=== PATIENT | male | born 1935 | race Caucasian/White ===

== ENCOUNTER 2019-09-13 13:16 | Outpatient (CLI) | payer MEDICARE, SELFPAY ==
--- NOTE | ~2019-09-13 | MR_ITS ---
EXAMINATION: MR hip RT wo con DATE: 09/13/2019 16:02 INDICATION: Right lower limb pain. TECHNIQUE: Magnetic resonance imaging (MRI) of the right hip was performed without intravenous contra st. Sequences included axial and coronal PD-weighted FS FSE and axial T1-weighted FSE of the pelvis. Sequences of the hip included 2D FIESTA, T1-weighted fast GRE, and axial, coronal, and sagittal PD-we ighted FS FSE. COMPARISON: Pelvis and right hip radiographs 08/20/2019, 04/13/11 FINDINGS: Bones/cartilage: There is lumbar dextrocurvature and severe spondylosis. No fracture. There is a chronic 11 mm nonaggr essive lytic lesion with sclerotic margin in the intertrochanteric region of proximal right femur, li rachel a benign lesion such as fibrous dysplasia, intraosseous lipoma, or liposclerosing myxofibrous tu mor. There is a total left hip arthroplasty with associated artifact. There is mild right hip osteoar thritis. Labrum: There is a tear of the right acetabular labrum. Fluid: There is no right hip joint effusion. There is mild right-sided trochanteric bursitis. Soft tissues: There is moderate tendinopathy of the right hamstring origin. The right iliopsoas tendon is normal. T he right gluteus minimus and gluteus medius tendons are normal. IMPRESSION: 1. Mild right hip osteoarthritis. Reviewed, dictated and finalized at location A. SYSTEMS DEVELOPER
== END 2019-09-13 13:17 | disposition home or self-care (01) ==
PROVIDERS: PCP Family Medicine; Visit Provider Family Medicine
DX: M79.669 Pain in unspecified lower leg (principal); M16.11 Unilateral primary osteoarthritis, right hip
CPT/HCPCS: 73721

== ENCOUNTER 2019-10-11 13:09 | Emergency (ER) | payer MEDICARE, SELFPAY ==
--- NOTE | ~2019-10-11 | XR_ITS ---
EXAMINATION: XR chest 1V portable EXAM DATE: 10/11/2019 14:48 INDICATION: Shortness of breath. TECHNIQUE: Portable AP frontal chest x-ray was obtained. Comparison is made to prior examination from 05/30/2019. FINDINGS: Again there is elevated right hemidiaphragm. The cardiomediastinal silhouette is prominent but magnified on this AP technique. Sternotomy wires are present without findings to suggest sternal dehiscence. Probably right basilar atelectasis. The lungs are otherwise clear. There are no pleural effusions. The cardiomediastinal silhouette is within normal limits. There is no pneumothorax suspe cted. The bones and soft tissues are unremarkable. There is aortic arterial sclerosis. IMPRESSION: Right basilar atelectasis with elevated right hemidiaphragm, present in May but new s makayla January. Reviewed, dictated and finalized at location B. ER SECURITY ADMINISTRATOR IMPRESSION: Right basilar atelectasis with elevated right hemidiaphragm, presen t in May but new since January.
[2019-10-11 13:11] VITALS: BP 122/68; PULSE 90; RESP 18; TEMP 36.6; O2SAT 93
--- NOTE | 2019-10-11 13:55 | ED.SOB ---
HPI - SOB/Dyspnea General Chief Complaint: Shortness of Breath/Dyspnea Stated Complaint: SOB Time Seen by Provider: 10/11/19 13:34 Source: patient Mode of arrival: ambulatory Limitations: no limitations History of Present Illness HPI Narrative: Pt is an 84 y/o male who presents to the ED with c/o SOB with exertion. Per family, pt was taken off insulin a while ago for his diabetes and recently his BS has been in the 200's. His PCP told him that if it stayed in the 200's they would put him back on insulin but they could not get a hold of his PCP. His PCP is Dr. Guido and his mix maker is Dr. Cheung. He denies a cough or difficulty urinating and states that he is on a 20mg water pill. 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 MD elicited complaint: shortness of breath Timing: constant Exacerbating factors: exertion Relieving factors: rest Associated symptoms: denies other symptoms Related Data Home Medications Medication Instructions Recorded Confirmed atorvastatin 40 mg tablet 40 mg PO DAILY 07/02/19 ezetimibe 10 mg tablet 10 mg PO DAILY 07/02/19 folic acid 800 mcg tablet 0.8 mg PO DAILY 07/02/19 nebivolol 10 mg tablet 10 mg PO DAILY 07/02/19 sitagliptin 100 mg tablet 100 mg PO DAILY 07/02/19 acetaminophen 500 mg PO Q6H PRN 10/11/19 aspirin [Aspir-81] 10/11/19 budesonide-formoterol [Symbicort] INHALATION 10/11/19 nifedipine PO 10/11/19 Allergies Allergy/AdvReac Type Severity Reaction Status Date / Time Penicillins Allergy Severe Anaphylaxis Verified 10/11/19 14:54 Review of Systems Review of Systems: All systems reviewed & are unremarkable except as noted in HPI and below Respiratory: Respiratory: Denies cough and Reports dyspnea Genitourinary: Genitourinary: Denies other (difficulty urinating) [facility] Past Medical History Medical History Allergic rhinitis Atherosclerotic heart disease of [place] coronary artery with unspecified angina pectoris Cervical radiculopathy due to degenerative joint disease of spine Chronic right SI joint pain History of stent insertion of renal artery Kidney stones Mixed conductive and sensorineural hearing loss, bilateral Mixed hyperlipidemia Occlusion and stenosis of bilateral carotid arteries Other specific joint derangements of right hip, not elsewhere classified Peripheral arterial disease 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 HEAD: Normocephalic, atraumatic. EYES: PERRLA and EOMI. ENT: Nares clear,. Mucous membranes moist. NECK: Supple. CHEST: Clear to auscultation. No respiratory distress. HEART: Regular rate and rhythm. No murmur heard. Normal peripheral pulses. ABDOMEN: Soft, non tender, non distended, normal active bowel sounds. EXTREMITIES: Normal range of motion. No edema. SKIN: Warm, dry, no rash. NEURO: No focal deficits. Alert and oriented x3. PSYCH: Normal mood and affect. Course Course Emergency Course: I had a long discussion about his lab work with the family. Family is concerned about his elevated blood sugars. This time he has been taking Januvia however he was on prednisone which could be attributing to elevated blood sugar however he has stopped the medication for a few days. I discussed this case with Dr. Huy Guido. Rec
[2019-10-11 14:31] VITALS: BP 143/89; PULSE 75; RESP 20; TEMP 36.2; O2SAT 94
[2019-10-11 14:39] LABS: Basophils Absolute Auto 0.1 K/mm3 (0.0-0.1); Basophils Percent Auto 0.9 % (0.2-1.2); Eosinophils Absolute Auto 0.2 K/mm3 (0-0.3); Eosinophils Percent Auto 2.3 % (0-4.4); Hematocrit 43.4 % (42.0-52.0); Hemoglobin 14.8 g/dL (14.0-18.0); Immature Granulocyte Absolute 0.04 K/mm3 (0.00-0.031); Immature Granulocyte Percent A 0.5 % (0-0.5); Lymphocytes Percent Auto 23.3 % (18.3-44.2); Mean Corpuscular HGB Conc 34.1 g/dl (32-36); Mean Corpuscular Hemoglobin 31.8 pg (26-34); Mean Corpuscular Volume 93.1 fl (80-100); Mean Platelet Volume 10.1 fl (7.4-10.4); Monocytes Absolute Auto 0.8 K/mm3 (0.1-0.6); Neutrophils Absolute Auto 5.2 K/mm3 (1.3-6.7); Platelet Count Result 151 k/mm3 (150-375); Red Blood Count 4.66 M/mm3 (4.6-6.20); Red Cell Distribution Width 12.2 % (11.5-14.5); White Blood Count 8.2 K/mm3 (4.5-10.0)
[2019-10-11 14:42] VITALS: PULSE 76; O2SAT 94
--- NOTE | 2019-10-11 14:47 | ECG_ITS ---
Measurements Intervals [place] Rate: 85 P: 81 FL: 281 QRS: -54 QRSD: 81 T: 38 QT: 366 QTc: 437 Interpretive Statements SINUS RHYTHM WITH FIRST DEGREE AV BLOCK ANTEROSEPTAL INFARCT, AGE INDETERMINATE INFERIOR INFARCT, AGE INDETERMINATE BASELINE ARTIFACT- I, II, III, AVR, AVL ABNORMAL ECG Electronically Signed On 10-11-2019 15:07:29 CRIMINAL RECORDS TECHNICIAN by Gilberto Head D.O.
[2019-10-11 14:52] LABS: Alanine Aminotransferase 28 U/L (4-50); Albumin Level 3.9 g/dL (3.5-5.1); Alkaline Phosphatase 88 U/L (38-126); Aspartate Amino Transferase 26 U/L (17-59); Bilirubin,Total 0.4 mg/dL (0.2-1.3); Blood Urea Nitrogen 19 mg/dL (9-20); Calcium 9.3 mg/dL (8.4-10.2); Carbon Dioxide 28 mmol/L (22-30); Chloride 100 mmol/L (98-107); Estimated CRCL calculation 55 ml/min; Estimated Glomerular Filt Rate > 60; Glucose 274 mg/dL (75-110); Potassium 3.9 mmol/L (3.4-5.0); Sodium 138 mmol/L (137-145)
[2019-10-11 15:04] LABS: NT Pro B Type Natriuretic Pept 607 PG/ML (5-100); Troponin I 0.014 ng/mL (0.000-0.034)
[2019-10-11 16:20] VITALS: BP 141/76; PULSE 71; RESP 18; O2SAT 94
== END 2019-10-11 16:22 | disposition home or self-care (01) ==
LOC: ANHED 13:46
PROVIDERS: Emergency Provider Family Medicine; PCP Family Medicine
DX: R06.02 Shortness of breath (principal); E11.51 Type 2 diabetes mellitus with diabetic peripheral angiopathy without gangrene; Z95.1 Presence of aortocoronary bypass graft; I25.10 Atherosclerotic heart disease of native coronary artery without angina pectoris; Z87.442 Personal history of urinary calculi; E78.2 Mixed hyperlipidemia; G58.8 Other specified mononeuropathies; M19.042 Primary osteoarthritis, left hand; M19.041 Primary osteoarthritis, right hand; Z96.642 Presence of left artificial hip joint; Z95.3 Presence of xenogenic heart valve; I44.0 Atrioventricular block, first degree; R94.31 Abnormal electrocardiogram [ECG] [EKG]; M47.12 Other spondylosis with myelopathy, cervical region; H90.6 Mixed conductive and sensorineural hearing loss, bilateral; M48.061 Spinal stenosis, lumbar region without neurogenic claudication
CPT/HCPCS: 36415; 71045; 80053; 83880; 84484; 85025; 93005; 99284

== ENCOUNTER 2020-02-29 09:36 | Inpatient (IN) | payer MEDICARE, SELFPAY ==
[2020-02-29] VITALS (12 sets, daily range): BP systolic 120–141; BP diastolic 52–82; PULSE 75–95; RESP 15–23; TEMP 36.5–37.6; O2SAT 93–98; BMI 21.8
--- NOTE | ~2020-02-29 | CT_ITS ---
EXAMINATION: CTA brain carotid DATE: 03/02/2020 11:59 INDICATION: Cerebrovascular accident. TECHNIQUE: Computed tomographic angiography (CTA) of the head was performed without and with 100 mL O mnipaque-350 intravenous contrast. CTA of the neck was performed with intravenous contrast. Automated exposure control and iterative reconstruction technique were employed. The dose-length product was 1 650.82 mGy-cm. Maximum intensity projection and volume rendered 3D-reconstructions were created by mariah siu technologist on a separate workstation. COMPARISON: Head CT 02/29/2020, brain MRI 09/04/2014, ultrasound 02/29/2020 FINDINGS: HEAD CTA: Motion artifact is noted. There is an infarct involving the left basal ganglia and left int ernal capsule. There are scattered areas of low attenuation in the cerebral white matter. There is no intracranial hemorrhage, acute infarction, or abnormal intracranial mass lesion. The ventricles are normal in size. The vertebral arteries are codominant. There is no significant stenosis of basilar ar [place] or the posterior cerebral arteries. The posterior communicating arteries are normal. There is mi ld of the intracranial internal carotid arteries. There is no significant stenosis of the anterior or middle cerebral arteries. Anterior communicating artery is normal. There is no aneurysm. NECK CTA: There is no significant stenosis of the vertebral arteries. There is plaque in the proximal internal carotid arteries. There is 18% stenosis of the proximal right internal carotid artery relat danny to normal distal artery lumen diameter (NASCET criteria). There is 70% stenosis of the proximal l eft internal carotid artery relative to normal distal artery lumen diameter. There are no pathologica lly enlarged lymph nodes. There is severe cervical spondylosis. IMPRESSION: 1. 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 2. No aneurysm or significant intracranial arterial stenosis. 3. 18% stenosis of the proximal right internal carotid artery relative to normal distal artery lumen diameter (NASCET criteria). 4. 70% stenosis of the proximal left internal carotid artery relative to normal distal artery lumen d iameter. Reviewed, dictated and finalized at location A. IMPRESSION: 1. 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 2. No aneurysm or significant intracranial arterial stenosis. 3. 18% stenosis of the proximal right internal carotid artery relative to obey l distal artery lumen diameter (NASCET criteria). 4. 70% stenosis of the proximal left internal carotid artery relative to normal distal artery lumen diameter.
--- NOTE | ~2020-02-29 | XR_ITS ---
XR abdomen/kub 1V DATE: 03/03/2020 12:23 INDICATION: Abdominal pain TECHNIQUE: Portable supine AP view on 03/03/2020 at 1217 hours COMPARISON: None FINDINGS: There is severe degenerative change of the lower thoracic and lumbar spine including severe degenerative disease throughout the lumbar and lumbosacral area. Assessment left total hip arthroplasty. Proxy 7 cm wide stool ball is noted at the rectum. There is a prominent amount of fecal material in t he transverse and right colon. No bowel obstruction is evident. There is calcification and tortuosity of the abdominal aorta. Iliac and femoral artery calcifications are noted. Surgical clips overlie the right upper quadrant, likely due to cholecystectomy. Status post sternotomy. IMPRESSION: 7 cm stool ball in the rectum and prominent of fecal material in the transverse and right colon; no bowel obstruction is evident Severe degenerative changes of the thoracic and lumbar spine Status post left hip arthroplasty Status post sternotomy Status post cholecystectomy Reviewed, dictated and finalized at Location A. Reviewed, dictated and finalized at location B. IMPRESSION: 7 cm stool ball in the rectum and prominent of fecal material in th e transverse and right colon; no bowel obstruction is evident Severe degenerative changes of the thoracic and lumbar spine Status post left hip arthroplasty Status post sternotomy Status post cholecystectomy
--- NOTE | ~2020-02-29 | XR_ITS ---
EXAMINATION: XR hand RT 2V DATE: 03/03/2020 13:10 INDICATION: Right hand pain and swelling. TECHNIQUE: 2 views of right hand were obtained. COMPARISON: Right hand radiographs 02/22/2017 FINDINGS: There is dorsal tilt of scaphoid, consistent with dorsal intercalated segmental instability . There is an old healed fracture of distal radius with 4 degrees palmar tilt of the distal articular surface. There is severe osteoarthritis of lunate-capitate and scaphoid-capitate joints. There is se zaina osteoarthritis of triscaphe joint and mild osteoarthritis of first carpometacarpal joint. There is moderate osteoarthritis of second and third metacarpophalangeal joints. There is mild osteoarthrit is of most of the interphalangeal joints. There is an ossicle distal to ulnar styloid. There is chond rocalcinosis of triangular fibrocartilage. IMPRESSION: 1. Dorsal intercalated segmental instability (DISI). 2. Polyarticular osteoarthritis. Reviewed, dictated and finalized at location A.
--- NOTE | ~2020-02-29 | XR_ITS ---
EXAMINATION: XR chest 1V portable INDICATION: Confusion and weakness TECHNIQUE: Portable AP chest at 1011 hours COMPARISON: 10/11/2019 FINDINGS: The lungs are free of acute opacities. There is elevation of the right hemidiaphragm. No pl eural effusion or pneumothorax is identified. The cardiomediastinal silhouette is stable. Median ster notomy wires and mediastinal surgical clips are seen, likely from prior coronary artery bypass grafti ng. IMPRESSION: 1. No acute cardiopulmonary abnormality. Reviewed, dictated and finalized at location A.
--- NOTE | ~2020-02-29 | US_ITS ---
EXAMINATION: US carotid duplex BI DATE: 03/01/2020 13:54 INDICATION: Left basal ganglia infarct. TECHNIQUE: Grayscale, color Doppler, and pulsed Doppler images of the cervical carotid arteries were obtained. The degree of vessel stenosis is placed in one of the following categories: normal, <50%, 5 0-69%, >=70% but less than near-occlusion, near-occlusion, or total occlusion. Note that percent sten osis relative to normal distal artery lumen diameter is indirectly measured from velocity measurement s as described by Esau, et al. Radiology 2003; 229:340-346. COMPARISON: None. FINDINGS: RIGHT: The right common carotid artery (CCA) peak systolic velocity (PSV) is 40 cm/s. The right internal car otid artery (ICA) PSV is 91 cm/s. The right ICA end-diastolic velocity (EDV) is 25 cm/s. The right IC A/CCA PSV ratio is 2.3. Grayscale and color Doppler images yield an estimate of <50% diameter reducti on from plaque in the ICA. There is antegrade flow in the right vertebral artery. LEFT: The left CCA PSV is 52 cm/s. The left ICA PSV is 280 cm/s. The left ICA EDV is 41 cm/s. The left ICA/ CCA PSV ratio is 5.4. Grayscale and color Doppler images yield an estimate of >=50% diameter reductio n from plaque in the ICA. There is antegrade flow in the left vertebral artery. IMPRESSION: 1. <50% stenosis in the right internal carotid artery. 2. >=70% stenosis in the left internal carotid artery, but less than near occlusion. Reviewed, dictated and finalized at location A. IMPRESSION: 1. <50% stenosis in the right internal carotid artery. 2. >=70% stenosis in the left internal carotid artery, but less than near occlu nakul.
--- NOTE | ~2020-02-29 | XR_ITS ---
EXAMINATION: XR abdomen/kub 1V EXAM DATE: 03/04/2020 15:22 INDICATION: Follow-up stool ball. TECHNIQUE: Frontal projection(s) of the abdomen for interpretation. Comparison is made to prior exami nation from 03/03/2020. FINDINGS: Interval decrease in moderate amount of rectosigmoid stool and gas. Advanced thoracolumbar spondylosis. Left hip replacement. No small bowel obstruction. There are cholecystectomy clips. IMPRESSION: 1. Decrease in quantity of rectosigmoid stool and gas. Reviewed, dictated and finalized at location A.
--- NOTE | ~2020-02-29 | CT_ITS ---
EXAMINATION: CT brain wo con INDICATION: Confusion COMPARISON: 09/04/2014, 07/24/2008 TECHNIQUE: Standard unenhanced head CT. The dose-length product (DLP) was 605.33 mGy-cm. The mA was a djusted according to patient size. Iterative reconstruction technique was employed. FINDINGS: There is no acute intraparenchymal hemorrhage. No evidence of mass lesion. There is low att enuation in the left basal ganglia which is new since the comparison examinations. There is mild jacy ventricular and subcortical hypodensity probably related to small vessel ischemic disease. There is m ild prominence of the sulci and ventricles related to cerebral atrophy. Intracranial calcified cerebr al atherosclerosis is noted. There are no extra-axial collections. There is no mass effect or midline shift. Changes in the globes are likely from ocular lens surgery. The visualized sinuses and mastoid air cells are well aerated. IMPRESSION: 1. New area of low attenuation in the left basal ganglia, consistent with subacute versus chronic inf arct. 2. Age related findings. Reviewed, dictated and finalized at location A. IMPRESSION: 1. New area of low attenuation in the left basal ganglia, consistent with subac ayden versus chronic infarct. 2. Age related findings.
--- NOTE | ~2020-02-29 | US_ITS ---
EXAMINATION: US renal BI EXAM DATE: 03/02/2020 12:12 INDICATION: Left flank pain. TECHNIQUE: Multiple grayscale and Doppler images of the kidneys were obtained (by a technologist who performed the scan) and subsequently reviewed. There is no prior study for comparison. FINDINGS: Right kidney: There is normal contour and echogenicity. It measures 9.9 x 5.6 x 7.0 centimeters. Th ere are no focal renal lesions identified. There is no hydronephrosis. Left kidney: There is normal contour and echogenicity. It measures 9.6 x 5.3 x 5.4 centimeters. The re are no focal renal lesions identified. There is no hydronephrosis. Bladder unremarkable. IMPRESSION: 1. Sonographically unremarkable kidneys. Reviewed, dictated and finalized at location A.
--- NOTE | 2020-02-29 09:49 | ECG_ITS ---
Measurements Intervals [place] Rate: 85 P: 49 CO: 279 QRS: -58 QRSD: 81 T: 13 QT: 356 QTc: 425 Interpretive Statements SINUS RHYTHM WITH FIRST DEGREE AV BLOCK ATRIAL PREMATURE COMPLEXES INFERIOR INFARCT, AGE INDETERMINATE ANTEROSEPTAL INFARCT, AGE INDETERMINATE BASELINE ARTIFACT- I, II, III, AVR, AVL, AVF ABNORMAL ECG Electronically Signed On 02-29-2020 14:06:26 CDT by Gilberto Head D.O.
[2020-02-29 09:52] LABS: Glucose Point of Care 260 (65-105)
[2020-02-29 10:02] LABS: Basophils Absolute Auto 0.1 K/mm3 (0.0-0.1); Basophils Percent Auto 0.4 % (0.2-1.2); Eosinophils Absolute Auto 0.1 K/mm3 (0-0.3); Eosinophils Percent Auto 0.7 % (0-4.4); Hematocrit 52.3 % (42.0-52.0); Hemoglobin 17.7 g/dL (14.0-18.0); Immature Granulocyte Absolute 0.05 K/mm3 (0.00-0.031); Immature Granulocyte Percent A 0.4 % (0-0.5); Lymphocytes Absolute Auto 2.02 K/mm3 (0.9-3.2); Lymphocytes Percent Auto 17.3 % (18.3-44.2); Mean Corpuscular HGB Conc 33.8 g/dl (32-36); Mean Corpuscular Hemoglobin 31.8 pg (26-34); Mean Corpuscular Volume 94.1 fl (80-100); Mean Platelet Volume 10.5 fl (7.4-10.4); Monocytes Absolute Auto 1.1 K/mm3 (0.1-0.6); Monocytes Percent Auto 9.6 % (2.6-8.5); Neutrophils Absolute Auto 8.4 K/mm3 (1.3-6.7); Neutrophils Percent Auto 71.6 % (45.5-73.1); Platelet Count Result 169 k/mm3 (150-375); Red Blood Count 5.56 M/mm3 (4.6-6.20); Red Cell Distribution Width 13.2 % (11.5-14.5); White Blood Count 11.7 K/mm3 (4.5-10.0)
[2020-02-29 10:12] LABS: Prothrombin Time 12.5 Seconds (11.1-14.7)
[2020-02-29 10:13] LABS: Partial Thromboplastin Time 22.5 SECONDS (22.3-36.8)
[2020-02-29 10:23] LABS: Blood Urea Nitrogen 18 mg/dL (9-20); Calcium 9.5 mg/dL (8.4-10.2); Carbon Dioxide 28 mmol/L (22-30); Chloride 102 mmol/L (98-107); Estimated CRCL calculation 59 ml/min; Estimated Glomerular Filt Rate > 60; Glucose 244 mg/dL (75-110); Potassium 4.3 mmol/L (3.4-5.0); Sodium 141 mmol/L (137-145)
[2020-02-29 10:34] LABS: Troponin I 0.021 ng/mL (0.000-0.034)
--- NOTE | 2020-02-29 10:40 | ED.NEUROSD ---
HPI - Neuro Symptoms/Deficit General Chief Complaint: Suspected CVA <FLORENTINO Duong Last Filed: 02/29/20 13:53> Stated Complaint: cva? s/s start x1 week ago <FLORENTINO Duong Last Filed: 02/29/20 13:53> Time Seen by Provider: 02/29/20 10:12 <FLORENTINO Duong Last Filed: 02/29/20 13:53> Source: patient and family <FLORENTINO Duong Last Filed: 02/29/20 13:53> Mode of arrival: wheelchair <FLORENTINO Duong Last Filed: 02/29/20 13:53> Limitations: altered mental status <FLORENTINO Duong Last Filed: 02/29/20 13:53> History of Present Illness HPI Narrative: This is a 84 year old male that presents to the ER for weakness x 1 week. History given by . Reports he has not wanted to get out of bed at all this week. Reports he has been confused as well. Reports this morning he could not remember how to check his blood sugar which he does himself daily which concerned her and prompted for her to bring him in for evaluation. Reports she thought he may be dehydrated so stopped giving him his lasix this week. Patient denies fever, chest pain, shortness of breath, abdominal pain, vomiting or dysuria. <FLORENTINO Duong Last Filed: 02/29/20 13:53> Related Data Home Medications: Home Medications Medication Instructions Recorded Confirmed folic acid 800 mcg tablet 0.8 mg PO DAILY 07/02/19 11/05/19 sitagliptin 100 mg tablet 100 mg PO DAILY 07/02/19 11/05/19 aspirin [Aspir-81] 10/11/19 11/05/19 <FLORENTINO Duong Last Filed: 02/29/20 13:53> Allergies/Adverse Reactions: Allergies Allergy/AdvReac Type Severity Reaction Status Date / Time Penicillins Allergy Severe Anaphylaxis Verified 02/29/20 10:00 <FLORENTINO Duong Last Filed: 02/29/20 13:53> Review of Systems Review of Systems: Narrative: CONSTITUTIONAL: Denies fever EYES: Denies visual changes CARDIOVASCULAR: Denies chest pain RESPIRATORY: Denies cough or dyspnea. GASTROINTESTINAL: Denies abdominal pain, nausea, vomiting GENITOURINARY: Denies dysuria NEUROLOGIC: Denies headache, numbness <Rosario Sandoval PA-C - Last Filed: 02/29/20 13:53> All systems reviewed & are unremarkable except as noted in HPI and below <Rosario Sandoval PA-C - Last Filed: 02/29/20 13:53> [facility] Social History Social History: Social History Smoking status: Never smoker Alcohol intake: current Gender identity (if verbalized by the patient): Male <Rosario Sandoval PA-C - Last Filed: 02/29/20 13:53> Exam Narrative: Exam Narrative: GENERAL: Elderly, well-nourished, and in no acute distress. HEAD: Normocephalic, atraumatic. EYES: PERRLA and EOMI. ENT: Nares clear, no rhinorrhea or epistaxis. Mucous membranes moist. Oropharynx without tonsillar hypertrophy exudate or other lesions. Bilateral TMs pearly srivastava non-bulging NECK: Supple. No adenopathy or masses. CHEST: Clear to auscultation. No respiratory distress. No wheezes rales or rhonchi HEART: Regular rate and rhythm. No murmur heard. Normal peripheral pulses. ABDOMEN: Soft, nontender, nondistended, normal active bowel sounds. EXTREMITIES: Normal range of motion. No edema. Strength equal in bilateral upper and lower extremities (5/5) SKIN: Warm, dry, no rash. NEURO: No focal deficits. Alert and oriented x2. PSYCH: Normal mood and affect <Rosario Sandoval PA-C - Last Filed: 02/29/20 13:53> Course RINK RAT/PA Physician Supervision Patient presented for evaluation of altered mental status, intermittent difficulty with speech and forgetfulness per . At the time of initial assessment, ABCs are intact, vital signs are stable. No focal neurologic deficits on exam. NIH SS of 1. Patient is outside any sort of TPA window given obscure timeline of symptoms. IV access obtained and labs are drawn. EKG without acute ischemic changes. CT scan with subacute infarct present neuro
[2020-02-29 11:58] LABS: NT Pro B Type Natriuretic Pept 813 PG/ML (5-100)
--- NOTE | 2020-02-29 16:16 | ADMGEN ---
This patient, Marco A Metcalf, was admitted to Medical Room 258-. Patient/family oriented to hospital policies and general routines including ID bracelet, bed and alarms, visiting hours, pain management, procedures, bathroom and other care routines, personal items, smoking policy, room service/diet, and visiting hours. Valuables list has been completed. Information on how to activate the Rapid Response Team has been discussed. Patient/Family are encouraged to report perceived risks to care and to ask questions if they do not understand what they are told or what they should do.
--- NOTE | 2020-02-29 20:33 | PM.IMHP ---
H&P: HPI History of Present Illness Chief complaint: cv Narrative: Marco A Metcalf is a 84 year old male who has a history of aortic valve replacement and CABG. To the emergency room with complaining of some weakness for at least 1 week. His was giving the history in the emergency room. The patient is able to answer some questions but is still having some expressive aphasia. The patient has not been able to get out of bed this week. He tells me that occasionally uses a walker. But he was too weak to get out of bed today. He typically checks his blood sugars by himself on a daily basis and on he was not checking them himself. The patient felt that he was dehydrated and and he stopped taking his Lasix. He is also diabetic and says that his blood sugars are typically in the 100s. He has not had any fever chills. No cough. Head CT was read as new area of low attenuation in the left basal ganglia, consistent with subacute versus chronic infarct. Age-related findings. Chest x-ray no acute cardiopulmonary abnormalities. Neurology has been consulted. MRI has been ordered for tomorrow. Patient appears to weaker on his right side and possible right facial droop and some mild expressive aphasia. Blood sugar 244. Date of service 02/29/2020 Review of Systems Review of Systems: All systems reviewed & are unremarkable except as noted in HPI and below Constitutional: Constitutional: Reports as per HPI and Reports no additional constitutional complaints Eyes: Eyes: Reports as per HPI and Reports no additional eye complaints ENT: Reports system reviewed and no additional complaints, except as documented and Reports Normal hearing present Cardiovascular: Cardiovascular: Reports no additional cardiovascular complaints Respiratory: Respiratory: Reports no additional respiratory complaints and Reports no additional respiratory complaints Gastrointestinal: Gastrointestinal: Reports as per HPI and Reports no additional gastrointestinal complaints Musculoskeletal: Musculoskeletal: Reports no additional musculoskeletal complaints Integumentary/Breasts: Skin/Breast: Reports system reviewed and no additional complaints, except as docu and Reports as per HPI Neurologic: Reports system reviewed and no additional complaints, except as documented, Reports as per HPI and Reports Normal hearing present Psychiatric: Psychiatric: Reports no additional psychiatric complaints and Reports as per HPI Endocrine: Endocrine: Reports no additional endocrine complaints Hematologic/Lymphatic: Hematologic/Lymphatic: Reports no additional hematologic/lymphatic complaints Allergic/Immunologic: Allergic/Immunologic: Reports no additional allergic/immunologic complaints [facility] Past Medical History Medical History (Updated 02/29/20 @ 13:50 by Rosario Sandoval PA-C) Allergic rhinitis Atherosclerotic heart disease of [place] coronary artery with unspecified angina pectoris Cervical radiculopathy due to degenerative joint disease of spine Chronic right SI joint pain Cough History of stent insertion of renal artery Kidney stones Mixed conductive and sensorineural hearing loss, bilateral Mixed hyperlipidemia Occlusion and stenosis of bilateral carotid arteries Other specific joint derangements of right hip, not elsewhere classified Peripheral arterial disease 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
[2020-02-29 20:48] LABS: Glucose Point of Care 191 (65-105)
[2020-03-01] VITALS (10 sets, daily range): BP systolic 115–134; BP diastolic 57–69; PULSE 86–96; RESP 16–22; TEMP 36.6–37.3; O2SAT 91–93
[2020-03-01 05:18] LABS: Basophils Absolute Auto 0.1 K/mm3 (0.0-0.1); Basophils Percent Auto 0.6 % (0.2-1.2); Eosinophils Absolute Auto 0.1 K/mm3 (0-0.3); Hematocrit 46.7 % (42.0-52.0); Hemoglobin 15.7 g/dL (14.0-18.0); Immature Granulocyte Absolute 0.04 K/mm3 (0.00-0.031); Immature Granulocyte Percent A 0.4 % (0-0.5); Lymphocytes Absolute Auto 1.98 K/mm3 (0.9-3.2); Lymphocytes Percent Auto 18.7 % (18.3-44.2); Mean Corpuscular HGB Conc 33.6 g/dl (32-36); Mean Corpuscular Hemoglobin 31.5 pg (26-34); Mean Corpuscular Volume 93.6 fl (80-100); Mean Platelet Volume 10.1 fl (7.4-10.4); Monocytes Absolute Auto 1.4 K/mm3 (0.1-0.6); Monocytes Percent Auto 13.1 % (2.6-8.5); Neutrophils Percent Auto 66.2 % (45.5-73.1); Platelet Count Result 158 k/mm3 (150-375); Red Blood Count 4.99 M/mm3 (4.6-6.20); Red Cell Distribution Width 13.2 % (11.5-14.5); White Blood Count 10.6 K/mm3 (4.5-10.0)
[2020-03-01 05:37] LABS: Alanine Aminotransferase 24 U/L (4-50); Albumin Level 3.7 g/dL (3.5-5.1); Alkaline Phosphatase 83 U/L (38-126); Aspartate Amino Transferase 28 U/L (17-59); Bilirubin,Total 0.8 mg/dL (0.2-1.3); Blood Urea Nitrogen 17 mg/dL (9-20); CRP 6.6 mg/dL (<1.0); Calcium 8.8 mg/dL (8.4-10.2); Carbon Dioxide 27 mmol/L (22-30); Chloride 107 mmol/L (98-107); Cholesterol 145 mg/dL (0-200); Estimated CRCL calculation 49 ml/min; Estimated Glomerular Filt Rate > 60; Glucose 149 mg/dL (75-110); HDL Direct 39 mg/dL; Magnesium 2.3 mg/dL (1.6-2.3); Potassium 4.1 mmol/L (3.4-5.0); Sodium 140 mmol/L (137-145); Triglycerides 142 mg/dL (<150)
[2020-03-01 05:46] LABS: LDL Cholesterol Direct 70 mg/dL
[2020-03-01 06:41] LABS: Hemoglobin A1C 7.9 % (<5.7)
--- NOTE | 2020-03-01 08:06 | PC.NURSE ---
Spoke to patients , Jennifer Colon, in regards to patient's heart valve and kidney stent for MRI today. According to MRI, we need more information regarding these procedures in order to have MRI done. Jennifer Colon stated the artificial heart valve was placed 2018 and the card she has reads the device # as [id number], [employer]. The kidney stent on the left was placed in 1999 at [facility] but she does not have any further information on this. She consented to us faxing to obtain more information from [facility] if we need to. Relayed information to MRI who stated that we will need to fax off for more information on kidney stent.
[2020-03-01] MEDS: ASPIRIN 81 MG ENTERIC TABLET PO (08:12)
[2020-03-01] MEDS: NEBIVOLOL HCL 5 MG TABLET 10 MG PO (08:12)
[2020-03-01] MEDS: ATORVASTATIN 40 MG TABLET PO (08:13)
[2020-03-01] MEDS: ERGOCALCIFEROL 50,000 UNIT CAPSULE 50000 UNITS PO (08:13)
[2020-03-01] MEDS: FOLIC ACID 0.4 MG TABLET 0.8 MG PO (08:13)
[2020-03-01] MEDS: NIFEdipine 30 MG TAB.ER.24 90 MG PO (08:13)
[2020-03-01] MEDS: EZETIMIBE 10 MG TABLET PO (08:15)
[2020-03-01] MEDS: INSULIN ASPART (*BKC) 100 UNITS/ML SUB-Q (08:29)
[2020-03-01 08:47] LABS: Glucose Point of Care 255 (65-105)
--- NOTE | 2020-03-01 09:46 | PM.IMPN ---
Progress Note: A&P Assessment and Plan (1) Acute CVA (cerebrovascular accident): Code(s): I63.9 - Cerebral infarction, unspecified Status: Acute Assessment and Plan: Pt has symptoms of stroke, head CT the patient had a new area of low attenuation left basal ganglial, consistent with subacute versus chronic infarction. Age related findings.awaiting MRI , echo and Us carotids PT/ OT/ speech theraphy. started on baby ASA (2) Type 2 diabetes mellitus without complications: Qualifiers: Diabetes mellitus prison insulin use: unspecified prison insulin use status Qualified Code(s): E11.9 - Type 2 diabetes mellitus without complications Code(s): E11.9 - Type 2 diabetes mellitus without complications Status: Acute Assessment and Plan: Were going to check A1c and do sliding scale insulin. Continue with Januvia. (3) Mixed hyperlipidemia: Code(s): E78.2 - Mixed hyperlipidemia Status: Acute Assessment and Plan: Continue with Zetia and Lipitor (4) Renovascular hypertension: Code(s): I15.0 - Renovascular hypertension Status: Acute Assessment and Plan: Continue with nifedipine, Bystolic, and Procardia Subjective Date/time seen: 03/01/20 09:46 Interval history: Dixon is a 84 year old male who has a history of aortic valve replacement and CABG. To the emergency room with complaining of some weakness for at least [address] shows low attenuation in the left basal ganglia, consistent with subacute versus chronic infarct. Age-related findings. Pt is presently having left lower leg weakness and is having expressive dysphasia, pt is having speech theraphy at the bedside. Review of Systems Review of Systems: All systems reviewed & are unremarkable except as noted in HPI and below Exam Const: General: cooperative, healthy appearing, comfortable, no acute distress, well developed, alert, awake and Physically active Nutritional Appearance: average body habitus, well nourished and overweight Orientation/consciousness: oriented to person and oriented to place Other: Expressive aphasia Chest: Chest palpation & inspection: normal inspection of the chest Resp: Effort & Inspection: normal respiratory effort Auscultation: clear to auscultation bilaterally Percussion: percussion normal Cardio: Palpation: normal PMI Rate: regular rate Rhythm: regular rhythm Heart sounds: S1 normal heart sound present and S2 normal heart sound present Peripheral pulses: Peripheral pulses 2+ throughout GI: Inspection: normal to inspection Auscultation: normal bowel sounds Rectal Exam: deferred : General: Yes no CVA tenderness Neuro: General: oriented to person, oriented to place and Unable to assess gait Cranial nerves: Yes Equal, round and reactive pupils present and Yes Normal hearing present Speech: Abnormal speech present and Expressive aphasia present Gait exam (Neuro): Unable to assess gait Motor exam (neuro): Pronator motor function not present (Patient stated that he had difficulty raising his arms bilaterally), Abnormal motor strength present, Abnormal muscle tone present (Right upper extremity seems slightly weaker than the left) and Other motor observations present (When sitting up the patient drips to the right side) Sensory Exam: normal sensation Other: expressive dysphasia Psych: Mental Status: mental status grossly normal Objective Data Vital Signs Vital Signs: Vital Signs - 24 hr 02/29/20 09:50 02/29/20 09:58 02/29/20 11:26 Temperature Pulse Rate 85 75 Respiratory Rate 22 H 20 Blood Pressure 122/52 L 130/67 Pulse Oximetry 94 98 95 02/29/20 13:02 02/29/20 14:00 02/29/20 15:33 Temperature 36.6 C Pulse Rate 75 89 94 Respiratory Rate 18 23 H 15 Blood Pressure 126/65 140/64 141/82 H Pulse Oximetry 98 95 02/29/20 15:39 02/29/20 16:00 02/29/20 16:39 Temperature 36.6 C 36.5 C Pulse Rate 95 87 86 Respiratory Rate 16 18
[2020-03-01 11:26] LABS: Glucose Point of Care 189 (65-105)
--- NOTE | 2020-03-01 12:38 | PC.NURSE ---
Addendum entered by Kasia Arroyo RN 03/01/20 12:49: Notified Dr. Mcmullen also. He stated that if we are unable to get enough information to do MRI, we can repeat the CT scan of brain in 3 days. Original Note: Information received from [facility] regarding patients left kidney stent placement. Faxed down to MRI. Spoke to agricultural technical officer who stated the information we received from [facility] was not the appropriate information that we need in order to verify stent is compatible with MRI. Looked at patients old records and he just had an MRI here 08/2019. Notified agricultural technical officer of this and she stated that due to liability issues, we still are not able to do the MRI without having the exact stent information today. at the bedside and notified of all of this information. She looked through her paperwork and has no further information regarding the stent. She is going to head home and see if she can look through her old papers and find more information. Botany Technician, Lluvia, called back over to [facility]' vat house laborer to obtain more information. However, she stated that all the information she had was sent to us and that we would need to call back tomorrow (Monday) to speak with medical records department (who is currently closed). Notified Dr. Buckley.
--- NOTE | 2020-03-01 15:06 | PCPTNOTE ---
PT/OT orders received on this patient...attempted to see patient this afternoon, but he was at a procedure...will see tomorrow as appropriate
[2020-03-01 16:42] LABS: Glucose Point of Care 126 (65-105)
--- NOTE | 2020-03-01 18:26 | CONS_ITS ---
DATE OF CONSULTATION: Patient of Dr. Guido and Dr. Latanya Buckley. An 84-year-old has been admitted to [facility] through the emergency room for the complaint of weakness of 1 wake duration with speech difficulties. As per the information available, he uses a walker at home, but was too weak to get out of the bed on the day of visit to the ER. He has been checking the blood sugar by himself on a daily basis. Recently, he was not checking. He was dehydrated and he stopped taking his Lasix also. His blood sugar generally runs in 100s. He has no associated generalized symptomatology as cough, chills, fever. Initial CT scan in the emergency room revealed low attenuation to left basal ganglia, raising the possibility of subacute versus chronic infarct. Chest x-ray was negative. MRI was ordered. The initial blood sugar was 244. 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 He has undergone back surgery, left hip replacement, appendectomy, CABG, cholecystectomy, and xenogenic heart valve present. SOCIAL HISTORY: He is a never smoker, never drinker. MEDICATIONS: Has been taking sitagliptin 100 mg daily, ezetimibe 10 mg daily, atorvastatin 40 mg daily, nebivolol 10 mg daily, aspirin 81 mg daily, cholecalciferol 1250 daily, empagliflozin 10 mg daily, folic acid 0.8 mg daily, nifedipine 90 mg daily. ALLERGIES: HE IS ALLERGIC TO PENICILLIN. PHYSICAL EXAMINATION: VITAL SIGNS: Evaluation up until now documented him to be afebrile with pulse of 87, respirations 18, blood pressure 122/52, pulse ox 98%. HEENT: Head normocephalic with no cranial bruit, in no obvious acute distress, overweight, opened two eyes regard to the physician. Head normocephalic. NECK: Supple with bruit. HEART: Regular. LUNGS: Clear with no rhonchi and crepitation. ABDOMEN: Soft. Normal bowel sounds. NEUROLOGICAL: He is awake, alert regard to the physician, regard the instruction, but having difficulties in expressing. Pupils round, regular. Durán of vision present to the threat stimuli. Extraocular movements are full with no nystagmus. Face is symmetrical. Tongue midline. Motor examination revealed him to have right-sided pronator drift. Deep tendon reflexes are sluggish. Plantars are questionably up on the right. LABORATORY DATA: Evaluation up until now includes CBC with WBC 10.6, hemoglobin 15.7, platelet count 158. Basic metabolic panel normal. Glucose is 149. Repeat 255 to 189. A1c 7.9. C-reactive protein 6.6, triglycerides 142, LDL 70 with HDL 39, TSH 3.170. Head CT scan, new area of low attenuation in the left basal ganglia consistent with subacute versus chronic infarct as mentioned above, and at this stage, MRI has not been done. IMPRESSION: Generalized weakness with some difficulties in speech. Even though the CT scan is negative, MRI will be obtained, but if the MRI cannot be done, we will wait for several days and repeat the CT scan. In the meantime, he will continue with his diabetic treatment, aspirin, and physical therapy evaluation will be recommended. LEANA MUHAMMAD M.D. SOILS TECHNICIAN
[2020-03-01 21:32] LABS: Glucose Point of Care 163 (65-105)
[2020-03-02] VITALS (10 sets, daily range): BP systolic 117–141; BP diastolic 51–59; PULSE 72–97; RESP 12–16; TEMP 36.8–37.3; O2SAT 94–95; BMI 21.8
--- NOTE | 2020-03-02 | ECHO_ITS ---
Patient Info Name: Marco A Metcalf Age: 84 years : 1935 Gender: Male Ht: 70 in Wt: 152 lbs BSA: 1.84 m2 HR: 103 bpm BP: 141 / 59 mmHg Heart Rhythm: Left Bundle Branch Block Technical Quality: Good Exam Date: 03/02/2020 1:31 PM Exam Location: [facility] Patient Status: Inpatient Admit Date: 02/29/2020 Staff Ordering Physician: Aminta Jones NP [place] Operator: Sincere Michelle RDCS Attending Provider: Latanya Buckley MD Referring Physician: Robert PEREZ; Exam Type: CA echo doppler w bubble study Study Info Indications 436.0 - CVA Complete two-dimensional, color flow and Doppler transthoracic echocardiogram is performed with agitated saline. Contrast/Agitated Saline Contrast/Ag. Saline: Agitated Saline Amount: 18.00 ml Existing IV Access: Yes History/Risk Factors CVA; CAD s/p 2vCABG 2001 and BioAVR 2019, HTN, DM2. Summary 1. Technically difficult study with limited views. 2. Saline contrast study with and without Valsalva negative for [id number] shunt. 3. Normal left ventricular size with moderate concentric left ventricular hypertrophy. Left ventricular systolic function is normal with left ventricular ejection fraction calculated at 55%, bioprosthetic aortic valve which is well seated with normal function, moderate left atrial enlargement. Left Ventricle Left ventricular chamber dimension is normal. Left ventricular systolic function is normal, estimated at Empty. There is moderately increased left ventricular wall thickness. Left ventricular septal wall motion is abnormal with septal motion related to bundle branch block. The left ventricular diastolic function is abnormal. There is no thrombus visualized in the left ventricle. E/e' 21.4 is moderately elevated. Right Ventricle Right ventricular chamber dimension is normal. Right ventricular systolic function is normal. There is no mass visualized in the right ventricle. Ventricular Septum Intact interventricular septum visualized by 2D imaging. Left Atria Left atrial chamber dimension is moderately enlarged. Left atrial chamber dimension is moderately enlarged. Right Atria Right atrial chamber dimension is normal. Aortic Valve The bioprosthetic aortic valve is structurally and functionally normal by two-dimensional, color flow Doppler and Doppler interrogation. There is no bioprosthetic aortic valve stenosis. There is no regurgitation of the bioprosthetic aortic valve. Pulmonic Valve The pulmonic valve is not well visualized. There is no pulmonic valve stenosis. There is trace pulmonic regurgitation. Mitral Valve The mitral valve has thickened leaflets. There is mild mitral valve regurgitation. There is no mitral valve stenosis. The mitral valve has thickened leaflets. There is no mitral valve stenosis. There is mild mitral valve regurgitation. Tricuspid Valve The tricuspid valve is not well visualized. There is mild tricuspid valve regurgitation. There is no significant tricuspid valve stenosis. The tricuspid valve leaflets are not well visualized. There is no significant tricuspid valve stenosis. There is mild tricuspid valve regurgitation. Pericardium/Pleural The pericardium appears normal. There is no pericardial effusion. Inferior Vena Cava Normal inferior vena cava with >50% collapse upon inspiration consistent with Empty right atrial pressure, 5 mmHg. Aorta The aor
[2020-03-02 07:39] LABS: Glucose Point of Care 153 (65-105)
[2020-03-02] MEDS: ERGOCALCIFEROL 50,000 UNIT CAPSULE 50000 UNITS PO (08:28)
[2020-03-02] MEDS: FOLIC ACID 0.4 MG TABLET 0.8 MG PO (08:28)
[2020-03-02] MEDS: NEBIVOLOL HCL 5 MG TABLET 10 MG PO (08:28)
[2020-03-02] MEDS: ASPIRIN 81 MG ENTERIC TABLET PO (08:28)
[2020-03-02] MEDS: EZETIMIBE 10 MG TABLET PO (08:29)
[2020-03-02] MEDS: NIFEdipine 30 MG TAB.ER.24 90 MG PO (08:29)
[2020-03-02] MEDS: ATORVASTATIN 40 MG TABLET PO (08:29)
--- NOTE | 2020-03-02 11:01 | WPDNEUROPN ---
Progress Note: A&P Assessment and Plan (1) Acute CVA (cerebrovascular accident): Code(s): I63.9 - Cerebral infarction, unspecified Status: Acute (2) Primary cancer of skin of shoulder: Qualifiers: Laterality: right Qualified Code(s): C44.602 - Unspecified malignant neoplasm of skin of right upper limb, including shoulder Code(s): C44.601 - Unspecified malignant neoplasm of skin of unspecified upper limb, including shoulder Status: Acute (3) Vision changes: Code(s): H53.9 - Unspecified visual disturbance Status: Acute (4) Type 2 diabetes mellitus without complications: Qualifiers: Diabetes mellitus roasterman insulin use: unspecified roasterman insulin use status Qualified Code(s): E11.9 - Type 2 diabetes mellitus without complications Code(s): E11.9 - Type 2 diabetes mellitus without complications Status: Acute (5) Spinal stenosis of lumbar region at multiple levels: Code(s): M48.061 - Spinal stenosis, lumbar region without neurogenic claudication Status: Acute (6) Renovascular hypertension: Code(s): I15.0 - Renovascular hypertension Status: Acute (7) Primary osteoarthritis of both hands: Code(s): M19.041 - Primary osteoarthritis, right hand; M19.042 - Primary osteoarthritis, left hand Status: Acute (8) Presence of xenogenic heart valve: Code(s): Z95.3 - Presence of xenogenic heart valve Status: Acute (9) Peripheral arterial disease: Code(s): I73.9 - Peripheral vascular disease, unspecified Status: Acute (10) Allergic rhinitis: Code(s): J30.9 - Allergic rhinitis, unspecified Status: Acute (11) Occlusion and stenosis of bilateral carotid arteries: Code(s): I65.23 - Occlusion and stenosis of bilateral carotid arteries Status: Acute (12) Mixed hyperlipidemia: Code(s): E78.2 - Mixed hyperlipidemia Status: Acute (13) Mixed conductive and sensorineural hearing loss, bilateral: Code(s): H90.6 - Mixed conductive and sensorineural hearing loss, bilateral Status: Acute (14) Cervical radiculopathy due to degenerative joint disease of spine: Code(s): M47.22 - Other spondylosis with radiculopathy, cervical region Status: Acute (15) Atherosclerotic heart disease of [place] coronary artery with unspecified angina pectoris: Code(s): I25.119 - Atherosclerotic heart disease of [place] coronary artery with unspecified angina pectoris Status: Acute (16) Phrenic nerve palsy: Code(s): G58.8 - Other specified mononeuropathies Status: Acute (17) Chronic right SI joint pain: Code(s): M53.3 - Sacrococcygeal disorders, not elsewhere classified; G89.29 - Other chronic pain Status: Acute (18) Other specific joint derangements of right hip, not elsewhere classified: Code(s): M24.851 - Other specific joint derangements of right hip, not elsewhere classified Status: Acute Additional Plan basal gangliar stroke with left ica 70% stenosis on ultra sound will get CTA Review of Systems Review of Systems: All systems reviewed & are unremarkable except as noted in HPI and below Exam Const: General: cooperative and no acute distress Nutritional Appearance: obese HENMT: Ears: hearing grossly impaired General nose exam: Normal external nose present and No nasal discharge present Eyes: General: appearance normal, both eyes and all related structures Neck: Neck: normal visual inspection, full ROM and no lymphadenopathy Resp: Effort & Inspection: normal respiratory effort Auscultation: clear to auscultation bilaterally Cardio: Rate: regular rate Rhythm: regular rhythm GI: Percussion: Yes normal to percussion Auscultation: normal bowel sounds Skin: General skin exam: no rashes or lesions noted Neuro: General: oriented to person, oriented to place and moves all extremities Cranial nerves: Yes Equa
[2020-03-02 11:33] LABS: Glucose Point of Care 249 (65-105)
[2020-03-02] MEDS: INSULIN ASPART (*BKC) 100 UNITS/ML SUB-Q (11:33)
--- NOTE | 2020-03-02 12:50 | PM.IMPN ---
Progress Note: A&P Assessment and Plan (1) Acute CVA (cerebrovascular accident): Code(s): I63.9 - Cerebral infarction, unspecified Status: Acute Assessment and Plan: Pt has symptoms of stroke, head CT the patient had a new area of low attenuation left basal ganglial, consistent with subacute versus chronic infarction. Age related findings.awaiting MRI , echo and Us carotids PT/ OT/ speech theraphy. started on baby ASA 03/02/20 12:50 Dixon is a 84 year old male who has a history of aortic valve replacement and CABG. To the emergency room with complaining of some weakness for at least [address] showed low attenuation in the left basal ganglia, consistent with subacute versus chronic infarct. Age-related findings. 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, discussed with the clean rice broker, patient is unable to have MRI due to previous renal stent, will do CTA of the head and consult clean rice broker further recommendation, patient also complained of left flank pain is been going on for 3 weeks, no rash found along dermatome, will do renal ultrasound to further evaluate, Pt is presently having left lower leg weakness and is having expressive dysphasia, pt is having speech theraphy at the bedside. (2) Type 2 diabetes mellitus without complications: Qualifiers: Diabetes mellitus and rescue fire fighter crash fire insulin use: unspecified penitentiary insulin use status Qualified Code(s): E11.9 - Type 2 diabetes mellitus without complications Code(s): E11.9 - Type 2 diabetes mellitus without complications Status: Acute Assessment and Plan: Were going to check A1c and do sliding scale insulin. patient hemoglobin A1c is 7.9, suggesting poorly controlled. will need diabetic Education, Continue with Januvia. (3) Mixed hyperlipidemia: Code(s): E78.2 - Mixed hyperlipidemia Status: Acute Assessment and Plan: Continue with Zetia and Lipitor (4) Renovascular hypertension: Code(s): I15.0 - Renovascular hypertension Status: Acute Assessment and Plan: Continue with nifedipine, Bystolic, and Procardia Subjective Date/time seen: 03/02/20 12:50 Dixon is a 84 year old male who has a history of aortic valve replacement and CABG. To the emergency room with complaining of some weakness for at least [address] showed low attenuation in the left basal ganglia, consistent with subacute versus chronic infarct. Age-related findings. 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, discussed with the clean rice broker, patient is unable to have MRI due to previous renal stent, will do CTA of the head and consult clean rice broker further recommendation, patient also complained of left flank pain is been going on for 3 weeks, no rash found along dermatome, will do renal ultrasound to further evaluate, Pt is presently having left lower leg weakness and is having expressive dysphasia, pt is having speech theraphy at the bedside. Review of Systems Review of Systems: All systems reviewed & are unremarkable except as noted in HPI and below Exam Const: General: no acute distress and uncomfortable HENMT: General nose exam: Normal nares present Eyes: General: appearance normal, both eyes and all related structures Sclera: sclerae normal Neck: Neck: supple Resp: Effort & Inspection: normal respiratory effort Auscultation: clear to auscultation bilaterally Cardio: Rate: regular rate Rhythm: regular rhythm GI: Auscultation: normal bowel sounds Skin: General skin exam: no rashes or lesions noted Neuro: Speech: normal speech Sensory Exam: normal sensation Extrem: General: normal to inspection Psych: Affect: Anxious affect present Objective Data Vital Signs Vital Signs: Vital Signs - 24 hr 03/01/20 14:00 03/01/20 16:00 03/01/20 20:00 Temperature 98 F Pulse Rate 87 86 90 Respiratory Rate 22 H Blood Pressure 122/62 Pulse Oximetry 93 07/1
--- NOTE | 2020-03-02 14:21 | PM.CNCAR ---
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 -Carotid ultrasound and head and neck CTA images this admission were reviewed by Dr. Wilner Romero and Dr. Moscoso, with findings of moderate 70% stenosis of the proximal left internal carotid artery. -He had carotid Doppler 03/01/2020: Less than 50% stenosis in the right internal carotid artery, greater than or equal to 70% stenosis in left internal carotid artery, but less than near occlusion. -He had CT of the head and neck on 03/02/2020: Subacute versus chronic infarct involving the left basal ganglia and internal capsule, no aneurysm or significant intracranial arterial stenosis, 18% stenosis of the proximal right internal carotid artery relative to normal distal artery lumen diameter, 70% stenosis of the proximal left internal carotid artery relatively normal distal artery lumen diameter. -plan for follow-up with his primary title i director Dr. Cheung in 1 week, with anticipation for repeat carotid ultrasound in 1 month. -began Plavix 75 mg daily, with continuation of aspirin 81 mg daily. -he needs to keep LDL less than 70 and HDL greater than 40. -continue atorvastatin and Zetia. (2) Renovascular hypertension: Code(s): I15.0 - Renovascular hypertension Status: Acute Assessment and Plan: -he has a history of renal artery stent. -blood pressure well controlled to mildly elevated. -allow for permissive hypertension in setting of subacute CVA. (3) Mixed hyperlipidemia: Code(s): E78.2 - Mixed hyperlipidemia Status: Acute Assessment and Plan: -he needs to keep LDL less than 70 and HDL greater than 40. -continue atorvastatin and Zetia. -LDL 70 this admission. -increased atorvastatin 40 mg to 80 mg q.h.s. 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 -he denies recent chest pain. -EKG without evidence of acute injury. -initial troponin I negative for injury. -continue aspirin. -continue statin and Zetia. (5) Occlusion and stenosis of bilateral carotid arteries: Code(s): I65.23 - Occlusion and stenosis of bilateral carotid arteries Status: Acute Assessment and Plan: -Carotid ultrasound and head and neck CTA images this admission were reviewed by Dr. Wilner Romero and Dr. Moscoso, with findings of moderate 70% stenosis of the proximal left internal carotid artery. -He had carotid Doppler 03/01/2020: Less than 50% stenosis in the right internal carotid artery, greater than or equal to 70% stenosis in left internal carotid artery, but less than near occlusion. -He had CT of the head and neck on 03/02/2020: Subacute versus chronic infarct involving the left basal ganglia and internal capsule, no aneurysm or significant intracranial arterial stenosis, 18% stenosis of the proximal right internal carotid artery relative to normal distal artery lumen diameter, 70% stenosis of the proximal left internal carotid artery relatively normal distal artery lumen diameter. -plan for follow-up with his primary title i director Dr. Cerda
[2020-03-02 14:26] LABS: SARS-CoV-2 RNA PCR Negative
[2020-03-02 16:52] LABS: Glucose Point of Care 145 (65-105)
[2020-03-02] MEDS: GLUCOSE ORAL GEL 15 GM OF GLUCSE IN 37.5 GM TUBE PO (21:15)
[2020-03-02] MEDS: CLOPIDOGREL BISULFATE 75 MG TABLET PO (22:33)
[2020-03-02] MEDS: ATORVASTATIN 40 MG TABLET 80 MG PO (22:33)
[2020-03-02 23:27] LABS: Glucose Point of Care 25 (65-105)
[2020-03-02 23:27] LABS: Glucose Point of Care 202 (65-105)
[2020-03-02 23:28] LABS: Glucose Point of Care 217 (65-105)
[2020-03-03] VITALS (10 sets, daily range): BP systolic 113–122; BP diastolic 48–63; PULSE 68–95; RESP 12–18; TEMP 36.1–36.6; O2SAT 93–96
[2020-03-03 01:03] LABS: Glucose Point of Care 166 (65-105)
[2020-03-03 07:40] LABS: Glucose Point of Care 164 (65-105)
[2020-03-03] MEDS: NIFEdipine 30 MG TAB.ER.24 90 MG PO (09:01)
[2020-03-03] MEDS: EZETIMIBE 10 MG TABLET PO (09:01)
[2020-03-03] MEDS: ASPIRIN 81 MG ENTERIC TABLET PO (09:01)
[2020-03-03] MEDS: FOLIC ACID 0.4 MG TABLET 0.8 MG PO (09:01)
[2020-03-03] MEDS: NEBIVOLOL HCL 5 MG TABLET 10 MG PO (09:02)
[2020-03-03] MEDS: ERGOCALCIFEROL 50,000 UNIT CAPSULE 50000 UNITS PO (09:02)
--- NOTE | 2020-03-03 09:22 | PM.PNCARD ---
Progress Note: A&P Assessment and Plan (1) Acute CVA (cerebrovascular accident): Code(s): I63.9 - Cerebral infarction, unspecified Status: Acute Assessment and Plan: continue dual anti-platelet therapy, continue high-dose statin and Zetia. Blood pressure is controlled. Continue his regimen. Will need outpatient follow-up and possible referral to vascular surgery for consideration of carotid endarterectomy (2) Atherosclerotic heart disease of [place] coronary artery with unspecified angina pectoris: Code(s): I25.119 - Atherosclerotic heart disease of [place] coronary artery with unspecified angina pectoris Status: Acute Assessment and Plan: continue medications as above (3) Mixed hyperlipidemia: Code(s): E78.2 - Mixed hyperlipidemia Status: Acute (4) Carotid artery stenosis with cerebral infarction: Code(s): I63.239 - Cerebral infarction due to unspecified occlusion or stenosis of unspecified carotid artery Status: Acute Assessment and Plan: as above Subjective Date/time seen: 03/03/20 09:22 Interval history: Dixon is a 84 year old male who has a history of aortic valve replacement and CABG. To the emergency room with complaining of some weakness for at least [address] shows low attenuation in the left basal ganglia, consistent with subacute versus chronic infarct. Age-related findings. Pt is presently having left lower leg weakness and is having expressive dysphasia, pt is having speech theraphy at the bedside. Date of service 03/03/2020: No exertional chest pain, no shortness of breath. Does answer questions Review of Systems Review of Systems: All systems reviewed & are unremarkable except as noted in HPI and below Constitutional: Constitutional: Denies weakness Eyes: Eyes: Denies blurry vision ENT: Denies nasal discharge Cardiovascular: Cardiovascular: Denies chest pain Respiratory: Respiratory: Denies dyspnea Gastrointestinal: Gastrointestinal: Denies abdominal pain Genitourinary: Genitourinary: Denies hematuria Musculoskeletal: Musculoskeletal: Denies neck pain Integumentary/Breasts: Skin/Breast: Denies dry skin Neurologic: Denies headache(s) Comments: expressive aphasia Psychiatric: Psychiatric: Denies anxiety Exam Narrative: Exam Narrative: alert Const: General: no acute distress; No in distress HENMT: General nose exam: Normal nares present Eyes: Sclera: sclerae normal Neck: Neck: no JVD Resp: Auscultation: clear to auscultation bilaterally Cardio: Rate: regular rate Heart sounds: Murmur heart sound present GI: Auscultation: normal bowel sounds Skin: General skin exam: normal color Neuro: Other: expressive aphasia Extrem: General: normal to inspection and no edema Psych: Mental Status: mental status grossly normal Objective Data Vital Signs Vital Signs: Vital Signs - 24 hr 03/02/20 12:00 03/02/20 14:00 03/02/20 16:00 Temperature 37.3 C Pulse Rate 95 86 90 Respiratory Rate 16 Blood Pressure 117/51 L Pulse Oximetry 94 03/02/20 20:00 03/02/20 21:55 03/03/20 00:00 Temperature 37.2 C Pulse Rate 97 72 68 Respiratory Rate 12 Blood Pressure 127/54 L Pulse Oximetry 95 03/03/20 04:00 03/03/20 06:00 03/03/20 08:00 Temperature 36.6 C Pulse Rate 86 80 92 Respiratory Rate 12 Blood Pressure 113/63 Pulse Oximetry 96 03/03/20 09:02 Temperature Pulse Rate 84 Respiratory Rate Blood Pressure Pulse Oximetry Intake/Output Intake/Output: Intake & Output 02/29/20 03/01/20 03/02/20 03/03/20 23:59 23:59 23:59 23:59 Intake Total 560 1060 1070 560 Output Total 380 Balance 963 696 0665 560 Meds/Results Medications: Active Medications Generic Name Dose Route Start Last Admin Trade Name Freq PRN Reason Stop Dose Admin Aspirin 81 mg 03/01/20 09:00 03/03/20 09:01 Aspirin Ec PO 81 mg QAM BILL Administration Atorvastatin Chandu
[2020-03-03 11:34] LABS: Glucose Point of Care 199 (65-105)
[2020-03-03] MEDS: CLOPIDOGREL BISULFATE 75 MG TABLET PO (12:05)
[2020-03-03 16:52] LABS: Glucose Point of Care 216 (65-105)
[2020-03-03] MEDS: INSULIN ASPART (*BKC) 100 UNITS/ML SUB-Q (16:54)
--- NOTE | 2020-03-03 18:08 | PM.IMPN ---
Progress Note: A&P Assessment and Plan (1) Acute CVA (cerebrovascular accident): Code(s): I63.9 - Cerebral infarction, unspecified Status: Acute Assessment and Plan: Pt has symptoms of stroke, head CT the patient had a new area of low attenuation left basal ganglial, consistent with subacute versus chronic infarction. Age related findings.awaiting MRI , echo and Us carotids PT/ OT/ speech theraphy. started on baby ASA 03/03/20 18:08 Dixon is a 84 year old male who has a history of aortic valve replacement and CABG. To the emergency room with complaining of some weakness for at least [address] showed low attenuation in the left basal ganglia, consistent with subacute versus chronic infarct. Age-related findings. 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, discussed with the humidifier attendant, patient is unable to have MRI due to previous renal stent, will do CTA of the head and consult humidifier attendant further recommendation, patient also complained of left flank pain is been going on for 3 weeks, no rash found along dermatome, To further evaluate patient had a renal ultrasound did not show any significant pathology however patient had a KUB shows significant colon Stool and further questioning patient has not had BM since admission, will give MiraLax and dulcolax stool softener will have GI evaluate the patient for further recommendation, patient also complains of right hand, no trauma while in the hospital, x-ray showed severe osteoarthritis and joints will place the patient splint and consult orthopedic. (2) Type 2 diabetes mellitus without complications: Qualifiers: Diabetes mellitus nursing home insulin use: unspecified nursing home insulin use status Qualified Code(s): E11.9 - Type 2 diabetes mellitus without complications Code(s): E11.9 - Type 2 diabetes mellitus without complications Status: Acute Assessment and Plan: Were going to check A1c and do sliding scale insulin. patient hemoglobin A1c is 7.9, suggesting poorly controlled. will need diabetic Education, Continue with Januvia. (3) Mixed hyperlipidemia: Code(s): E78.2 - Mixed hyperlipidemia Status: Acute Assessment and Plan: Continue with Zetia and Lipitor (4) Renovascular hypertension: Code(s): I15.0 - Renovascular hypertension Status: Acute Assessment and Plan: Continue with nifedipine, Bystolic, and Procardia Subjective Date/time seen: 03/03/20 18:08 Dixon is a 84 year old male who has a history of aortic valve replacement and CABG. To the emergency room with complaining of some weakness for at least [address] showed low attenuation in the left basal ganglia, consistent with subacute versus chronic infarct. Age-related findings. 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, discussed with the humidifier attendant, patient is unable to have MRI due to previous renal stent, will do CTA of the head and consult humidifier attendant further recommendation, patient also complained of left flank pain is been going on for 3 weeks, no rash found along dermatome, To further evaluate patient had a renal ultrasound did not show any significant pathology however patient had a KUB shows significant colon Stool and further questioning patient has not had BM since admission, will give MiraLax and dulcolax stool softener will have GI evaluate the patient for further recommendation, patient also complains of right hand, no trauma while in the hospital, x-ray showed severe osteoarthritis and joints will place the patient splint and consult orthopedic. Review of Systems Review of Systems: All systems reviewed & are unremarkable except as noted in HPI and below Exam Narrative: Exam Narrative: elderly frail Const: General: comfortable and no acute distress HENMT: General nose exam: Normal nares present Eyes: General: appearance normal, both eyes and all related structures Sclera: s
[2020-03-03] MEDS: polyethylene glycoL 3350 17 GM POWD.PACK PO (18:47)
[2020-03-03] MEDS: BISACODYL 5 MG TABLET EC PO (18:47)
[2020-03-03] MEDS: ATORVASTATIN 40 MG TABLET 80 MG PO (20:57)
[2020-03-04] VITALS (8 sets, daily range): BP systolic 126–128; BP diastolic 52–57; PULSE 78–94; RESP 16–20; TEMP 35.9–36.4; O2SAT 93–97
[2020-03-04 00:03] LABS: Glucose Point of Care 236 (65-105)
[2020-03-04] MEDS: BISACODYL 5 MG TABLET EC PO ×2 (07:49→16:56)
[2020-03-04] MEDS: polyethylene glycoL 3350 17 GM POWD.PACK PO (07:49)
[2020-03-04 07:52] LABS: Glucose Point of Care 169 (65-105)
[2020-03-04] MEDS: NEBIVOLOL HCL 5 MG TABLET 10 MG PO (08:39)
[2020-03-04] MEDS: ERGOCALCIFEROL 50,000 UNIT CAPSULE 50000 UNITS PO (08:39)
[2020-03-04] MEDS: CLOPIDOGREL BISULFATE 75 MG TABLET PO (08:40)
[2020-03-04] MEDS: ASPIRIN 81 MG ENTERIC TABLET PO (08:40)
[2020-03-04] MEDS: NIFEdipine 30 MG TAB.ER.24 90 MG PO (08:40)
[2020-03-04] MEDS: EZETIMIBE 10 MG TABLET PO (08:40)
[2020-03-04] MEDS: FOLIC ACID 0.4 MG TABLET 0.8 MG PO (08:40)
--- NOTE | 2020-03-04 09:54 | WPDGICN ---
Assessment and Plan Assessment and plan (1) Constipation: Code(s): K59.00 - Constipation, unspecified Status: Acute Assessment and Plan: Patient with constipation. Likely related to decreased mobility. Associated with his CVA. Plan is for magnesium citrate and increase frequency of laxative use. Tap water enema will be given as well hopefully to relieve constipation. (2) Acute CVA (cerebrovascular accident): Code(s): I63.9 - Cerebral infarction, unspecified Status: Acute (3) Presence of xenogenic heart valve: Code(s): Z95.3 - Presence of xenogenic heart valve Status: Acute (4) Type 2 diabetes mellitus without complications: Qualifiers: Diabetes mellitus long-term insulin use: unspecified director long term care insulin use status Qualified Code(s): E11.9 - Type 2 diabetes mellitus without complications Code(s): E11.9 - Type 2 diabetes mellitus without complications Status: Acute (5) Renovascular hypertension: Code(s): I15.0 - Renovascular hypertension Status: Acute GI Consult Note Consult date/time: 03/04/20 09:54 HPI: Marco A Metcalf is a 84 year old male Seen in evaluation at the request of the hospitalist service. Patient admitted to the hospital with CVA. During his hospital stay has been noted to have difficulty with constipation. He has had no bowel movements for at least several days patient states 3 days but may have been since admission the hospital. KUB done yesterday reveals evidence of retained stool in the colon. There has been no history of GI bleeding. Patient denies abdominal pain. Review of Systems Review of Systems: All systems reviewed & are unremarkable except as noted in HPI and below PMFSH Past Medical History Medical History Allergic rhinitis Atherosclerotic heart disease of [place] coronary artery with unspecified angina pectoris Cervical radiculopathy due to degenerative joint disease of spine Chronic right SI joint pain Cough History of stent insertion of renal artery Kidney stones Mixed conductive and sensorineural hearing loss, bilateral Mixed hyperlipidemia Occlusion and stenosis of bilateral carotid arteries Other specific joint derangements of right hip, not elsewhere classified Peripheral arterial disease 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 He could not tell me when he retired from now. 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 Patient denies any tobacco use. He states he is a social drinker occasionally drinks beer. Denies any marijuana or illicit drugs. He states that he has 3 children. Smoking status: Never smoker Alcohol intake: never Substance use: never Gender identity (if verbalized by the patient): Male Spiritual care concerns: No Meds Home Medications and Allergies Home Medications Medication Instructions Recorded Confirmed Type sitagliptin 100 mg tablet 100 mg PO DAILY 07/02/19 02/29/20 History ezetimibe 10 mg tablet 10 mg PO DAILY #90 tablet 11/12/19 02/29/20 Rx atorvastatin 40 mg tablet 40 mg PO
[2020-03-04] MEDS: MAGNESIUM CITRATE 300 ML BTL PO (11:19)
[2020-03-04 11:44] LABS: Glucose Point of Care 183 (65-105)
--- NOTE | 2020-03-04 11:56 | PM.PNCARD ---
Progress Note: A&P Additional Plan 84-year-old man with history of CVA related to carotid artery disease. Placed on dual anti-platelet therapy and clinically seems to be stable and improving. He would benefit from vascular surgery consultation and possibly carotid endarterectomy. Patient wishes to pursue this at [facility] [place] following discharge. We will assist in facilitating that referral. Huy Cheung MD [facility] Subjective Date/time seen: Date of service:03/04/20 11:56 Interval history: Follow-up visit in this 84-year-old man who presented with CVA and suspected carotid artery disease which is the culprit for this. He has coronary artery disease and aortic valve replacement and for this reason follows with me in the office. 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 He seems to be speaking reasonably well at this time. No serious trouble with expressive aphasia at the moment Exam Const: General: comfortable HENMT: Mouth: Yes moist mucous membranes Eyes: Sclera: sclerae normal Pupils: Equal, round and reactive pupils present Neck: Neck: supple and no JVD Thyroid: thyroid normal Resp: Effort & Inspection: normal respiratory effort Auscultation: clear to auscultation bilaterally Cardio: Rate: regular rate Rhythm: regular rhythm Other: grade 2/6 crescendo decrescendo murmur audible at the base GI: Auscultation: normal bowel sounds Skin: General skin exam: normal color Neuro: Cognition (Neuro): normal cognition Extrem: General: normal to inspection Objective Data Vital Signs Vital Signs: Vital Signs - 24 hr 03/03/20 12:00 03/03/20 14:00 03/03/20 16:00 Temperature 36.2 C L Pulse Rate 95 87 84 Respiratory Rate 18 Blood Pressure 122/61 Pulse Oximetry 95 03/03/20 20:00 03/03/20 22:00 03/04/20 00:00 Temperature 36.1 C L Pulse Rate 88 79 78 Respiratory Rate 18 Blood Pressure 122/48 L Pulse Oximetry 93 03/04/20 04:00 03/04/20 06:00 03/04/20 08:00 Temperature 36.4 C L Pulse Rate 84 82 94 Respiratory Rate 20 Blood Pressure 128/52 L Pulse Oximetry 93 03/04/20 08:39 Temperature Pulse Rate 82 Respiratory Rate Blood Pressure Pulse Oximetry Intake/Output Intake/Output: Intake & Output 07/19/20 07/20/20 07/21/20 07/22/20 23:59 23:59 23:59 23:59 Intake Total 1060 1070 1460 480 Output Total 380 Balance 680 1070 1460 480 Meds/Results Medications: Active Medications Generic Name Dose Route Start Last Admin Trade Name Freq PRN Reason Stop Dose Admin Aspirin 81 mg 03/01/20 09:00 03/04/20 08:40 Aspirin Ec PO 81 mg QAM BILL Administration Atorvastatin Calcium 80 mg 03/02/20 21:15 03/03/20 20:57 Lipitor PO 80 mg HS BILL Administration Bisacodyl 5 mg 03/03/20 17:00 03/04/20 07:49 Dulcolax Tab PO 5 mg BID BILL Administration Bisacodyl 10 mg 03/05/20 09:00 Dulcolax Suppository RECTAL QAM BILL Clopidogrel Bisulfate 75 mg 03/02/20 21:15 03/04/20 08:40 Plavix PO 75 mg QAM BILL Administration Dextrose 12.5 gm 02/29/20 20:21 Dextrose 50% Syringe IV PUSH PRN PRN Hypoglycemia Protocol Ezetimibe 10 mg 03/01/20 09:00 03/04/20 08:40 Zetia PO 10 mg DAILY BILL Administration Ergocalciferol 50,000 unit 03/01/20 09:00 03/04/20 08:39 Drisdol PO 50,000 unit DAILY BILL Administration Folic Acid 0.8 mg 03/01/20 09:00 03/04/20 08:40 Folic Acid PO 0.8 mg DAILY BILL Administration Glucagon 1 mg 02/29/20 20:21 Glucagon For Inj IM PRN PRN Hypoglycemia Protocol Glucose 15 gm 02/29/20 20:21 03/02/20 21:15 Glutose 15 PO 15 gm PRN PRN Administration Hypoglycemia Protocol Dextrose 1,000 mls @ 100 mls/hr 02/29/20 20:21 Dextrose 5% 1,000 Ml IVPB PRN PRN Hypoglycemia Protocol Insulin Aspart 2 - 5 units 03/01/20 08:00 03/04/20 11:46 Novolog S
--- NOTE | 2020-03-04 16:30 | PM.CNOR ---
Assessment and Plan Assessment and plan (1) Primary osteoarthritis of both hands: Code(s): M19.041 - Primary osteoarthritis, right hand; M19.042 - Primary osteoarthritis, left hand Status: Acute Assessment and Plan: Advanced arthritis at the wrist and scaphoid, with DISI deformity. Scattered moderate to severe degenerative changes throughout the hand. Acute flare up may be related to gout. No signs of infection at this time. Recommend a trial of a steroid injection at the wrist joint. He may continue to use the wrist brace for comfort. Follow up as an outpatient as needed. (2) CMC arthritis, thumb, degenerative: Code(s): M18.9 - Osteoarthritis of first carpometacarpal joint, unspecified Status: Acute (3) Wrist arthritis: Code(s): M19.039 - Primary osteoarthritis, unspecified wrist Status: Acute History of Present Illness HPI Consult date: 03/04/20 Consult reason: joint pain Chief complaint: cv Narrative: 84-year-old [id number] gentleman complains of exquisite thumb and wrist pain. He has had some intermittent symptoms in the past but more most recently has had increased swelling and pain exquisitely. He was admitted with a CVA several days ago. He denies fevers. He has had selling. Pain improved with the brace. No history of gout. No other joint complaints in particular. History of carpal tunnel surgery. Mild numbness in the hand is unchanged. Review of Systems Review of Systems: All systems reviewed & are unremarkable except as noted in HPI and below PMFSH Past Medical History Medical History Allergic rhinitis Atherosclerotic heart disease of [place] coronary artery with unspecified angina pectoris Cervical radiculopathy due to degenerative joint disease of spine Chronic right SI joint pain Cough History of stent insertion of renal artery Kidney stones Mixed conductive and sensorineural hearing loss, bilateral Mixed hyperlipidemia Occlusion and stenosis of bilateral carotid arteries Other specific joint derangements of right hip, not elsewhere classified Peripheral arterial disease 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 He could not tell me when he retired from now. 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 Patient denies any tobacco use. He states he is a social drinker occasionally drinks beer. Denies any marijuana or illicit drugs. He states that he has 3 children. Smoking status: Never smoker Alcohol intake: never Substance use: never Gender identity (if verbalized by the patient): Male Spiritual care concerns: No Meds Home Medications and Allergies Home Medications Medication Instructions Recorded Confirmed Type sitagliptin 100 mg tablet 100 mg PO DAILY 07/02/19 02/29/20 History ezetimibe 10 mg tablet 10 mg PO DAILY #90 tablet 11/12/19 02/29/20 Rx atorvastatin 40 mg tablet 40 mg PO DAILY #90 tablet 02/18/20 02/29/20 Rx nebivolol 10 mg tablet 10 mg PO DAILY #90 tablet 02/18/20 02/29/20 Rx aspirin 81 mg PO DAILY 02/29/20 02/29/20 History cholec
[2020-03-04 16:44] LABS: Glucose Point of Care 237 (65-105)
[2020-03-04] MEDS: INSULIN ASPART (*BKC) 100 UNITS/ML SUB-Q (16:56)
--- NOTE | 2020-03-04 16:59 | PM.DS ---
DS: Admitting Diagnosis Admitting Diagnosis Admitting Diagnosis: Cerebral infarction, unspecified DS: Discharge Diagnosis Discharge Diagnosis (1) Acute CVA (cerebrovascular accident): Code(s): I63.9 - Cerebral infarction, unspecified Status: Acute Assessment and Plan: Pt has symptoms of stroke, head CT the patient had a new area of low attenuation left basal ganglial, consistent with subacute versus chronic infarction. Age related findings.awaiting MRI , echo and Us carotids PT/ OT/ speech theraphy. started on baby ASA 03/03/20 18:08 Dixon is a 84 year old male who has a history of aortic valve replacement and CABG. To the emergency room with complaining of some weakness for at least [address] showed low attenuation in the left basal ganglia, consistent with subacute versus chronic infarct. Age-related findings. 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, discussed with the dance teacher, patient is unable to have MRI due to previous renal stent, will do CTA of the head and consult dance teacher further recommendation, patient also complained of left flank pain is been going on for 3 weeks, no rash found along dermatome, To further evaluate patient had a renal ultrasound did not show any significant pathology however patient had a KUB shows significant colon Stool and further questioning patient has not had BM since admission, will give MiraLax and dulcolax stool softener will have GI evaluate the patient for further recommendation, patient also complains of right hand, no trauma while in the hospital, x-ray showed severe osteoarthritis and joints will place the patient splint and consult orthopedic. 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 patient hemoglobin A1c is 7.9, suggesting poorly controlled. will need diabetic Education, Continue with Januvia. (3) Mixed hyperlipidemia: Code(s): E78.2 - Mixed hyperlipidemia Status: Chronic Assessment and Plan: Continue with Zetia and Lipitor (4) Renovascular hypertension: Code(s): I15.0 - Renovascular hypertension Status: Chronic Assessment and Plan: Continue with nifedipine, Bystolic, and Procardia DS: Summary Hospital Course Reason for hospitalization: Narrative: Marco A Metcalf is a 84 year old male who has a history of aortic valve replacement and CABG. To the emergency room with complaining of some weakness for at least 1 week. His was giving the history in the emergency room. The patient is able to answer some questions but is still having some expressive aphasia. The patient has not been able to get out of bed this week. He tells me that occasionally uses a walker. But he was too weak to get out of bed today. He typically checks his blood sugars by himself on a daily basis and on he was not checking them himself. The patient felt that he was dehydrated and and he stopped taking his Lasix. He is also diabetic and says that his blood sugars are typically in the 100s. He has not had any fever chills. No cough. Head CT was read as new area of low attenuation in the left basal ganglia, consistent with subacute versus chronic infarct. Age-related findings. Chest x-ray no acute cardiopulmonary abnormalities. Neurology has been consulted. MRI has been ordered for tomorrow. Patient appears to weaker on his right side and possible right facial droop and some mild expressive aphasia. Blood sugar 244. Date of service 02/29/2020 Hospital Course: 03/03/20 18:08 Dixon is a 84 year old male who has a history of aortic valve replacement and CABG.
[2020-03-04] MEDS: methylPREDNISolone ACETATE 40 MG/ML VIAL IM (17:06)
--- NOTE | 2020-03-04 17:10 | PM.OP ---
Procedure Note - Brief Procedure Note - Brief Date of procedure: 03/04/20 Pre-op diagnosis: cv hand and wrist arthritis, right. Post-op diagnosis: same Procedure performed: Intra-articular injection right wrist. Description of procedure: 40 mg of Depo-Medrol injected. 1 mm total. Placed at the radial aspect of the wrist and basal thumb joint. Site cleaned with chlorhexidine. 23 gauge needle used. Dressed with adhesive bandage. Anesthesia: none Surgeon: Jeramie Mansfield MD Estimated blood loss (mL): 0 Complications: None Condition: stable
== END 2020-03-04 19:02 | disposition home health service (06) | DRG 66 ==
LOC: ANHED 13:38 → ANH2MED 13:50
PROVIDERS: Family Medicine; Nurse Practitioner; Physician Assistant; Admitting Provider Family Medicine; Emergency Provider Emergency Medicine; PCP Family Medicine; Visit Provider Family Medicine
DX: I63.232 Cerebral infarction due to unspecified occlusion or stenosis of left carotid arteries (principal); R47.01 Aphasia; R29.701 NIHSS score 1; E11.51 Type 2 diabetes mellitus with diabetic peripheral angiopathy without gangrene; E78.2 Mixed hyperlipidemia; I15.0 Renovascular hypertension; I25.119 Atherosclerotic heart disease of native coronary artery with unspecified angina pectoris; M19.031 Primary osteoarthritis, right wrist; M19.042 Primary osteoarthritis, left hand; M19.041 Primary osteoarthritis, right hand; H90.6 Mixed conductive and sensorineural hearing loss, bilateral; Z11.59 Encounter for screening for other viral diseases; Z66 Do not resuscitate; Z79.82 Long term (current) use of aspirin; Z79.84 Long term (current) use of oral hypoglycemic drugs; Z88.0 Allergy status to penicillin; Z95.1 Presence of aortocoronary bypass graft; Z95.3 Presence of xenogenic heart valve; Z96.642 Presence of left artificial hip joint; G58.8 Other specified mononeuropathies; Z95.828 Presence of other vascular implants and grafts
CPT/HCPCS: 36415; 70450; 70496; 70498; 71045; 73120; 74018; 76775; 80048; 80053; 80061; 82948; 83036; 83735; 83880; 84443; 84484; 85025; 85610; 85730; 86140; 87635; 92507; 92523; 93005; 93306; 93880; 96375; 97110; 97116; 97161; 97165; 99285; A9270; C9803; J1030; J1815; Q9967; U0003

== ENCOUNTER 2020-03-05 02:04 | Observation (INO) | payer MEDICARE, SELFPAY ==
[2020-03-05 02:04] VITALS: BP 127/78; PULSE 93; RESP 18; TEMP 36.7; O2SAT 96
--- NOTE | 2020-03-05 02:07 | ED.FALL ---
HPI - Fall General Chief Complaint: Fall Stated Complaint: fell from bed Time Seen by Provider: 03/05/20 02:05 History of Present Illness HPI Narrative: He was just discharged from the hospital yesterday after being admitted for a stroke. This evening he repeatedly slipped toward the edge of the bed until he finally slipped out of the bed onto the floor. His was not able to help him up and does not think that she will be able to care for him at home in his current state. He did not hit his head or sustain any injury in the fall. Related Data Home Medications Medication Instructions Recorded Confirmed sitagliptin 100 mg tablet 100 mg PO DAILY 07/02/19 02/29/20 Jardiance 10 mg PO DAILY 02/29/20 02/29/20 aspirin 81 mg PO DAILY 02/29/20 02/29/20 cholecalciferol (vitamin D3) 1,250 mcg PO DAILY 02/29/20 02/29/20 folic acid 0.8 mg PO DAILY 02/29/20 02/29/20 nifedipine 90 mg PO DAILY 02/29/20 02/29/20 Allergies Allergy/AdvReac Type Severity Reaction Status Date / Time Penicillins Allergy Severe Swelling Verified 02/29/20 16:40 Review of Systems Review of Systems: All systems reviewed & are unremarkable except as noted in HPI and below PMFSH Past Medical History Medical History Allergic rhinitis Atherosclerotic heart disease of [place] coronary artery with unspecified angina pectoris Cervical radiculopathy due to degenerative joint disease of spine Chronic right SI joint pain Cough History of stent insertion of renal artery Kidney stones Mixed conductive and sensorineural hearing loss, bilateral Mixed hyperlipidemia Occlusion and stenosis of bilateral carotid arteries Other specific joint derangements of right hip, not elsewhere classified Peripheral arterial disease 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 He could not tell me when he retired from now. 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 His is a durable power workers compensation attorney for healthcare. Patient denies any tobacco use. He states he is a social drinker occasionally drinks beer. Denies any marijuana or illicit drugs. He states that he has 3 children. Smoking status: Never smoker Alcohol intake: former Substance use: never Gender identity (if verbalized by the patient): Male Spiritual care concerns: No Exam Const: General: no acute distress and alert Orientation/consciousness: patient oriented x3 HENMT: Head: normal to inspection Resp: Effort & Inspection: normal respiratory effort Auscultation: clear to auscultation bilaterally Cardio: Rate: regular rate Rhythm: regular rhythm Skin: General skin exam: normal color Neuro: General: moves all extremities Extrem: General: normal to inspection Course Vital Signs Vital signs: Vital Signs Temperature 36.7 C 03/05/20 02:04 Pulse Rate 93 03/05/20 02:04 Respiratory Rate 18 03/05/20 02:04 Blood Pressure 127/78 03/05/20 02:04 Pulse Oximetry 96 03/05/20 02:04 Temperature 36.7 C 03/05/20 02:04 Pulse Rate 93 03/05/20 02:04 Respiratory Rate 18 03/05/20 02:04 Blood Pressure 127/78 03/05/20 02:04 Pulse Oximetry 96 07/
[2020-03-05 03:52] VITALS: BP 124/73; PULSE 63; RESP 16; TEMP 36.7; O2SAT 96
[2020-03-05 04:01] LABS: Glucose Point of Care 167 (65-105)
[2020-03-05 04:02] VITALS: BP 154/74; PULSE 83; RESP 16; TEMP 36.4; O2SAT 96
[2020-03-05 04:03] VITALS: BMI 30.4
--- NOTE | 2020-03-05 04:05 | ADMGEN ---
This patient, Marco A Metcalf, was admitted to Medical Room 345-. Patient/family oriented to hospital policies and general routines including ID bracelet, bed and alarms, visiting hours, pain management, procedures, bathroom and other care routines, personal items, smoking policy, room service/diet, and visiting hours. Valuables list has been completed. Information on how to activate the Rapid Response Team has been discussed. Patient/Family are encouraged to report perceived risks to care and to ask questions if they do not understand what they are told or what they should do.
--- NOTE | 2020-03-05 04:31 | PM.IMHP ---
H&P: HPI History of Present Illness Chief complaint: ambulatory dysfunction Narrative: This is an 84 year old male who has a history of aortic valve replacement and CABG who was just discharged from our Hospitalist service yesterday after he was hospitalized for an acute ischemic stroke involving the left basal ganglia and internal capsule. As a result of the stroke the patient has had expressive aphasia and focal weakness of the right side of his body. The patient apparently slid out of bed tonight onto the floor and could not get up. He denied any head trauma or passing out. He could not tell me what part of his body landed on the floor first. His could not get him up so she called EMS. The patient was evaluated in the ER and was going to be discharged home when his verbalized that she could not care for him and asked for him to be admitted and placed. On my encounter with the patient tonight he has no specific complaints but does have significant expressive aphasia. 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 Other specific joint derangements of right hip, not elsewhere classified Peripheral arterial disease 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 He could not tell me when he retired from now. 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 His is a durable power consumer attorney for healthcare. Patient denies any tobacco use. He states he is a social drinker occasionally drinks beer. Denies any marijuana or illicit drugs. He states that he has 3 children. Smoking status: Never smoker Alcohol intake: never Substance use: never Gender identity (if verbalized by the patient): Male Spiritual care concerns: No Meds Home Medications and Allergies Home Medications Medication Instructions Recorded Confirmed Type sitagliptin 100 mg tablet 100 mg PO DAILY 07/02/19 02/29/20 History ezetimibe 10 mg tablet 10 mg PO DAILY #90 tablet 11/12/19 02/29/20 Rx atorvastatin 40 mg tablet 40 mg PO DAILY #90 tablet 02/18/20 02/29/20 Rx nebivolol 10 mg tablet 10 mg PO DAILY #90 tablet 02/18/20 02/29/20 Rx Jardiance 10 mg PO DAILY 02/29/20 02/29/20 History aspirin 81 mg PO DAILY 02/29/20 02/29/20 History cholecalciferol (vitamin D3) 1,250 mcg PO DAILY 02/29/20 02/29/20 History folic acid 0.8 mg PO DAILY 02/29/20 02/29/20 History nifedipine 90 mg PO DAILY 02/29/20 02/29/20 History bisacodyl [Laxative (bisacodyl)] 5 mg PO BID #60 tablet 03/04/20 Rx clopidogrel 75 mg PO QAM #30 tablet 03/04/20 Rx polyethylene glycol 3350 [Miralax] 17 g PO QAM #30 ea 03/04/20 Rx Allergies Allergy/AdvReac Type Severity Reaction
[2020-03-05 06:02] LABS: Basophils Absolute Auto 0.1 K/mm3 (0.0-0.1); Basophils Percent Auto 0.5 % (0.2-1.2); Eosinophils Absolute Auto 0.1 K/mm3 (0-0.3); Eosinophils Percent Auto 1.2 % (0-4.4); Hematocrit 44.7 % (42.0-52.0); Hemoglobin 15.1 g/dL (14.0-18.0); Immature Granulocyte Absolute 0.04 K/mm3 (0.00-0.031); Immature Granulocyte Percent A 0.4 % (0-0.5); Lymphocytes Absolute Auto 1.48 K/mm3 (0.9-3.2); Lymphocytes Percent Auto 14.7 % (18.3-44.2); Mean Corpuscular HGB Conc 33.8 g/dl (32-36); Mean Corpuscular Hemoglobin 30.8 pg (26-34); Mean Corpuscular Volume 91.2 fl (80-100); Mean Platelet Volume 10.1 fl (7.4-10.4); Monocytes Percent Auto 10.1 % (2.6-8.5); Neutrophils Absolute Auto 7.3 K/mm3 (1.3-6.7); Neutrophils Percent Auto 73.1 % (45.5-73.1); Platelet Count Result 210 k/mm3 (150-375); Red Cell Distribution Width 12.7 % (11.5-14.5)
[2020-03-05 06:22] LABS: Anion Gap 11.5 mmol/L (7-16); Blood Urea Nitrogen 28 mg/dL (9-20); Calcium 8.3 mg/dL (8.4-10.2); Carbon Dioxide 26 mmol/L (22-30); Chloride 102 mmol/L (98-107); Estimated CRCL calculation 72 ml/min; Estimated Glomerular Filt Rate > 60; Glucose 168 mg/dL (75-110); Potassium 4.5 mmol/L (3.4-5.0); Sodium 135 mmol/L (137-145)
[2020-03-05 07:42] LABS: Glucose Point of Care 184 (65-105)
[2020-03-05] MEDS: polyethylene glycoL 3350 17 GM POWD.PACK PO (09:36)
[2020-03-05 09:37] VITALS: PULSE 76
[2020-03-05] MEDS: ASPIRIN 81 MG CHEWABLE TABLET PO (09:37)
[2020-03-05] MEDS: CLOPIDOGREL BISULFATE 75 MG TABLET PO (09:37)
[2020-03-05] MEDS: NEBIVOLOL HCL 5 MG TABLET 10 MG PO (09:37)
[2020-03-05] MEDS: BISACODYL 5 MG TABLET EC PO ×2 (09:37→16:39)
[2020-03-05] MEDS: EZETIMIBE 10 MG TABLET PO (09:38)
[2020-03-05] MEDS: ATORVASTATIN 40 MG TABLET PO (09:38)
[2020-03-05] MEDS: NIFEdipine 30 MG TAB.ER.24 90 MG PO (09:38)
[2020-03-05] MEDS: FOLIC ACID 0.4 MG TABLET 0.8 MG PO (09:38)
[2020-03-05] MEDS: INSULIN ASPART (*BKC) 100 UNITS/ML SUB-Q (11:52)
[2020-03-05 11:56] LABS: Glucose Point of Care 215 (65-105)
[2020-03-05 16:00] VITALS: BP 153/73; PULSE 72; RESP 16; TEMP 36.5; O2SAT 97
--- NOTE | 2020-03-05 16:01 | PM.IMPN ---
Progress Note: A&P Assessment and Plan (1) Ambulatory dysfunction: Code(s): R26.2 - Difficulty in walking, not elsewhere classified Status: Acute Assessment and Plan: 03/05/20 16:01 patient is 84-year-old male [facility] after he was evaluated for stroke, upon arrival to home patient had difficult time maintaining his balance was not able to sit or ambulate with his walker, with help of family patient was placed on the bed and he keeps sliding to the floor and eventually he slided down to the floor without falling or any injury, patient's was not able to help him get off the floor EMS was called and patient was brought to the emergency depart for further evaluation and placement rehab as his is not able to take care of him, currently patient states is feeling better denies any chest pain shortness of breath any abdominal pain nausea or vomiting. patient will benefit from acute rehab Time Spent With Patient Time with patient: 15 - 25 minutes Subjective Date/time seen: 03/05/20 16:01 patient is 84-year-old male was [facility] after he was evaluated for stroke, upon arrival to home patient had difficult time maintaining his balance was not able to sit or ambulate with his walker, with help of family patient was placed on the bed and he keeps sliding to the floor and eventually he slided down to the floor without falling or any injury, patient's was not able to help him get off the floor EMS was called and patient was brought to the emergency depart for further evaluation and placement rehab as his is not able to take care of him, currently patient states is feeling better denies any chest pain shortness of breath any abdominal pain nausea or vomiting. Review of Systems Review of Systems: All systems reviewed & are unremarkable except as noted in HPI and below Exam Narrative: Exam Narrative: elderly frail Const: General: comfortable and no acute distress HENMT: General nose exam: Normal nares present Mouth: Yes moist mucous membranes Eyes: General: appearance normal, both eyes and all related structures Sclera: sclerae normal Neck: Neck: supple Resp: Effort & Inspection: normal respiratory effort Auscultation: clear to auscultation bilaterally Cardio: Rate: regular rate Rhythm: regular rhythm GI: Auscultation: normal bowel sounds Skin: General skin exam: normal color Neuro: Speech: normal speech Sensory Exam: normal sensation Extrem: General: normal to inspection Psych: Affect: Anxious affect present Objective Data Vital Signs Vital Signs: Vital Signs - 24 hr 03/05/20 02:04 03/05/20 03:52 03/05/20 04:02 Temperature 98.0 F 98.1 F 97.6 F Pulse Rate 93 63 83 Respiratory Rate 18 16 16 Blood Pressure 127/78 124/73 154/74 H Pulse Oximetry 96 96 96 03/05/20 09:37 Temperature Pulse Rate 76 Respiratory Rate Blood Pressure Pulse Oximetry Intake/Output Intake/Output: Intake & Output 03/02/20 03/03/20 03/04/20 03/05/20 23:59 23:59 23:59 23:59 Intake Total 545 Balance 545 Meds/Results Medications: Active Medications Generic Name Dose Route Start Last Admin Trade Name Freq PRN Reason Stop Dose Admin Acetaminophen 650 mg 03/05/20 04:41 Tylenol Tablet PO Q4H PRN Mild Pain (1-3) or Fever Aspirin 81 mg 03/05/20 08:00 03/05/20 09:37 Aspirin Chewable PO 81 mg DAILY@0800 BILL Administration Atorvastatin Calcium 40 mg 03/05/20 09:00 03/05/20 09:38 Lipitor PO 40 mg DAILY BILL Administration Bisacodyl 5 mg 03/05/20 09:00 03/05/20 09:37 Dulcolax Tab PO 5 mg BID BILL Administration Clopidogrel Bisulfate 75 mg 03/05/20 09:00 03/05/20 09:37 Plavix PO 75 mg QAM BILL Administration Dextrose 12.5 gm 03/05/20 04:42 Dextrose 50% Syringe IV PUSH PRN PRN Hypoglycemia Protocol Ezetimibe 10 mg 03/05/20 09:00 03/05/20 09:38 Zetia PO 10 mg D
[2020-03-05 16:39] LABS: Glucose Point of Care 188 (65-105)
[2020-03-05 21:02] VITALS: BP 127/56; PULSE 70; RESP 16; TEMP 36.2; O2SAT 94
[2020-03-05 22:11] LABS: Glucose Point of Care 234 (65-105)
[2020-03-06 00:44] LABS: SARS-CoV-2 RNA PCR Negative
[2020-03-06 05:11] VITALS: BP 144/67; PULSE 67; RESP 12; TEMP 36.2; O2SAT 96
[2020-03-06 07:17] LABS: Anion Gap 9.7 mmol/L (7-16); Blood Urea Nitrogen 24 mg/dL (9-20); Calcium 8.8 mg/dL (8.4-10.2); Carbon Dioxide 28 mmol/L (22-30); Chloride 106 mmol/L (98-107); Estimated CRCL calculation 65 ml/min; Estimated Glomerular Filt Rate > 60; Glucose 173 mg/dL (75-110); Potassium 4.7 mmol/L (3.4-5.0); Sodium 139 mmol/L (137-145)
[2020-03-06 07:51] LABS: Glucose Point of Care 176 (65-105)
[2020-03-06 08:25] VITALS: PULSE 69
[2020-03-06] MEDS: BISACODYL 5 MG TABLET EC PO (08:25)
[2020-03-06] MEDS: CLOPIDOGREL BISULFATE 75 MG TABLET PO (08:25)
[2020-03-06] MEDS: NEBIVOLOL HCL 5 MG TABLET 10 MG PO (08:25)
[2020-03-06] MEDS: ASPIRIN 81 MG CHEWABLE TABLET PO (08:25)
[2020-03-06 08:28] VITALS: PULSE 69; RESP 16; O2SAT 96
[2020-03-06] MEDS: FOLIC ACID 0.4 MG TABLET 0.8 MG PO (08:28)
[2020-03-06] MEDS: EZETIMIBE 10 MG TABLET PO (08:28)
[2020-03-06] MEDS: NIFEdipine 30 MG TAB.ER.24 90 MG PO (08:28)
[2020-03-06] MEDS: polyethylene glycoL 3350 17 GM POWD.PACK PO (08:28)
[2020-03-06] MEDS: ATORVASTATIN 40 MG TABLET PO (08:28)
[2020-03-06 11:53] LABS: Glucose Point of Care 186 (65-105)
[2020-03-06 14:00] VITALS: BP 132/61; PULSE 66; RESP 16; TEMP 36.5; O2SAT 100
--- NOTE | 2020-03-06 15:00 | PM.IMPN ---
Progress Note: A&P Assessment and Plan (1) Ambulatory dysfunction: Code(s): R26.2 - Difficulty in walking, not elsewhere classified Status: Acute Assessment and Plan: 03/06/20 15:00 patient is 84-year-old male was [facility] after he was evaluated for stroke, upon arrival to home patient had difficult time maintaining his balance was not able to sit or ambulate with his walker, with help of family patient was placed on the bed and he keeps sliding to the floor and eventually he slided down to the floor without falling or any injury, patient's was not able to help him get off the floor EMS was called and patient was brought to the emergency depart for further evaluation and placement rehab as his is not able to take care of him, currently patient states is feeling better denies any chest pain shortness of breath any abdominal pain nausea or vomiting. patient will benefit from acute rehab, today patient clinically stable is COVID test is negative will transfer patient to rehab tomorrow Subjective Date/time seen: 03/06/20 15:00 patient is 84-year-old male was discharged [facility] after he was evaluated for stroke, upon arrival to home patient had difficult time maintaining his balance was not able to sit or ambulate with his walker, with help of family patient was placed on the bed and he keeps sliding to the floor and eventually he slided down to the floor without falling or any injury, patient's was not able to help him get off the floor EMS was called and patient was brought to the emergency depart for further evaluation and placement rehab as his is not able to take care of him, currently patient states is feeling better denies any chest pain shortness of breath any abdominal pain nausea or vomiting. patient will benefit from acute rehab, today patient clinically stable is COVID test is negative will transfer patient to rehab tomorrow Review of Systems Review of Systems: All systems reviewed & are unremarkable except as noted in HPI and below Exam Const: General: comfortable and no acute distress HENMT: General nose exam: Normal nares present Mouth: Yes moist mucous membranes Eyes: General: appearance normal, both eyes and all related structures Sclera: sclerae normal Neck: Neck: supple Resp: Effort & Inspection: normal respiratory effort Auscultation: clear to auscultation bilaterally Cardio: Rate: regular rate Rhythm: regular rhythm GI: Auscultation: normal bowel sounds Skin: General skin exam: normal color Neuro: Speech: normal speech Sensory Exam: normal sensation Extrem: General: normal to inspection Psych: Mental Status: mental status grossly normal Affect: normal affect Objective Data Vital Signs Vital Signs: Vital Signs - 24 hr 03/05/20 16:00 03/05/20 21:02 03/06/20 05:11 Temperature 97.7 F 97.2 F L 97.1 F L Pulse Rate 72 70 67 Respiratory Rate 16 16 12 Blood Pressure 153/73 H 127/56 L 144/67 H Pulse Oximetry 97 94 96 03/06/20 08:25 03/06/20 08:28 03/06/20 14:00 Temperature 97.7 F Pulse Rate 69 69 66 Respiratory Rate 16 16 Blood Pressure 132/61 Pulse Oximetry 96 100 Intake/Output Intake/Output: Intake & Output 03/03/20 03/04/20 03/05/20 03/06/20 23:59 23:59 23:59 23:59 Intake Total 1010 860 Balance 1010 860 Meds/Results Medications: Active Medications Generic Name Dose Route Start Last Admin Trade Name Freq PRN Reason Stop Dose Admin Acetaminophen 650 mg 03/05/20 04:41 Tylenol Tablet PO Q4H PRN Mild Pain (1-3) or Fever Aspirin 81 mg 03/05/20 08:00 03/06/20 08:25 Aspirin Chewable PO 81 mg DAILY@0800 BILL Administration Atorvastatin Calcium 40 mg 03/05/20 09:00 03/06/20 08:28 Lipitor PO 40 mg DAILY BILL Administration Bisacodyl 5 mg 03/05/20 09:00 03/06/20 08:25 Dulcolax Tab PO 5 mg BID BILL Administration Clopidogrel Bisulfate 75 mg 03/05/20 09:00 0
[2020-03-06 16:46] LABS: Glucose Point of Care 205 (65-105)
[2020-03-06] MEDS: INSULIN ASPART (*BKC) 100 UNITS/ML SUB-Q (17:12)
[2020-03-06 20:48] VITALS: BP 136/63; PULSE 63; RESP 16; TEMP 36.4; O2SAT 96
[2020-03-06 20:48] LABS: Glucose Point of Care 207 (65-105)
[2020-03-07 05:39] VITALS: BP 149/68; PULSE 69; RESP 18; TEMP 36.2; O2SAT 97
[2020-03-07 06:47] LABS: Anion Gap 12.5 mmol/L (7-16); Blood Urea Nitrogen 24 mg/dL (9-20); Calcium 9.1 mg/dL (8.4-10.2); Carbon Dioxide 27 mmol/L (22-30); Chloride 104 mmol/L (98-107); Estimated CRCL calculation 65 ml/min; Estimated Glomerular Filt Rate > 60; Glucose 180 mg/dL (75-110); Potassium 4.5 mmol/L (3.4-5.0); Sodium 139 mmol/L (137-145)
[2020-03-07 07:47] LABS: Glucose Point of Care 155 (65-105)
[2020-03-07 08:10] VITALS: RESP 18; O2SAT 95
[2020-03-07] MEDS: FOLIC ACID 0.4 MG TABLET 0.8 MG PO (08:22)
[2020-03-07] MEDS: NIFEdipine 30 MG TAB.ER.24 90 MG PO (08:22)
[2020-03-07 08:23] VITALS: PULSE 67
[2020-03-07] MEDS: EZETIMIBE 10 MG TABLET PO (08:23)
[2020-03-07] MEDS: ATORVASTATIN 40 MG TABLET PO (08:23)
[2020-03-07] MEDS: NEBIVOLOL HCL 5 MG TABLET 10 MG PO (08:23)
[2020-03-07] MEDS: CLOPIDOGREL BISULFATE 75 MG TABLET PO (08:23)
[2020-03-07] MEDS: ASPIRIN 81 MG CHEWABLE TABLET PO (08:23)
[2020-03-07 11:37] LABS: Glucose Point of Care 180 (65-105)
--- NOTE | 2020-03-07 12:22 | PM.DS ---
DS: Admitting Diagnosis Admitting Diagnosis Admitting Diagnosis: Weakness DS: Summary Time Spent with Patient Time attestation: Total time spent providing and/or coordinating discharge services: DS: Data Data Completed and Pending Labs on day of discharge: Labs from last 24 hours 03/07/20 03/07/20 03/07/20 11:34 07:45 05:55 Sodium 139 Potassium 4.5 Chloride 104 Carbon Dioxide 27 Anion Gap 12.5 BUN 24 H Creatinine 0.90 Estim Creat Clear Calc 65 Estimated GFR > 60 Glucose 180 H POC Capillary Glucose 180 H 155 H Calcium 9.1 03/06/20 03/06/20 20:45 16:44 Sodium Potassium Chloride Carbon Dioxide Anion Gap BUN Creatinine Estim Creat Clear Calc Estimated GFR Glucose POC Capillary Glucose 207 H 205 H Calcium Discharge Plan Discharge Attending physician on discharge: Dl Queen Discharging Clinician: Dl Queen Patient Disposition: [facility] Long-Term/Asst Living Activity: as tolerated Diet: heart healthy Discharge Instructions: Patient to follow up with his hop separator and primary care provider as soon as possible. Patient Instructions: Antibiotic Form Stand Alone Forms: General Discharge Information Discharge Medications: Continued Januvia 100 mg tablet 100 mg PO DAILY RF: 0 potassium chloride 10 mEq Tablet Extended Release 10 meq PO DAILY RF: 0 aspirin 81 mg Tablet,Chewable 81 mg PO DAILY RF: 0 nifedipine 90 mg tablet extended release 24hr 90 mg PO DAILY RF: 0 folic acid 800 mcg Tablet 0.8 mg PO DAILY RF: 0 cholecalciferol (vitamin D3) 1,250 mcg (50,000 unit) Capsule 1,250 mcg PO DAILY RF: 0 Jardiance 10 mg Tablet 10 mg PO DAILY RF: 0 polyethylene glycol 3350 [Miralax] 17 gram Powder In Packet 17 g PO QAM Qty: 30 RF: 0 clopidogrel 75 mg Tablet 75 mg PO QAM Qty: 30 RF: 0 bisacodyl [Laxative (bisacodyl)] 5 mg Tablet,Delayed Release (Dr/Ec) 5 mg PO BID Qty: 60 RF: 0 ezetimibe 10 mg tablet 10 mg PO DAILY Qty: 90 RF: 3 atorvastatin 40 mg tablet 40 mg PO DAILY Qty: 90 RF: 3 Bystolic 10 mg tablet 10 mg PO DAILY Qty: 90 RF: 3 Date of admission: 03/05/20 02:54 Primary Care Provider: Mireya Guido Admitting Provider: Felix Velasco Attending physician on admission: Dl Queen Condition: Stable Quality VTE Prophylaxis VTE prophylaxis: mechanical ordered
--- NOTE | 2020-03-31 18:21 | PM.DS ---
DS: Admitting Diagnosis Admitting Diagnosis Admitting Diagnosis: ambulatory dysfunction DS: Discharge Diagnosis Discharge Diagnosis (1) Ambulatory dysfunction: Code(s): R26.2 - Difficulty in walking, not elsewhere classified Status: Acute Assessment and Plan: 03/06/20 15:00 patient is 84-year-old male was discharged by me yesterday after he was evaluated for stroke, upon arrival to home patient had difficult time maintaining his balance was not able to sit or ambulate with his walker, with help of family patient was placed on the bed and he keeps sliding to the floor and eventually he slided down to the floor without falling or any injury, patient's was not able to help him get off the floor EMS was called and patient was brought to the emergency depart for further evaluation and placement rehab as his is not able to take care of him, currently patient states is feeling better denies any chest pain shortness of breath any abdominal pain nausea or vomiting. patient will benefit from acute rehab, today patient clinically stable is COVID test is negative will transfer patient to rehab tomorrow DS: Summary Hospital Course Reason for hospitalization: Chief complaint: ambulatory dysfunction Narrative: This is an 84 year old male who has a history of aortic valve replacement and CABG who was just discharged from our Hospitalist service yesterday after he was hospitalized for an acute ischemic stroke involving the left basal ganglia and internal capsule. As a result of the stroke the patient has had expressive aphasia and focal weakness of the right side of his body. The patient apparently slid out of bed tonight onto the floor and could not get up. He denied any head trauma or passing out. He could not tell me what part of his body landed on the floor first. His could not get him up so she called EMS. The patient was evaluated in the ER and was going to be discharged home when his verbalized that she could not care for him and asked for him to be admitted and placed. On my encounter with the patient tonight he has no specific complaints but does have significant expressive aphasia. Hospital Course: patient is 84-year-old male was discharged by me yesterday after he was evaluated for stroke, upon arrival to home patient had difficult time maintaining his balance was not able to sit or ambulate with his walker, with help of family patient was placed on the bed and he keeps sliding to the floor and eventually he slided down to the floor without falling or any injury, patient's was not able to help him get off the floor EMS was called and patient was brought to the emergency depart for further evaluation and placement rehab as his is not able to take care of him, currently patient states is feeling better denies any chest pain shortness of breath any abdominal pain nausea or vomiting. patient will benefit from acute rehab, today patient clinically stable is COVID test is negative, patient is clinically stable, will transfer the patient to rehab today Status at Discharge Functional status at discharge: uses cane/walker Overall status at discharge: patient is back to baseline Time Spent with Patient Time attestation: Total time spent providing and/or coordinating discharge services: Patient was seen and examined at the time of the discharge Condition at discharge is stable Code status: Full code. Time spent preparing discharge summary, discharge medications, discussing discharge planning with corrections caseworker and patient is 35 minutes. Time spent: Greater than 30 minutes Exam Const: General: comfortable and no acute distress HENMT: General nose exam: Normal nares present Mouth: Yes moist mucous membranes Eyes: General: appearance normal, both eyes and all related structures Sclera: sclerae normal Neck: Neck: supple Resp: Effort & Inspection: normal respiratory effort Auscultation: clear to auscultation loulou
== END 2020-03-07 13:30 ==
LOC: ANHED 02:40 → ANH3MED 03:19
PROVIDERS: Admitting Provider Family Medicine; Emergency Provider Emergency Medicine; PCP Family Medicine; Visit Provider Family Medicine
DX: R53.1 Weakness (principal); R26.2 Difficulty in walking, not elsewhere classified; I69.320 Aphasia following cerebral infarction; E11.51 Type 2 diabetes mellitus with diabetic peripheral angiopathy without gangrene; E78.2 Mixed hyperlipidemia; I15.0 Renovascular hypertension; Z11.59 Encounter for screening for other viral diseases; Z66 Do not resuscitate; Z79.82 Long term (current) use of aspirin; Z79.899 Other long term (current) drug therapy; Z96.642 Presence of left artificial hip joint
CPT/HCPCS: 36415; 80048; 85025; 87635; 97110; 97116; 97161; 97165; 97535; 99285; A9270; C9803; G0378; J1815; U0003

== ENCOUNTER 2021-04-25 20:35 | Observation (INO) | payer MEDICARE, SELFPAY ==
[2021-04-25] VITALS (12 sets, daily range): BP systolic 148; BP diastolic 69; PULSE 100–117; RESP 13–22; TEMP 37.8–38.3; O2SAT 95–100
--- NOTE | ~2021-04-25 | CT_ITS ---
EXAMINATION: CTA brain carotid EXAM DATE: 04/25/2021 22:09 INDICATION: Speech difficulty, hx of CVA, CEA TECHNIQUE: Noncontrast head CT. Spiral CTA of the carotid arteries was performed with intravenous i njection 100 cc of Omnipaque 350. Axial, coronal, sagittal reformatted images reviewed. Additional r eformatted images created on dedicated 3-D workstation. NASCET comparable standard used to assess th e degree of arterial stenosis. Spiral CT angiogram cerebral arteries performed with the same intrave nous injection of contrast. Source images of the brain CTA transferred to dedicated workstation for 3 -D rotational image creation. Coronal, sagittal maximum intensity pixel images also reviewed. The d ose-length product (DLP) for this examination was 1910.97 mGy-cm. The exposure was tailored accordi ng to patient size, and iterative reconstruction (ASIR) was used as additional dose reduction techniq ue. Comparison is made to prior examination from 03/02/2020. FINDINGS: Study is limited due to patient motion. Mild to moderate right carotid bulb plaque is accom modated by its natural dilation, no stenosis. There is been interval left-sided endarterectomy with t he carotid bulb patent compared to previous examination, but focal 60% stenosis of the proximal ICA/c arotid bulb junction. There is rather extensive circumferential bilateral carotid siphon arterial scl erosis with up to moderate stenosis suspected, but the segments are significantly limited by motion. There are bilateral posterior communicating artery dominant posterior cerebral arteries. There is no carotid or vertebral basilar arterial dissection or fibromuscular dysplasia. There are no cerebral ar [place] aneurysms. Cerebral arteries difficult to evaluate due to motion, but arborization appears symme tric. The sagittal, transverse and sigmoid sinuses enhance normally, no venous sinus thrombosis. Inte rnal cerebral veins also enhance normally. There is old left basal ganglia lacunar infarction. There is no acute intraparenchymal hemorrhage. N o evidence of intraparenchymal brain mass lesion. No evidence of acute infarction. There is moderate periventricular and subcortical hypodensity, nonspecific but probably related to small vessel ischem ic disease. There is moderate prominence of the sulci and ventricles related to cerebral atrophy. There is no mass effect or midline shift. There is no obstructive hydrocephalus suspected. There a re no extra-axial collections. Incidental Findings: Cataract surgery. Advanced cervical spondylosis. IMPRESSION: 1. Limited by motion. No acute carotid or intracranial findings. 2. Interval left endarterectomy. Left carotid bulb/ ICA junction stenosis of 60%. 3. Right carotid bulb plaque without stenosis. 4. Old left basal ganglia lacunar infarction. Reviewed, dictated and finalized at location B. IMPRESSION: 1. Limited by motion. No acute carotid or intracranial findings. 2. Interval left endarterectomy. Left carotid bulb/ ICA junction stenosis of 6 0%. 3. Right carotid bulb plaque without stenosis. 4. Old left basal ganglia lacunar infarction.
--- NOTE | ~2021-04-25 | XR_ITS ---
XR chest 1V portable 04/25/2021 21:20 Indication: Cough, weakness and confusion Procedure: AP portable chest Comparison: Comparison to multiple prior studies sequentially, with oldest reviewed study dated 03/2019. Findings: Patchy bilateral airspace disease, compatible with pneumonia. Status post median sternotomy for CABG. Chronic elevation of the right diaphragm. There is atherosclerosis. No significant effusio n or pneumothorax. Impression: 1: Patchy bilateral airspace disease, compatible with pneumonia. Reviewed, dictated and finalized at location A. Impression: 1: Patchy bilateral airspace disease, compatible with pneumonia.
--- NOTE | 2021-04-25 20:50 | ECG_ITS ---
Measurements Intervals [place] Rate: 114 P: 49 FL: 190 QRS: -85 QRSD: 85 T: 57 QT: 329 QTc: 454 Interpretive Statements SINUS TACHYCARDIA ATRIAL PREMATURE COMPLEX INFERIOR INFARCT, AGE INDETERMINATE ANTEROSEPTAL INFARCT, AGE INDETERMINATE ABNORMAL ECG Electronically Signed On 04-26-2021 5:21:10 CDT by Gilberto Head D.O.
[2021-04-25 21:38] LABS: Basophils Absolute Auto 0.1 K/mm3 (0.0-0.1); Basophils Percent Auto 0.4 % (0.2-1.2); Eosinophils Absolute Auto 0.2 K/mm3 (0-0.3); Hematocrit 49.4 % (42.0-52.0); Hemoglobin 16.5 g/dL (14.0-18.0); Immature Granulocyte Absolute 0.06 K/mm3 (0.00-0.031); Immature Granulocyte Percent A 0.3 % (0-0.5); Lymphocytes Absolute Auto 1.14 K/mm3 (0.9-3.2); Lymphocytes Percent Auto 6.5 % (18.3-44.2); Mean Corpuscular HGB Conc 33.4 g/dl (32-36); Mean Corpuscular Hemoglobin 32.7 pg (26-34); Mean Corpuscular Volume 97.8 fl (80-100); Mean Platelet Volume 10.2 fl (7.4-10.4); Monocytes Absolute Auto 1.6 K/mm3 (0.1-0.6); Monocytes Percent Auto 9.1 % (2.6-8.5); Neutrophils Absolute Auto 14.6 K/mm3 (1.3-6.7); Neutrophils Percent Auto 82.7 % (45.5-73.1); Platelet Count Result 154 k/mm3 (150-375); Red Blood Count 5.05 M/mm3 (4.6-6.20); Red Cell Distribution Width 13.3 % (11.5-14.5); White Blood Count 17.7 K/mm3 (4.5-10.0)
--- NOTE | 2021-04-25 21:43 | PC.NURSE ---
Patient in CT.
[2021-04-25 21:58] LABS: Lactic Acid Reflex 2.1 mmol/L (0.7-2.1)
--- NOTE | 2021-04-25 22:13 | ED.GENADULT ---
HPI - General Adult General Chief complaint: Weakness Stated complaint: generalized weakness Time Seen by Provider: 04/25/21 20:44 History of Present Illness HPI narrative: Patient is a 85-year-old gentleman who presents the emergency department with chief complaint of generalized weakness and confusion. Patient's family reports that he was normal around 1230 this afternoon and noticed around 430 or 5 he is having some difficulty with getting his words out as well as overall generalized weakness. Patient had had difficulty walking around with both of his legs he did not have a focal deficit when this episode occurred. The patient does have history of TIAs and has had a carotid endarterectomy Related Data Home Medications Medication Instructions Recorded Confirmed aspirin 81 mg PO DAILY 02/29/20 04/21/21 cholecalciferol (vitamin D3) 1,250 mcg PO DAILY 02/29/20 04/21/21 folic acid 400 mcg tablet 0.4 mg PO DAILY 06/22/20 04/21/21 Allergies Allergy/AdvReac Type Severity Reaction Status Date / Time Penicillins Allergy Severe Swelling Verified 04/25/21 20:47 Review of Systems Review of Systems: A 10 system review of systems was completed on the patient and is negative except for what is stated in the HPI. Nursing and ancillary documentation was reviewed. [facility] Past Medical History Medical History Acute CVA (cerebrovascular accident) Allergic rhinitis Atherosclerotic heart disease of [place] coronary artery with unspecified angina pectoris Carotid artery stenosis with cerebral infarction Cervical radiculopathy due to degenerative joint disease of spine Chronic right SI joint pain CMC arthritis, thumb, degenerative History of stent insertion of renal artery Kidney stones Mixed conductive and sensorineural hearing loss, bilateral Mixed hyperlipidemia Occlusion and stenosis of bilateral carotid arteries Other specific joint derangements of right hip, not elsewhere classified Peripheral arterial disease 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 History of surgical removal of skin lesion Right shoulder Hx of appendectomy Hx of CABG Hx of cholecystectomy Presence of xenogenic heart valve Family History Family History Mother Diabetes mellitus Hypertension Aortic valve replaced Father Heart attack Hypertension Social History Social History Social History: The patient is retired. He could not tell me when he retired from now. 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 His is a durable power business attorney for healthcare. Patient denies any tobacco use. He states he is a social drinker occasionally drinks beer. Denies any marijuana or illicit drugs. He states that he has 3 children. Alcohol intake: former Substance use: never Gender identity (if verbalized by the patient): Male Spiritual care concerns: No Exam Narrative: GENERAL: Well-appearing, well-nourished, and in no acute distress. HEAD: Normocephalic, atraumatic. EYES: PERRLA and EOMI. ENT: Nares clear, no rhinorrhea or epistaxis. Mucous membranes moist. NECK: Supple. CHEST: Clear to auscultation. No respiratory distress. HEART: Regular rate and rhythm. No murmur heard. Normal peripheral pulses. ABDOMEN: Soft, nontender, nondistended, normal active bowel sounds. EXTREMITIES: Normal range of motion. No edema. SKIN: Warm, dry, no rash. NEURO: N
[2021-04-25] MEDS: SODIUM CHLORIDE 0.9% IV 1,000 ML 250 ML IV CONT (22:24)
[2021-04-25] MEDS: SODIUM CHLORIDE 0.9% IV 1,000 ML 999 ML IV CONT (22:50)
[2021-04-25 23:17] LABS: INR 0.9; Partial Thromboplastin Time 24.9 SECONDS (22.3-36.8); Prothrombin Time 12.5 Seconds (11.1-14.7)
[2021-04-25 23:23] LABS: Alanine Aminotransferase 38 U/L (4-50); Alkaline Phosphatase 83 U/L (38-126); Anion Gap 11 mmol/L (8-16); Aspartate Amino Transferase 40 U/L (17-59); Bilirubin,Total 0.6 mg/dL (0.2-1.3); Blood Urea Nitrogen 30 mg/dL (9-20); Calcium 8.7 mg/dL (8.4-10.2); Carbon Dioxide 25 mmol/L (22-30); Chloride 103 mmol/L (98-107); Estimated Glomerular Filt Rate 58; Glucose 181 mg/dL (65-110); Potassium 4.4 mmol/L (3.4-5.0); Sodium 139 mmol/L (137-145)
[2021-04-25 23:33] LABS: Troponin I < 0.012 ng/mL (0.000-0.034)
[2021-04-26] VITALS (21 sets, daily range): BP systolic 101–127; BP diastolic 48–84; PULSE 68–102; RESP 13–22; TEMP 35.9–38; O2SAT 94–100; BMI 29.4
[2021-04-26 00:19] LABS: Add Urine Microscopic? YES; Appearance Urine Clear (Clear); Bilirubin Urine Negative (Negative); Blood Urine Negative (Negative); Color Urine Yellow (Yellow); Glucose Urine UA 3+ mg/dL (Negative); Ketones Urine Negative (Negative); Leukocyte Esterase Ur Negative LEU/UL (Negative); Mucus Urine Rare /lpf; Nitrate Urine Negative (Negative); Protein Urine Negative (Negative); RBC Urine 0-2 /hpf (0-2); Specific Grav Ur 1.025 (1.001-1.035); Squamous Epithelial Cell Urine Rare /hpf (Few); Urobilinogen Urine Negative mg/dL (<2.0); WBC Urine 0-3 /hpf
[2021-04-26 00:36] LABS: Reflex Lactic Acid Yes or No Add Lactic
[2021-04-26 02:02] LABS: Troponin I 0.026 ng/mL (0.000-0.034)
--- NOTE | 2021-04-26 02:16 | ADMGEN ---
This patient, Marco A Metcalf, was admitted to [facility] Surg Room 304-01. Patient/family oriented to hospital policies and general routines including ID bracelet, bed and alarms, visiting hours, pain management, procedures, bathroom and other care routines, personal items, smoking policy, room service/diet, and visiting hours. Information on how to activate the Rapid Response Team has been discussed. Patient/Family are encouraged to report perceived risks to care and to ask questions if they do not understand what they are told or what they should do.
[2021-04-26 02:20] LABS: Estimated Glomerular Filt Rate 53
[2021-04-26 07:37] LABS: Anion Gap 10 mmol/L (8-16); Blood Urea Nitrogen 22 mg/dL (9-20); Calcium 8.3 mg/dL (8.4-10.2); Carbon Dioxide 21 mmol/L (22-30); Chloride 109 mmol/L (98-107); Estimated CRCL calculation 53 ml/min; Estimated Glomerular Filt Rate > 60; Glucose 176 mg/dL (65-110); Potassium 4.7 mmol/L (3.4-5.0); Sodium 140 mmol/L (137-145)
[2021-04-26 08:26] LABS: Hematocrit 48.2 % (42.0-52.0); Hemoglobin 15.6 g/dL (14.0-18.0); Mean Corpuscular HGB Conc 32.4 g/dl (32-36); Mean Corpuscular Hemoglobin 32.7 pg (26-34); Mean Platelet Volume 10.6 fl (7.4-10.4); Platelet Count Result 127 k/mm3 (150-375); Red Blood Count 4.77 M/mm3 (4.6-6.20); Red Cell Distribution Width 13.4 % (11.5-14.5); White Blood Count 19.3 K/mm3 (4.5-10.0)
[2021-04-26 10:06] LABS: Hemoglobin A1C 7.8 % (<5.7)
[2021-04-26] MEDS: ENOXAPARIN 40 MG/0.4 ML SYRINGE SUB-Q (10:36)
[2021-04-26] MEDS: guaiFENesin 12 HR 600 MG TABCR PO ×2 (10:36→21:30)
--- NOTE | 2021-04-26 11:32 | PM.IMHP ---
H&P: HPI History of Present Illness Date/Time: 04/26/21 11:32 Chief Complaint: Generalized weakness Narrative: Date of admission: 04/25/2021 Date of service: 04/26/2021 Marco A Metcalf is an 85-year-old male with a history of CVA, coronary artery disease s/p CABG many years ago, carotid artery disease s/p endarterectomy 1 year ago, hyperlipidemia, renovascular hypertension s/p left renal artery stent placement, type 2 diabetes mellitus, and hyperlipidemia who presented to the emergency department on 04/25/2021 with concerns for confusion and generalized weakness. The patient himself is a poor historian was unable to contribute to his history. Thus, this history has been obtained per review of electronic medical records and conversation with his /healthcare POA, Jennifer. Jennifer states that last night at dinner time he had a poor appetite and did not eat very much. She felt his forehead and thought that he felt a little warm and was not quite acting himself. He felt weak and when he went to the bathroom, she had to assist him to get off of the toilet. On his way back from the bathroom, he was not able to make it to the living room and had to sit down on his seated walker to rest. His felt this was abnormal, therefore summoned EMS. On presentation to the ED, he was febrile at 100.9?, he was tachycardic and tachypneic with additional vital signs stable, white blood cell count was elevated at 17.7, additional CBC and BMP unremarkable, and CXR showed patchy bilateral airspace disease compatible with pneumonia. Head/neck CTA showed no acute intracranial or carotid findings. He has been admitted to the hospitalist service for observation. On my exam, he denies shortness of breath, cough, or chest pain. He is not able to provide any additional information. He does exhibit some confusion but is able to tell me his name and knows he is in the hospital. Patient being admitted for observation. Supervising physician for this history and physical is Dr. Ishmael Sanon. Review of Systems Review of Systems: Limited review of systems given mental status with pertinent positives and negatives as per HPI. Per discussion with , the patient has had memory changes ever since his stroke 1 year ago. He has been less independent with his daily activities and his assist him with bathing, grooming, and meals. He does not drive any longer. He is incontinent of urine and wears depends. She denies recent COVID-19 positive contacts. States patient mostly stays at home and only goes out to go to the grocery store with her, at which time he waits in the car. He completed his vaccinated for COVID in October 2020. Reports overall appetite has been good. No weight changes. [facility] Past Medical History Medical History (Updated 04/26/21 @ 12:02 by Char Bocanegra PA-C) Acute CVA (cerebrovascular accident) Allergic rhinitis Atherosclerotic heart disease of [place] coronary artery with unspecified angina pectoris Carotid artery stenosis with cerebral infarction Cervical radiculopathy due to degenerative joint disease of spine Chronic right SI joint pain CMC arthritis, thumb, degenerative History of stent insertion of renal artery ~1999 Mixed conductive and sensorineural hearing loss, bilateral Mixed hyperlipidemia Occlusion and stenosis of bilateral carotid arteries Other specific joint derangements of right hip, not elsewhere classified Peripheral arterial disease 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
[2021-04-26 11:39] LABS: Glucose Point of Care 170 mg/dl (65-105)
[2021-04-26] MEDS: lisinopriL 10 MG TABLET PO (13:19)
[2021-04-26] MEDS: ATORVASTATIN 40 MG TABLET 80 MG PO (13:20)
[2021-04-26] MEDS: ASPIRIN 81 MG CHEWABLE TABLET PO (13:20)
[2021-04-26] MEDS: CLOPIDOGREL BISULFATE 75 MG TABLET PO (13:20)
[2021-04-26] MEDS: FUROSEMIDE 20 MG TABLET PO (13:20)
[2021-04-26] MEDS: FOLIC ACID 0.4 MG TABLET PO (13:20)
[2021-04-26] MEDS: NEBIVOLOL HCL 5 MG TABLET 10 MG PO (13:20)
[2021-04-26] MEDS: EZETIMIBE 10 MG TABLET PO (13:22)
[2021-04-26 17:05] LABS: Glucose Point of Care 167 mg/dl (65-105)
[2021-04-26 18:39] LABS: SARS-CoV-2 RNA PCR Negative
[2021-04-26 22:31] LABS: Glucose Point of Care 165 mg/dl (65-105)
[2021-04-27 00:05] LABS: Influenza Control Positive
[2021-04-27 06:35] LABS: Hematocrit 42.1 % (42.0-52.0); Hemoglobin 13.8 g/dL (14.0-18.0); Mean Corpuscular HGB Conc 32.8 g/dl (32-36); Mean Corpuscular Hemoglobin 32.5 pg (26-34); Mean Corpuscular Volume 99.3 fl (80-100); Mean Platelet Volume 10.4 fl (7.4-10.4); Platelet Count Result 120 k/mm3 (150-375); Red Blood Count 4.24 M/mm3 (4.6-6.20); Red Cell Distribution Width 13.7 % (11.5-14.5); White Blood Count 10.9 K/mm3 (4.5-10.0)
[2021-04-27 06:53] LABS: Alanine Aminotransferase 32 U/L (4-50); Albumin Level 3.4 g/dL (3.5-5.1); Alkaline Phosphatase 55 U/L (38-126); Anion Gap 6 mmol/L (8-16); Aspartate Amino Transferase 40 U/L (17-59); Bilirubin,Total 0.6 mg/dL (0.2-1.3); Blood Urea Nitrogen 21 mg/dL (9-20); Calcium 8.1 mg/dL (8.4-10.2); Carbon Dioxide 24 mmol/L (22-30); Chloride 109 mmol/L (98-107); Estimated CRCL calculation 53 ml/min; Estimated Glomerular Filt Rate > 60; Glucose 140 mg/dL (65-110); Potassium 4.2 mmol/L (3.4-5.0); Sodium 139 mmol/L (137-145)
[2021-04-27 08:00] VITALS: PULSE 93; RESP 18; O2SAT 95
[2021-04-27] MEDS: ENOXAPARIN 40 MG/0.4 ML SYRINGE SUB-Q (08:21)
[2021-04-27] MEDS: FUROSEMIDE 20 MG TABLET PO (08:22)
[2021-04-27] MEDS: ASPIRIN 81 MG CHEWABLE TABLET PO (08:22)
[2021-04-27] MEDS: EZETIMIBE 10 MG TABLET PO (08:22)
[2021-04-27] MEDS: lisinopriL 10 MG TABLET PO (08:22)
[2021-04-27] MEDS: CLOPIDOGREL BISULFATE 75 MG TABLET PO (08:22)
[2021-04-27] MEDS: NEBIVOLOL HCL 5 MG TABLET 10 MG PO (08:22)
[2021-04-27] MEDS: guaiFENesin 12 HR 600 MG TABCR PO (08:22)
[2021-04-27] MEDS: FOLIC ACID 0.4 MG TABLET PO (08:22)
[2021-04-27] MEDS: ATORVASTATIN 40 MG TABLET 80 MG PO (08:22)
[2021-04-27] MEDS: INSULIN ASPART (*BKC) 100 UNITS/ML SUB-Q ×2 (10:10→12:35)
[2021-04-27 10:17] LABS: Glucose Point of Care 263 mg/dl (65-105)
[2021-04-27 11:29] LABS: Glucose Point of Care 256 mg/dl (65-105)
[2021-04-27 14:00] VITALS: BP 120/61; PULSE 62; RESP 16; TEMP 36.8; O2SAT 97
--- NOTE | 2021-04-27 16:21 | PM.DS ---
DS: Admitting Diagnosis Discharge Date 04/27/2021 Admitting Diagnosis Pneumonia DS: Discharge Diagnosis Discharge Diagnosis (1) Pneumonia: Qualifiers: Laterality: unspecified laterality Lung location: unspecified part of lung Pneumonia type: due to unspecified organism Qualified Code(s): J18.9 - Pneumonia, unspecified organism Code(s): J18.9 - Pneumonia, unspecified organism Status: Acute Assessment and Plan: Evident on CXR at presentation. He maintained adequate oxygenation on room air She with IV ceftriaxone azithromycin. Will continue p.o. azithromycin to complete a 5 day course and p.o. cefdinir to complete a 7 day course. Supportive care provided including bronchodilators, expectorants, antipyretics, and incentive spirometry Urinary Legionella and pneumococcal antigens pending, results will be monitored Blood cultures negative to date, final cultures will be monitored Influenza negative Sputum culture unable to be obtained, nonproductive cough No supplemental O2 was required (2) Sepsis: Code(s): A41.9 - Sepsis, unspecified organism Status: Acute Assessment and Plan: Resolved. Present on admission, supported by fever, tachycardia, tachypnea, and leukocytosis. Source of infection is pneumonia. T-max 100.9?. Remained afebrile >24 hours. Leukocytosis, tachycardia, and tachypnea resolved. Blood cultures negative to date as above. (3) Altered mental status: Code(s): R41.82 - Altered mental status, unspecified Status: Acute Assessment and Plan: Patient presented with increased confusion. Per his , he is typically A&O to self and location at baseline but was acting more confused at home. This was likely due to acute infection. No neurologic deficits noted on exam. Head/neck CTA with no acute intracranial or carotid findings. MRI unable to be performed given his left renal stent, however no concerns for CVA based on clinical picture and physical exam. UA without concerns for infection. He does have underlying dementia. He his mental status improved with IV antibiotics and he was able to answer all questions appropriately. (4) Generalized weakness: Code(s): R53.1 - Weakness Status: Acute Assessment and Plan: Likely multifactorial related to overall physical deconditioning in combination with acute illness. He was evaluated by PT/OT and was able to ambulate with standby assistance using his walker. He was able to walk 12 ft. Home health was arranged for continued therapy. (5) Type 2 diabetes mellitus without complications: Qualifiers: Diabetes mellitus correctional case manager insulin use: unspecified detention insulin use status Qualified Code(s): E11.9 - Type 2 diabetes mellitus without complications Code(s): E11.9 - Type 2 diabetes mellitus without complications Status: Chronic Assessment and Plan: A1c is 7.8. Blood sugars monitored during hospital stay and covered with sliding scale insulin. Continue home med Jardiance (6) COVID-19 ruled out by laboratory testing: Code(s): Z20.822 - Contact with and (suspected) exposure to COVID-19 Status: Acute Assessment and Plan: Negative test on 04/25/2021. No COVID exposures. Completed Pfizer vaccination October 2020. DS: Summary Hospital Course Hospital Course: Date of admission: 04/25/2021 Date of service: 04/27/2021 Marco A Metcalf is an 85-year-old male with a history of CVA, coronary artery disease s/p CABG many years ago, carotid artery disease s/p endarterectomy 1 year ago, hyperlipidemia, renovascular hypertension s/p left renal artery stent placement, type 2 diabetes mellitus, and hyperlipidemia who presented to the emergency department on 04/25/2021 with concerns for confusion and generalized weakness. On presentation to the ED, he was febrile at 100.9?, he was tachycardic and tachypneic with additional vital sign
[2021-04-27 16:41] LABS: Glucose Point of Care 159 mg/dl (65-105)
[2021-04-27] MEDS: AZITHROMYCIN 250 MG TABLET 500 MG PO (17:06)
[2021-04-30 00:20] LABS: Pneumococcal Antigen Urine Not Detected (Not Detected)
[2021-04-30 20:25] LABS: Legionella pneumophila Ag Ur Not Detected (Not Detected)
== END 2021-04-27 18:15 | disposition home health service (06) ==
LOC: ANHED 22:16 → ANH3MEDSUR 04-26 07:13
PROVIDERS: Physician Assistant; Admitting Provider Internal Medicine; Emergency Provider Emergency Medicine; PCP Family Medicine; Visit Provider Internal Medicine
DX: J18.9 Pneumonia, unspecified organism (principal); A41.9 Sepsis, unspecified organism; R41.82 Altered mental status, unspecified; Z20.822 Contact with and (suspected) exposure to COVID-19; R53.1 Weakness; I25.10 Atherosclerotic heart disease of native coronary artery without angina pectoris; M47.22 Other spondylosis with radiculopathy, cervical region; E78.2 Mixed hyperlipidemia; E11.51 Type 2 diabetes mellitus with diabetic peripheral angiopathy without gangrene; I15.0 Renovascular hypertension; M48.061 Spinal stenosis, lumbar region without neurogenic claudication; Z79.82 Long term (current) use of aspirin; Z86.73 Personal history of transient ischemic attack (TIA), and cerebral infarction without residual deficits; Z95.1 Presence of aortocoronary bypass graft; Z95.3 Presence of xenogenic heart valve; Z66 Do not resuscitate; Z79.02 Long term (current) use of antithrombotics/antiplatelets; Z79.84 Long term (current) use of oral hypoglycemic drugs
CPT/HCPCS: 36415; 51701; 70496; 70498; 71045; 80048; 80053; 81001; 82948; 83036; 83605; 83735; 84484; 85025; 85027; 85610; 85730; 87040; 87077; 87186; 87449; 87804; 87899; 93005; 96365; 96366; 96367; 96372; 96376; 97116; 97161; 97165; 97530; 99285; A9270; C9803; G0378; J0131; J0456; J0696; J1650; J1815; J7030; Q9967; U0003; U0005

== ENCOUNTER → 2021-05-20 12:18 | Outpatient (REF) | payer MEDICARE, SELFPAY | LOC: ANHLAB 12:18 | PROVIDERS: PCP Family Medicine; Visit Provider Nurse Practitioner | DX: C44.612 Basal cell carcinoma of skin of right upper limb, including shoulder (principal) | CPT/HCPCS: 88305 ==

== ENCOUNTER → 2021-07-12 10:05 | Outpatient (REF) | payer MEDICARE, SELFPAY | LOC: ANHLAB 10:05 | PROVIDERS: PCP Family Medicine; Visit Provider Nurse Practitioner | DX: C44.612 Basal cell carcinoma of skin of right upper limb, including shoulder (principal) | CPT/HCPCS: 88305; 88331; 88332 ==

== ENCOUNTER 2023-04-13 08:16 | Outpatient (CLI) | payer MEDICARE, SELFPAY ==
[2023-04-13 11:20] LABS: Alanine Aminotransferase 44 U/L (6-50); Albumin Level 4.1 g/dL (3.5-5.1); Alkaline Phosphatase 80 U/L (38-126); Anion Gap 5 mmol/L (8-16); Aspartate Amino Transferase 92 U/L (17-59); Bilirubin,Total 1.1 mg/dL (0.2-1.3); Blood Urea Nitrogen 28 mg/dL (9-20); Carbon Dioxide 33 mmol/L (22-30); Chloride 104 mmol/L (98-107); Cholesterol 130 mg/dL (0-200); Estimated Glomerular Filt Rate > 60; Glucose 121 mg/dL (65-110); HDL Direct 36 mg/dL; Potassium 4.3 mmol/L (3.4-5.0); Sodium 142 mmol/L (137-145); Triglycerides 158 mg/dL (<150)
[2023-04-13 11:31] LABS: LDL Cholesterol Direct 64 mg/dL
[2023-04-13 12:00] LABS: Hemoglobin A1C 6.8 % (<5.7)
[2023-04-13 13:06] LABS: MALB Creatinine Ratio 10.5 mg/g (0-30); Microalbumin Urine Random 8.7 mg/L (0-16.7)
== END 2023-04-13 08:17 | disposition home or self-care (01) ==
PROVIDERS: PCP Family Medicine; Visit Provider Family Medicine
DX: E11.9 Type 2 diabetes mellitus without complications (principal)
CPT/HCPCS: 36415; 80053; 80061; 82043; 83036

== ENCOUNTER 2023-06-18 11:12 | Emergency (ER) | payer MEDICARE, SELFPAY ==
--- NOTE | ~2023-06-18 | CT_ITS ---
EXAMINATION: CT brain wo con INDICATION: Headache COMPARISON: 04/25/2021 TECHNIQUE: Standard unenhanced head CT. The dose-length product (DLP) was 832.33 mGy-cm. The mA was a djusted according to patient size. Iterative reconstruction technique was employed. FINDINGS: No acute intraparenchymal hemorrhage. No evidence of mass lesion. No evidence of acute infa rction. There is an old infarct involving the left basal ganglia and internal capsule. There is mild periventricular and subcortical hypodensity probably related to small vessel ischemic disease. There is mild prominence of the sulci and ventricles related to cerebral atrophy. Intracranial calcified ce rebral atherosclerosis is noted. No extra-axial collections. No mass effect or midline shift. Changes in the globes are likely from ocular lens surgery. The visualized sinuses and mastoid air cells are well aerated. IMPRESSION: 1. Areas of prior infarction without acute intracranial abnormality. 2. Age related findings. Reviewed, dictated and finalized at location F. ET PREPARATION OPERATOR
[2023-06-18 11:13] VITALS: BP 141/73; PULSE 86; RESP 21; TEMP 36.2; O2SAT 97
[2023-06-18 12:26] LABS: Basophils Percent Auto 0.4 % (0.2-1.2); Eosinophils Absolute Auto 0.1 K/mm3 (0-0.3); Eosinophils Percent Auto 1.4 % (0-4.4); Hematocrit 46.9 % (42.0-52.0); Hemoglobin 15.1 g/dL (14.0-18.0); Immature Granulocyte Absolute 0.04 K/mm3 (0.00-0.031); Immature Granulocyte Percent A 0.4 % (0-0.5); Lymphocytes Percent Auto 17.8 % (18.3-44.2); Mean Corpuscular HGB Conc 32.2 g/dl (32-36); Mean Corpuscular Volume 99.4 fl (80-100); Mean Platelet Volume 10.4 fl (7.4-10.4); Monocytes Absolute Auto 1.1 K/mm3 (0.1-0.6); Monocytes Percent Auto 10.9 % (2.6-8.5); Neutrophils Percent Auto 69.1 % (45.5-73.1); Platelet Count Result 159 k/mm3 (150-375); Red Blood Count 4.72 M/mm3 (4.6-6.20); Red Cell Distribution Width 13.6 % (11.5-14.5); White Blood Count 10.1 K/mm3 (4.5-10.0)
[2023-06-18] MEDS: SODIUM CHLORIDE 0.9% IV 500 ML 999 ML IV CONT (12:33)
[2023-06-18] MEDS: KETOROLAC 15 MG/ML VIAL (*BKC) IV PUSH (12:34)
[2023-06-18 12:36] LABS: Anion Gap 8 mmol/L (8-16); Blood Urea Nitrogen 26 mg/dL (9-20); Calcium 8.9 mg/dL (8.4-10.2); Carbon Dioxide 30 mmol/L (22-30); Chloride 105 mmol/L (98-107); Estimated CRCL calculation 58 ml/min; Estimated Glomerular Filt Rate > 60; Glucose 218 mg/dL (65-110); Magnesium 2.6 mg/dL (1.6-2.3); Potassium 4.2 mmol/L (3.4-5.0); Sodium 143 mmol/L (137-145)
[2023-06-18] MEDS: PROCHLORPERAZINE EDISYLATE 10 MG/2 ML VIAL IV PUSH (12:36)
[2023-06-18 12:37] VITALS: PULSE 77
[2023-06-18 12:38] VITALS: BP 146/67; PULSE 77; RESP 16; O2SAT 97
--- NOTE | 2023-06-18 12:40 | ED.HA ---
HPI - Headache General Chief Complaint: Weakness Stated Complaint: [place] and increased lethargy Time Seen by Provider: 06/18/23 11:15 Source: patient and family ( and son) Limitations: dementia History of Present Illness HPI Narrative: This is an 87 year old with Hx CVA and carotid artery surgery and dementia who presents from home with report of a headache starting last night. He states it is bilateral. Denies any chest pain, abdominal pain, changes in appetite, changes in bowel/bladder, vision changes. Denies photophobia or phonophobia. and son arrive shortly after and provide additional history. No one else in house with headache. Deny any trauma. Patient did recently receive additional covid shot, flu shot, and pneumonia shot the other day. Medication list also include clopidogrel but no other anticoagulation. For this reason, does not take additional NSAIDs. He does also take 400mg magnesium. Related Data Home Medications Medication Instructions Recorded Confirmed aspirin 81 mg chewable tablet 81 mg PO DAILY 02/29/20 04/11/23 cholecalciferol (vitamin D3) 1,250 1,250 mcg PO DAILY 02/29/20 04/11/23 mcg (50,000 unit) capsule folic acid 400 mcg tablet 0.4 mg PO DAILY 06/22/20 04/11/23 Allergies Allergy/AdvReac Type Severity Reaction Status Date / Time Penicillins Allergy Severe Swelling Verified 05/24/23 14:05 [facility] Past Medical History Medical History Acute CVA (cerebrovascular accident) Allergic rhinitis Altered mental status Ambulatory dysfunction Atherosclerotic heart disease of [place] coronary artery with unspecified angina pectoris Basal cell carcinoma (BCC) of right shoulder Carotid artery stenosis with cerebral infarction Cervical radiculopathy due to degenerative joint disease of spine Chronic right SI joint pain CMC arthritis, thumb, degenerative Encounter for administration of vaccine Expressive aphasia Generalized weakness History of stent insertion of renal artery ~1999 Mixed conductive and sensorineural hearing loss, bilateral Mixed hyperlipidemia Occlusion and stenosis of bilateral carotid arteries OM (onychomycosis) Other specific joint derangements of right hip, not elsewhere classified Peripheral arterial disease 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 Pneumonia Pneumonia Primary cancer of skin of shoulder Primary osteoarthritis of both hands Recent cerebrovascular accident (CVA) Renovascular hypertension Sepsis Spinal stenosis of lumbar region at multiple levels Type 2 diabetes mellitus without complications Vascular dementia Vision changes Wrist arthritis Surgical History Surgical History History of back surgery History of carotid endarterectomy May 2020 History of left hip replacement History of left-sided carotid endarterectomy 10.24.20 History of surgical removal of skin lesion Right shoulder Hx of appendectomy Hx of CABG 2001 Hx of cholecystectomy 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 Metcalf lives at home with his . His adult daughter and son-in-law are currently staying with him as well. His PCP is Dr. Mireya Guido. His is his durable power of banking attorney for health care. He is a full code. He is retired from [employer]. Smoking status: Never smoker Alcohol intake: current Alcohol use details: Approximately 1 beer/week Substance use: never Substance use type: does not use Lack of Transportation: No Lack of Food: Never True Current Housing: I Have Housing Concerned About Future Housing: No Difficulty
[2023-06-18] MEDS: ACETAMINOPHEN 500 MG TABLET 1000 MG PO (13:13)
[2023-06-18 13:15] VITALS: BP 124/67; PULSE 75; RESP 20; O2SAT 95
[2023-06-18 14:58] VITALS: BP 123/63; PULSE 67; RESP 14; O2SAT 98
== END 2023-06-18 15:00 | disposition home or self-care (01) ==
PROVIDERS: Emergency Provider Student in an Organized Health Care Education/Training Program; PCP Family Medicine
DX: R51.9 Headache, unspecified (principal); E83.41 Hypermagnesemia; F01.50 Vascular dementia, unspecified severity, without behavioral disturbance, psychotic disturbance, mood disturbance, and anxiety; I25.10 Atherosclerotic heart disease of native coronary artery without angina pectoris; E78.2 Mixed hyperlipidemia; E11.9 Type 2 diabetes mellitus without complications; Z86.73 Personal history of transient ischemic attack (TIA), and cerebral infarction without residual deficits
CPT/HCPCS: 36415; 70450; 80048; 83735; 85025; 96361; 96374; 96375; 99284; A9270; J0780; J1885; J7040

== ENCOUNTER 2023-06-20 12:38 | Outpatient (CLI) | payer MEDICARE, SELFPAY ==
[2023-06-20 13:18] LABS: Basophils Absolute Auto 0.1 K/mm3 (0.0-0.1); Basophils Percent Auto 0.7 % (0.2-1.2); Eosinophils Absolute Auto 0.4 K/mm3 (0-0.3); Eosinophils Percent Auto 4.6 % (0-4.4); Hematocrit 43.5 % (42.0-52.0); Hemoglobin 13.8 g/dL (14.0-18.0); Immature Granulocyte Absolute 0.04 K/mm3 (0.00-0.031); Immature Granulocyte Percent A 0.5 % (0-0.5); Lymphocytes Absolute Auto 1.85 K/mm3 (0.9-3.2); Lymphocytes Percent Auto 23.1 % (18.3-44.2); Mean Corpuscular HGB Conc 31.7 g/dl (32-36); Mean Corpuscular Hemoglobin 31.7 pg (26-34); Mean Corpuscular Volume 99.8 fl (80-100); Monocytes Absolute Auto 0.9 K/mm3 (0.1-0.6); Monocytes Percent Auto 11.7 % (2.6-8.5); Neutrophils Absolute Auto 4.8 K/mm3 (1.3-6.7); Neutrophils Percent Auto 59.4 % (45.5-73.1); Platelet Count Result 178 k/mm3 (150-375); Red Blood Count 4.36 M/mm3 (4.6-6.20); Red Cell Distribution Width 13.4 % (11.5-14.5)
[2023-06-20 13:18] LABS: Magnesium 2.4 mg/dL (1.6-2.3)
[2023-06-20 14:38] LABS: Erythrocyte Sedimentation Rate 58 mm/hr (0-20)
[2023-06-20 15:01] LABS: Free T4 Free Thyroxine Reflex 1.25 ng/dL (0.78-2.19)
== END 2023-06-20 12:39 | disposition home or self-care (01) ==
PROVIDERS: PCP Family Medicine; Visit Provider Physician Assistant
DX: R53.83 Other fatigue (principal)
CPT/HCPCS: 36415; 83735; 84439; 84443; 84480; 85025; 85652

== ENCOUNTER 2023-06-29 09:47 | Outpatient (CLI) | payer MEDICARE, SELFPAY ==
[2023-06-29 19:29] LABS: Basophils Absolute Auto 0.1 K/mm3 (0.0-0.1); Basophils Percent Auto 0.9 % (0.2-1.2); Eosinophils Absolute Auto 0.4 K/mm3 (0-0.3); Eosinophils Percent Auto 4.4 % (0-4.4); Hematocrit 45.5 % (42.0-52.0); Hemoglobin 14.5 g/dL (14.0-18.0); Immature Granulocyte Absolute 0.03 K/mm3 (0.00-0.031); Immature Granulocyte Percent A 0.4 % (0-0.5); Lymphocytes Absolute Auto 1.63 K/mm3 (0.9-3.2); Lymphocytes Percent Auto 20.3 % (18.3-44.2); Mean Corpuscular HGB Conc 31.9 g/dl (32-36); Mean Corpuscular Hemoglobin 31.7 pg (26-34); Mean Corpuscular Volume 99.6 fl (80-100); Mean Platelet Volume 10.3 fl (7.4-10.4); Monocytes Absolute Auto 0.7 K/mm3 (0.1-0.6); Monocytes Percent Auto 8.8 % (2.6-8.5); Neutrophils Absolute Auto 5.3 K/mm3 (1.3-6.7); Neutrophils Percent Auto 65.2 % (45.5-73.1); Platelet Count Result 201 k/mm3 (150-375); Red Blood Count 4.57 M/mm3 (4.6-6.20); Red Cell Distribution Width 13.3 % (11.5-14.5)
== END 2023-06-29 09:48 | disposition home or self-care (01) ==
LOC: ANHGOSHLAB 09:49
PROVIDERS: PCP Family Medicine; Visit Provider Family Medicine
DX: R42 Dizziness and giddiness (principal); R53.83 Other fatigue
CPT/HCPCS: 36415; 85025

== ENCOUNTER 2023-09-04 10:07 | Observation (INO) | payer MEDICARE, SELFPAY ==
[2023-09-04] VITALS (7 sets, daily range): BP systolic 133–152; BP diastolic 63–79; PULSE 73–89; RESP 15–20; TEMP 36.4–36.7; O2SAT 94–100
--- NOTE | ~2023-09-04 | XR_ITS ---
Portable chest x-ray Comparison: 04/25/2021 Clinical History: Shortness of breath Findings: Lungs are clear, without focal consolidation or pleural effusion. Cardiomediastinal silho uette is stable. Bones and soft tissues are unremarkable. Impression: Clear lungs. Reviewed, dictated and finalized at location . TURE TESTER Impression: Clear lungs.
--- NOTE | ~2023-09-04 | XR_ITS ---
XR chest 1V portable 09/07/2023 13:46 Indication: Left-sided chest discomfort Procedure: AP portable chest Comparison: Comparison to multiple prior studies sequentially, with oldest reviewed study dated 10/11. Findings: Status post median sternotomy for CABG. Elevated right diaphragm. Mild interstitial edema. Stable cardiomediastinal silhouette. No significant effusion or pneumothorax. No acute osseous abnorm ality. Impression: 1: Mild interstitial edema. Reviewed, dictated and finalized at location L. RPROOFER HELPER Impression: 1: Mild interstitial edema.
--- NOTE | ~2023-09-04 | CT_ITS ---
CT head without contrast Indication: Status post fall COMPARISON: 06/18/2023 Technique: Serial scans were obtained through the brain without the administration of contrast. Dose reduction technique was used on this scan by utilizing automated exposure control and iterative recon struction technique. The dose-length product (DLP) was 983.67 mGy-cm. Findings: There is no evidence of intracranial hemorrhage, mass lesion, or acute infarct. Chronic lac unar infarct noted in the left basal ganglia. The ventricles and subarachnoid spaces are dilated, con sistent with moderate atrophy. Low attenuation regions are seen within the periventricular white mat ter bilaterally, likely representing changes from chronic microvascular ischemic disease. There is no evidence of edema, mass effect or midline shift. The visualized paranasal sinuses and mastoid air cells are clear. Impression: No intracranial hemorrhage, mass, or acute infarct. Chronic left basal ganglia lacunar infarct. Atrophy and chronic white matter changes, as above. Reviewed, dictated and finalized at [facility]. CTOR SPORTS Impression: No intracranial hemorrhage, mass, or acute infarct. Chronic left basal ganglia lacunar infarct. Atrophy and chronic white matter changes, as above.
[2023-09-04 11:05] LABS: Influenza A QL RT-PCR Positive (Negative); Influenza B QL RT-PCR Negative (Negative); RSV RNA, RT-PCR Negative (Negative); SARS-CoV-2 RNA PCR Negative (Negative)
--- NOTE | 2023-09-04 12:50 | ED.GENADULT ---
HPI - General Adult General Chief complaint: Unspecified Stated complaint: uri Time Seen by Provider: 09/04/23 10:14 88-year-old male present to the emergency department for evaluation for cough and body aches. Patient's was recently diagnosed with influenza A. Patient states over last few days had worsening symptoms. Patient denies any current chest pain or shortness of breath. Patient states he does feel strong enough to take care for self at home. Related Data Home Medications Medication Instructions Recorded Confirmed aspirin 81 mg chewable tablet 81 mg PO DAILY 02/29/20 09/04/23 cholecalciferol (vitamin D3) 1,250 1,250 mcg PO DAILY 02/29/20 09/04/23 mcg (50,000 unit) capsule folic acid 400 mcg tablet 400 mcg PO DAILY 06/22/20 09/04/23 atorvastatin 40 mg tablet 40 mg PO DAILY 09/04/23 09/04/23 clopidogrel 75 mg tablet 75 mg PO DAILY 09/04/23 09/04/23 ezetimibe 10 mg tablet 10 mg PO DAILY 09/04/23 09/04/23 furosemide 40 mg tablet 40 mg PO DAILY 09/04/23 09/04/23 lisinopril 10 mg tablet 10 mg PO DAILY 09/04/23 09/04/23 Allergies Allergy/AdvReac Type Severity Reaction Status Date / Time Penicillins Allergy Severe Swelling Verified 06/29/23 09:01 Review of Systems Review of Systems: All systems reviewed & are unremarkable except as noted in HPI and below PMFSH Past Medical History Medical History Acute CVA (cerebrovascular accident) Allergic rhinitis Altered mental status Ambulatory dysfunction Atherosclerotic heart disease of [place] coronary artery with unspecified angina pectoris Basal cell carcinoma (BCC) of right shoulder Carotid artery stenosis with cerebral infarction Cervical radiculopathy due to degenerative joint disease of spine Chronic right SI joint pain CMC arthritis, thumb, degenerative Encounter for administration of vaccine Expressive aphasia Generalized weakness History of stent insertion of renal artery ~1999 Mixed conductive and sensorineural hearing loss, bilateral Mixed hyperlipidemia Occlusion and stenosis of bilateral carotid arteries OM (onychomycosis) Other specific joint derangements of right hip, not elsewhere classified Peripheral arterial disease 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 Pneumonia Pneumonia Primary cancer of skin of shoulder Primary osteoarthritis of both hands Recent cerebrovascular accident (CVA) Renovascular hypertension Sepsis Spinal stenosis of lumbar region at multiple levels Type 2 diabetes mellitus without complications Vascular dementia Vision changes Wrist arthritis Surgical History Surgical History History of back surgery History of carotid endarterectomy May 2020 History of left hip replacement History of left-sided carotid endarterectomy 10.24.20 History of surgical removal of skin lesion Right shoulder Hx of appendectomy Hx of CABG 2001 Hx of cholecystectomy 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 Metcalf lives at home with his . His adult daughter and son-in-law are currently staying with him as well. His PCP is Dr. Mireya Guido. His is his durable power of litigation attorney for health care. He is a full code. He is retired from [employer]. Smoking status: Never smoker Alcohol intake: current Alcohol use details: Approximately 1 beer/week Substance use: never Substance use type: does not use Do You Feel Safe in your Home?: Yes Lack of Transportation: No Lack of Food: Never True Current Housing: I Have Housing Concerned About Future Housing: No Difficulty Paying Gas/El
--- NOTE | 2023-09-04 13:21 | ECG_ITS ---
Measurements Intervals [place] Rate: 76 P: 57 AR: 290 QRS: -68 QRSD: 98 T: 16 QT: 381 QTc: 430 Interpretive Statements SINUS RHYTHM WITH FIRST DEGREE AV BLOCK INFERIOR INFARCT, AGE INDETERMINATE ANTEROSEPTAL INFARCT, AGE INDETERMINATE BASELINE ARTIFACT- I, II, III, AVR, AVL, AVF, V1-V2 ABNORMAL ECG COMPARED TO ECG 04/25/2021 20:46:39 SINUS RHYTHM NOW PRESENT FIRST DEGREE AV BLOCK NOW PRESENT Electronically Signed On 09-04-2023 14:43:24 TRAFFIC CONTROL SUPERVISOR by Gilberto Head D.O.
[2023-09-04 14:43] LABS: Basophils Absolute Auto 0.1 K/mm3 (0.0-0.1); Basophils Percent Auto 0.6 % (0.2-1.2); Eosinophils Absolute Auto 0.1 K/mm3 (0-0.3); Eosinophils Percent Auto 1.1 % (0-4.4); Hematocrit 42.8 % (42.0-52.0); Hemoglobin 13.6 g/dL (14.0-18.0); Immature Granulocyte Absolute 0.02 K/mm3 (0.00-0.031); Immature Granulocyte Percent A 0.3 % (0-0.5); Lymphocytes Absolute Auto 0.68 K/mm3 (0.9-3.2); Lymphocytes Percent Auto 8.6 % (18.3-44.2); Mean Corpuscular HGB Conc 31.8 g/dl (32-36); Mean Corpuscular Hemoglobin 31.9 pg (26-34); Mean Corpuscular Volume 100.5 fl (80-100); Mean Platelet Volume 10.4 fl (7.4-10.4); Monocytes Absolute Auto 1.1 K/mm3 (0.1-0.6); Monocytes Percent Auto 14.2 % (2.6-8.5); Neutrophils Percent Auto 75.2 % (45.5-73.1); Platelet Count Result 143 k/mm3 (150-375); Red Blood Count 4.26 M/mm3 (4.6-6.20); Red Cell Distribution Width 13.6 % (11.5-14.5); White Blood Count 7.9 K/mm3 (4.5-10.0)
[2023-09-04 14:44] LABS: Appearance Urine Clear (Clear); Bilirubin Urine Negative (Negative); Blood Urine Negative (Negative); Color Urine Yellow (Yellow); Glucose Urine UA 3+ mg/dL (Negative); Ketones Urine Trace mg/dL (Negative); Leukocyte Esterase Ur Negative LEU/UL (Negative); Nitrate Urine Negative (Negative); Protein Urine Negative (Negative); Specific Grav Ur 1.025 (1.001-1.035); Urobilinogen Urine 0.2 mg/dL (<2.0)
[2023-09-04 14:47] LABS: Add Urine Microscopic? NO
[2023-09-04 15:03] LABS: Alanine Aminotransferase 44 U/L (6-50); Albumin Level 3.7 g/dL (3.5-5.1); Alkaline Phosphatase 83 U/L (38-126); Anion Gap 9 mmol/L (8-16); Aspartate Amino Transferase 48 U/L (17-59); Blood Urea Nitrogen 17 mg/dL (9-20); Calcium 8.4 mg/dL (8.4-10.2); Carbon Dioxide 22 mmol/L (22-30); Chloride 111 mmol/L (98-107); Estimated CRCL calculation 65 ml/min; Estimated Glomerular Filt Rate > 60; Glucose 90 mg/dL (65-110); Potassium 3.9 mmol/L (3.4-5.0); Sodium 142 mmol/L (137-145)
--- NOTE | 2023-09-04 18:43 | PM.IMHP ---
H&P: HPI History of Present Illness Date/Time: 09/04/23 18:00 Chief Complaint: Cough, congestion, weakness. Narrative: This is an 88-year-old male with history of stroke, dementia, coronary artery disease, hypertension, hyperlipidemia, type 2 diabetes mellitus, and other comorbidities who presented to the emergency department via EMS for evaluation of cough, congestion, and weakness. He is not able to provide an accurate history and some of the following history is supplemented via a review of his EMR as well as information provided by family. He has not felt well for several days with a cough, congestion, and increasing weakness and is my understanding that he had a fall last night though no specifics were provided and there were no reports of injuries. His recently tested positive for influenza and he in fact tested positive for the same today. Initial plans were for discharge home however he was very unsteady on his feet with ambulatory challenge and family did not feel comfortable taking him home and he is being admitted in this setting. At the time my evaluation he is resting comfortably and complains of generalized malaise and body aches. He has no current complaints and he denies known fever, sore throat, chest pain, shortness a breath, abdominal pain, nausea, vomiting, and diarrhea. Review of Systems Review of Systems: Unable to assess accurately given his dementia. [facility] Past Medical History Medical History (Updated 09/04/23 @ 22:49 by Olga Mohan PA-C) Arthritis Basal cell carcinoma (BCC) of right shoulder Carotid artery stenosis Cerebrovascular accident Coronary artery disease Dementia Hypertension Mixed conductive and sensorineural hearing loss, bilateral Mixed hyperlipidemia Peripheral arterial disease Phrenic nerve palsy With right-sided elevated hemidiaphragm. Spinal stenosis of lumbar region at multiple levels Type 2 diabetes mellitus Vascular dementia Surgical History Surgical History (Updated 09/04/23 @ 22:44 by Olga Mohan PA-C) History of appendectomy History of back surgery History of bilateral cataract extraction History of carpal tunnel release History of cholecystectomy History of coronary artery bypass graft (2001) History of heart valve replacement History of left hip replacement History of left-sided carotid endarterectomy (05/2020) History of stent insertion of renal artery (1999) Family History Family History Mother Diabetes mellitus Hypertension Aortic valve replaced Father Heart attack Hypertension Social History Social History (Updated 09/04/23 @ 22:44 by Olga Mohan PA-C) Social History: Surrogate medical decision maker: Jennifer Metcalf, spouse. Code status: Do not resuscitate. Smoking status: Never smoker Alcohol intake: current Alcohol use details: Approximately 1 beer/week Substance use: never Substance use type: does not use Do You Feel Safe in your Home?: Yes Lack of Transportation: No Lack of Food: Never True Current Housing: I Have Housing Concerned About Future Housing: No Difficulty Paying Gas/Electric Bills: No Difficulty Paying for Meds: No Currently Unemployed: No Education: High School Diploma/GED Difficulty w/ Childcare or Family Care: No Living arrangements: with family Additional living arrangements comments: Lives with spouse. Occupation/Education: retired Additional occupation/education comments: Retired from [employer]. Spiritual care concerns: No Meds Home Medications and Allergies Home Medications Medication Instructions Recorded Confirmed Type aspirin 81 mg chewable tablet 81 mg PO DAILY 02/29/20 09/04/23 History cholecalciferol (vitamin D3) 1,250 1,250 mcg PO DAILY 02/29/20 09/04/23 History mcg (50,000 unit) capsule folic acid 400 mcg tablet 400 mcg PO DAILY 06/22/20 09/04/23 History potassium chloride 10
[2023-09-04 21:45] LABS: Glucose Point of Care 123 mg/dl (65-105)
[2023-09-05 05:53] VITALS: BP 127/83; PULSE 74; RESP 17; TEMP 36.3; O2SAT 94
[2023-09-05 06:16] LABS: Hematocrit 43.6 % (42.0-52.0); Hemoglobin 13.7 g/dL (14.0-18.0); Immature Platelet Fraction Pct 3.6 % (0.9-11.2); Mean Corpuscular HGB Conc 31.4 g/dl (32-36); Mean Corpuscular Hemoglobin 31.4 pg (26-34); Mean Platelet Volume 10.1 fl (7.4-10.4); Platelet Count Result 143 k/mm3 (150-375); Red Blood Count 4.36 M/mm3 (4.6-6.20); Red Cell Distribution Width 13.8 % (11.5-14.5); White Blood Count 6.3 K/mm3 (4.5-10.0)
[2023-09-05 08:02] LABS: Glucose Point of Care 99 mg/dl (65-105)
[2023-09-05] MEDS: EZETIMIBE 10 MG TABLET PO (08:46)
[2023-09-05 08:47] VITALS: PULSE 74
[2023-09-05] MEDS: POTASSIUM CHLORIDE 10 MEQ ER TABLET PO (08:47)
[2023-09-05] MEDS: ASPIRIN 81 MG CHEWABLE TABLET PO (08:47)
[2023-09-05] MEDS: lisinopriL 10 MG TABLET PO (08:47)
[2023-09-05] MEDS: NEBIVOLOL HCL 5 MG TABLET 10 MG PO (08:47)
[2023-09-05] MEDS: FUROSEMIDE 40 MG TABLET PO (08:47)
[2023-09-05] MEDS: OSELTAMIVIR PHOSPHATE 75 MG CAPSULE PO (08:47)
[2023-09-05] MEDS: CLOPIDOGREL BISULFATE 75 MG TABLET PO (08:47)
[2023-09-05] MEDS: FOLIC ACID 0.4 MG TABLET PO (08:47)
[2023-09-05] MEDS: ATORVASTATIN 40 MG TABLET PO (08:49)
[2023-09-05 09:47] LABS: Anion Gap 7 mmol/L (8-16); Blood Urea Nitrogen 16 mg/dL (9-20); Calcium 8.4 mg/dL (8.4-10.2); Carbon Dioxide 26 mmol/L (22-30); Chloride 110 mmol/L (98-107); Estimated CRCL calculation 57 ml/min; Estimated Glomerular Filt Rate > 60; Glucose 109 mg/dL (65-110); Magnesium 2.3 mg/dL (1.6-2.3); Potassium 3.9 mmol/L (3.4-5.0); Sodium 143 mmol/L (137-145)
[2023-09-05 11:35] LABS: Glucose Point of Care 165 mg/dl (65-105)
--- NOTE | 2023-09-05 12:42 | PHAR ---
The patient's home med of Empagliflozin-Linagliptin [Glyxambi] 10-5 mg tab has been verified.
[2023-09-05 14:00] VITALS: BP 124/54; PULSE 65; RESP 16; TEMP 36.8; O2SAT 96
--- NOTE | 2023-09-05 14:48 | PM.IMPN ---
Progress Note: A&P Assessment and Plan (1) Influenza A: Code(s): J10.1 - Influenza due to other identified influenza virus with other respiratory manifestations Status: Acute Assessment and Plan: Tamiflu (2) Generalized weakness: Code(s): R53.1 - Weakness Status: Acute (3) Type 2 diabetes mellitus: Code(s): E11.9 - Type 2 diabetes mellitus without complications Status: Acute (4) Coronary artery disease: Code(s): I25.10 - Atherosclerotic heart disease of [place] coronary artery without angina pectoris Status: Acute (5) Hypertension: Code(s): I10 - Essential (primary) hypertension Status: Acute (6) Peripheral arterial disease: Code(s): I73.9 - Peripheral vascular disease, unspecified Status: Acute (7) Dementia: Code(s): F03.90 - Unspecified dementia, unspecified severity, without behavioral disturbance, psychotic disturbance, mood disturbance, and anxiety Status: Acute Plan The patient presented to the emergency department for evaluation of cough, congestion, and weakness for the last several days as detailed in HPI. Labs, imaging, EKG, and all reports were personally reviewed. He tested positive for influenza A and he has been started on Tamiflu. Continue supportive care with analgesics and antiemetics as needed. He is on isolation per protocol. Initiate fall precautions as he is quite unsteady on his feet due to the virus. Initiate sliding scale insulin, Accu-Cheks, and hypoglycemic protocol. No acute issues with regards to his coronary artery disease or peripheral arterial disease. Continue dual anti-platelet therapy and statin. The rest of his home medications will be reviewed and resumed as appropriate. Time Spent With Patient Time with patient: 25 - 35 minutes Subjective Date/time seen: 09/05/23 14:48 Interval history: Seen and examined; Tired-looking; poorly interactive due to dementia Review of Systems Review of Systems: Unable to assess accurately given his dementia. Exam Narrative: General: Mildly ill-appearing elderly gentleman supine in bed. Weight: 104.8 kg. BMI: 31.3. HEENT: PERRL, EOMI. Hard of hearing. Sclera anicteric. Conjunctiva mildly injected. Tacky mucous membranes. Neck: Supple. Respiratory: Lungs are clear to auscultation bilaterally. Cardiovascular: Regular rate and rhythm with S1-S2. Systolic murmur at the upper sternal border. Gastrointestinal: Abdomen is soft, obese, nontender, and nondistended with positive bowel sounds. Skin: Warm and dry. Cheeks are flushed. Extremities: No cyanosis or clubbing. Trace jacy ankle edema bilaterally. Radial and pedal pulses intact. Neurological: Alert and oriented x1 at baseline. Cranial nerves 2-12 are grossly intact. Speech is clear. No facial asymmetry. He is generally weak without gross focal deficits. Psychiatric: Pleasantly confused and cooperative. Eyes: General: appearance normal, both eyes and all related structures Pupils: Equal, round and reactive pupils present Neck: Neck: supple Resp: Auscultation: clear to auscultation bilaterally Cardio: Rate: regular rate GI: GI Palp: Yes Soft to palpation Skin: General skin exam: normal color Neuro: Motor exam (neuro): Normal motor muscle tone present throughout Extrem: General: normal to inspection Psych: Other: Dementia Objective Data Vital Signs Vital Signs: Vital Signs - 24 hr 09/04/23 15:07 09/04/23 16:36 09/04/23 15:40 Temperature 97.8 F Pulse Rate 83 73 Respiratory Rate 16 20 Blood Pressure 133/79 147/73 H Pulse Oximetry 95 95 Oxygen Delivery Room Air 09/04/23 20:03 09/05/23 05:53 09/05/23 08:47 Temperature 98.1 F 97.3 F L Pulse Rate 89 74 74 Respiratory Rate 15 17 Blood Pressure 147/63 H 127/83 Pulse Oximetry 95 94 Oxygen Delivery 09/05/23 08:00 Temperature Pulse Rate Respiratory Rate Blood Pressure Pulse Oximetry Oxy
[2023-09-05 16:53] LABS: Glucose Point of Care 124 mg/dl (65-105)
[2023-09-05 20:11] LABS: Glucose Point of Care 128 mg/dl (65-105)
[2023-09-05 21:20] VITALS: BP 122/53; PULSE 64; RESP 13; TEMP 36.4; O2SAT 96
[2023-09-06 05:35] VITALS: BP 138/66; PULSE 62; RESP 12; TEMP 36.1; O2SAT 97
[2023-09-06 06:28] LABS: Basophils Absolute Auto 0.1 K/mm3 (0.0-0.1); Basophils Percent Auto 0.9 % (0.2-1.2); Eosinophils Absolute Auto 0.1 K/mm3 (0-0.3); Hematocrit 42.4 % (42.0-52.0); Hemoglobin 13.7 g/dL (14.0-18.0); Immature Granulocyte Absolute 0.01 K/mm3 (0.00-0.031); Immature Granulocyte Percent A 0.2 % (0-0.5); Immature Platelet Fraction Pct 4.3 % (0.9-11.2); Lymphocytes Absolute Auto 1.34 K/mm3 (0.9-3.2); Lymphocytes Percent Auto 24.9 % (18.3-44.2); Mean Corpuscular HGB Conc 32.3 g/dl (32-36); Mean Corpuscular Hemoglobin 31.9 pg (26-34); Mean Corpuscular Volume 98.8 fl (80-100); Mean Platelet Volume 9.7 fl (7.4-10.4); Monocytes Absolute Auto 1.3 K/mm3 (0.1-0.6); Neutrophils Absolute Auto 2.6 K/mm3 (1.3-6.7); Platelet Count Result 136 k/mm3 (150-375); Red Blood Count 4.29 M/mm3 (4.6-6.20); White Blood Count 5.4 K/mm3 (4.5-10.0)
[2023-09-06 06:39] LABS: Alanine Aminotransferase 46 U/L (6-50); Albumin Level 3.3 g/dL (3.5-5.1); Alkaline Phosphatase 72 U/L (38-126); Anion Gap 6 mmol/L (8-16); Aspartate Amino Transferase 60 U/L (17-59); Bilirubin,Total 0.9 mg/dL (0.2-1.3); Blood Urea Nitrogen 23 mg/dL (9-20); Carbon Dioxide 27 mmol/L (22-30); Chloride 109 mmol/L (98-107); Estimated CRCL calculation 51 ml/min; Estimated Glomerular Filt Rate > 60; Glucose 99 mg/dL (65-110); Potassium 3.9 mmol/L (3.4-5.0); Sodium 142 mmol/L (137-145)
[2023-09-06 08:12] LABS: Glucose Point of Care 95 mg/dl (65-105)
[2023-09-06] MEDS: FOLIC ACID 0.4 MG TABLET PO (09:05)
[2023-09-06] MEDS: CLOPIDOGREL BISULFATE 75 MG TABLET PO (09:05)
[2023-09-06] MEDS: ATORVASTATIN 40 MG TABLET PO (09:05)
[2023-09-06] MEDS: OSELTAMIVIR PHOSPHATE 75 MG CAPSULE PO ×2 (09:05→20:20)
[2023-09-06] MEDS: lisinopriL 10 MG TABLET PO (09:05)
[2023-09-06] MEDS: FUROSEMIDE 40 MG TABLET PO (09:05)
[2023-09-06] MEDS: EZETIMIBE 10 MG TABLET PO (09:05)
[2023-09-06 09:06] VITALS: PULSE 100
[2023-09-06] MEDS: POTASSIUM CHLORIDE 10 MEQ ER TABLET PO (09:06)
[2023-09-06] MEDS: ASPIRIN 81 MG CHEWABLE TABLET PO (09:06)
[2023-09-06] MEDS: NEBIVOLOL HCL 5 MG TABLET 10 MG PO (09:06)
[2023-09-06 11:31] LABS: Glucose Point of Care 165 mg/dl (65-105)
[2023-09-06 14:00] VITALS: BP 125/62; PULSE 74; RESP 16; TEMP 36.5; O2SAT 98
--- NOTE | 2023-09-06 14:02 | PM.IMPN ---
Progress Note: A&P Assessment and Plan (1) Influenza A: Code(s): J10.1 - Influenza due to other identified influenza virus with other respiratory manifestations Status: Acute Assessment and Plan: Tamiflu (2) Generalized weakness: Code(s): R53.1 - Weakness Status: Acute Assessment and Plan: PT/OT eval and Rx (3) Type 2 diabetes mellitus: Code(s): E11.9 - Type 2 diabetes mellitus without complications Status: Acute (4) Coronary artery disease: Code(s): I25.10 - Atherosclerotic heart disease of [place] coronary artery without angina pectoris Status: Acute (5) Hypertension: Code(s): I10 - Essential (primary) hypertension Status: Acute (6) Peripheral arterial disease: Code(s): I73.9 - Peripheral vascular disease, unspecified Status: Acute (7) Dementia: Code(s): F03.90 - Unspecified dementia, unspecified severity, without behavioral disturbance, psychotic disturbance, mood disturbance, and anxiety Status: Acute Assessment and Plan: Falls and safety precautions Plan The patient presented to the emergency department for evaluation of cough, congestion, and weakness for the last several days as detailed in HPI. Labs, imaging, EKG, and all reports were personally reviewed. He tested positive for influenza A and he has been started on Tamiflu. Continue supportive care with analgesics and antiemetics as needed. He is on isolation per protocol. Initiate fall precautions as he is quite unsteady on his feet due to the virus. Initiate sliding scale insulin, Accu-Cheks, and hypoglycemic protocol. No acute issues with regards to his coronary artery disease or peripheral arterial disease. Continue dual anti-platelet therapy and statin. The rest of his home medications will be reviewed and resumed as appropriate. 09/06/23: Add Robitussin, IS, Ambulate, UIC; Awaiting SNF placement. Currently aiming for [facility]. Time Spent With Patient Time with patient: 25 - 35 minutes Subjective Date/time seen: 09/06/23 14:02 Interval history: Seen and examined; Tired-looking; poorly interactive due to dementia Not in painful or respiratory distress. Review of Systems Review of Systems: Unable to assess accurately given his dementia. Exam Narrative: General: Mildly ill-appearing elderly gentleman supine in bed. Weight: 104.8 kg. BMI: 31.3. HEENT: PERRL, EOMI. Hard of hearing. Sclera anicteric. Conjunctiva mildly injected. Tacky mucous membranes. Neck: Supple. Respiratory: Lungs are clear to auscultation bilaterally. Cardiovascular: Regular rate and rhythm with S1-S2. Systolic murmur at the upper sternal border. Gastrointestinal: Abdomen is soft, obese, nontender, and nondistended with positive bowel sounds. Skin: Warm and dry. Cheeks are flushed. Extremities: No cyanosis or clubbing. Trace jacy ankle edema bilaterally. Radial and pedal pulses intact. Neurological: Alert and oriented x1 at baseline. Cranial nerves 2-12 are grossly intact. Speech is clear. No facial asymmetry. He is generally weak without gross focal deficits. Psychiatric: Pleasantly confused and cooperative. Const: General: no acute distress HENMT: Mouth: Yes dry mucous membranes Eyes: General: appearance normal, both eyes and all related structures Pupils: Equal, round and reactive pupils present Neck: Neck: supple Resp: Auscultation: clear to auscultation bilaterally Cardio: Rate: regular rate Skin: General skin exam: normal color Neuro: Cranial nerves: Yes Equal, round and reactive pupils present Motor exam (neuro): Normal motor muscle tone present throughout Extrem: General: normal to inspection Psych: Mental Status: mental status grossly normal Other: Dementia Objective Data Vital Signs Vital Signs: Vital Signs - 24 hr 09/05/23 21:20 09/06/23 05:35 09/06/23 09:06 Temperature 97.5 F L 96.9 F L Pulse Rate 64 62 10
--- NOTE | 2023-09-06 15:08 | PC.NURSE ---
On 09/06/23, the SENIOR LIVING SALES COUNSELOR, Nova Daley, provided care and completed [employer] documentation on this patient. I have reviewed the SENIOR LIVING SALES COUNSELOR's documentation and agree with the findings.
[2023-09-06 17:03] LABS: Glucose Point of Care 124 mg/dl (65-105)
[2023-09-06 20:31] LABS: Glucose Point of Care 185 mg/dl (65-105)
[2023-09-06 20:32] VITALS: BP 115/54; PULSE 68; RESP 16; TEMP 36.6; O2SAT 97
[2023-09-07] VITALS (7 sets, daily range): BP systolic 111–148; BP diastolic 52–65; PULSE 56–72; RESP 16–18; TEMP 36.1–36.9; O2SAT 95–100
[2023-09-07 06:31] LABS: Basophils Absolute Auto 0.1 K/mm3 (0.0-0.1); Eosinophils Absolute Auto 0.3 K/mm3 (0-0.3); Eosinophils Percent Auto 5.8 % (0-4.4); Hematocrit 43.1 % (42.0-52.0); Hemoglobin 13.9 g/dL (14.0-18.0); Immature Granulocyte Absolute 0.02 K/mm3 (0.00-0.031); Immature Granulocyte Percent A 0.3 % (0-0.5); Immature Platelet Fraction Pct 4.2 % (0.9-11.2); Lymphocytes Percent Auto 29.2 % (18.3-44.2); Mean Corpuscular HGB Conc 32.3 g/dl (32-36); Mean Corpuscular Hemoglobin 31.7 pg (26-34); Mean Corpuscular Volume 98.4 fl (80-100); Mean Platelet Volume 10.2 fl (7.4-10.4); Monocytes Percent Auto 16.3 % (2.6-8.5); Neutrophils Absolute Auto 2.8 K/mm3 (1.3-6.7); Neutrophils Percent Auto 47.4 % (45.5-73.1); Platelet Count Result 147 k/mm3 (150-375); Red Blood Count 4.38 M/mm3 (4.6-6.20); Red Cell Distribution Width 13.8 % (11.5-14.5); White Blood Count 5.8 K/mm3 (4.5-10.0)
[2023-09-07 06:40] LABS: Alanine Aminotransferase 52 U/L (6-50); Albumin Level 3.3 g/dL (3.5-5.1); Alkaline Phosphatase 70 U/L (38-126); Anion Gap 8 mmol/L (8-16); Aspartate Amino Transferase 60 U/L (17-59); Bilirubin,Total 0.8 mg/dL (0.2-1.3); Blood Urea Nitrogen 30 mg/dL (9-20); Calcium 8.1 mg/dL (8.4-10.2); Carbon Dioxide 25 mmol/L (22-30); Chloride 109 mmol/L (98-107); Estimated CRCL calculation 47 ml/min; Estimated Glomerular Filt Rate > 60; Glucose 114 mg/dL (65-110); Potassium 3.8 mmol/L (3.4-5.0); Sodium 142 mmol/L (137-145)
[2023-09-07 08:08] LABS: Glucose Point of Care 120 mg/dl (65-105)
[2023-09-07] MEDS: FUROSEMIDE 40 MG TABLET PO (09:03)
[2023-09-07] MEDS: FOLIC ACID 0.4 MG TABLET PO (09:04)
[2023-09-07] MEDS: ATORVASTATIN 40 MG TABLET PO (09:04)
[2023-09-07] MEDS: ASPIRIN 81 MG CHEWABLE TABLET PO (09:04)
[2023-09-07] MEDS: lisinopriL 10 MG TABLET PO (09:04)
[2023-09-07] MEDS: OSELTAMIVIR PHOSPHATE 75 MG CAPSULE PO ×2 (09:04→21:57)
[2023-09-07] MEDS: NEBIVOLOL HCL 5 MG TABLET 10 MG PO (09:04)
[2023-09-07] MEDS: CLOPIDOGREL BISULFATE 75 MG TABLET PO (09:04)
[2023-09-07] MEDS: POTASSIUM CHLORIDE 10 MEQ ER TABLET PO (09:04)
[2023-09-07] MEDS: EZETIMIBE 10 MG TABLET PO (09:07)
[2023-09-07 11:23] LABS: Glucose Point of Care 222 mg/dl (65-105)
[2023-09-07] MEDS: ACETAMINOPHEN 325 MG TABLET 650 MG PO ×2 (11:27→17:30)
[2023-09-07] MEDS: INSULIN ASPART (*BKC) 100 UNITS/ML SUB-Q (11:28)
--- NOTE | 2023-09-07 13:15 | ECG_ITS ---
Measurements Intervals [place] Rate: 68 P: 71 IA: 262 QRS: -74 QRSD: 85 T: 19 QT: 412 QTc: 441 Interpretive Statements SINUS RHYTHM WITH FIRST DEGREE AV BLOCK LOW QRS VOLTAGE IN PRECORDIAL LEADS INFERIOR INFARCT, AGE INDETERMINATE ANTEROSEPTAL INFARCT, AGE INDETERMINATE ABNORMAL ECG COMPARED TO ECG 09/04/2023 13:50:35 NO SIGNIFICANT CHANGES Electronically Signed On 09-07-2023 13:55:32 INTERNATIONAL TRADE ANALYST by Gilberto Head D.O.
--- NOTE | 2023-09-07 14:27 | PM.IMPN ---
Progress Note: A&P Assessment and Plan (1) Influenza A: Code(s): J10.1 - Influenza due to other identified influenza virus with other respiratory manifestations Status: Acute Assessment and Plan: Tamiflu Managed supportively (2) Generalized weakness: Code(s): R53.1 - Weakness Status: Acute Assessment and Plan: PT/OT eval and Rx Awaiting SNF placement (3) Type 2 diabetes mellitus: Code(s): E11.9 - Type 2 diabetes mellitus without complications Status: Acute Assessment and Plan: Chronic, stable Provide insulin coverage (4) Coronary artery disease: Code(s): I25.10 - Atherosclerotic heart disease of [place] coronary artery without angina pectoris Status: Acute Assessment and Plan: on statin, ACEi, BB (5) Hypertension: Code(s): I10 - Essential (primary) hypertension Status: Acute Assessment and Plan: on Nebivolol (6) Peripheral arterial disease: Code(s): I73.9 - Peripheral vascular disease, unspecified Status: Acute Assessment and Plan: Resume statin (7) Dementia: Code(s): F03.90 - Unspecified dementia, unspecified severity, without behavioral disturbance, psychotic disturbance, mood disturbance, and anxiety Status: Acute Assessment and Plan: Falls and safety precautions (8) Chest pain: Code(s): R07.9 - Chest pain, unspecified Status: Acute Assessment and Plan: Troponin, ECG, Aspirin CXR: interstitial edema Plan The patient presented to the emergency department for evaluation of cough, congestion, and weakness for the last several days as detailed in HPI. Labs, imaging, EKG, and all reports were personally reviewed. He tested positive for influenza A and he has been started on Tamiflu. Continue supportive care with analgesics and antiemetics as needed. He is on isolation per protocol. Initiate fall precautions as he is quite unsteady on his feet due to the virus. Initiate sliding scale insulin, Accu-Cheks, and hypoglycemic protocol. No acute issues with regards to his coronary artery disease or peripheral arterial disease. Continue dual anti-platelet therapy and statin. The rest of his home medications will be reviewed and resumed as appropriate. 09/06/23: Add Robitussin, IS, Ambulate, UIC; Awaiting SNF placement. Currently aiming for [facility]. Subjective Date/time seen: 09/07/23 14:27 Interval history: Seen and examined; Tired-looking; poorly interactive due to dementia Not in painful or respiratory distress. complains of chest pain on exertion Review of Systems Review of Systems: Unable to assess accurately given his dementia. Exam Narrative: General: Mildly ill-appearing elderly gentleman supine in bed. Weight: 104.8 kg. BMI: 31.3. HEENT: PERRL, EOMI. Hard of hearing. Sclera anicteric. Conjunctiva mildly injected. Tacky mucous membranes. Neck: Supple. Respiratory: Lungs are clear to auscultation bilaterally. Cardiovascular: Regular rate and rhythm with S1-S2. Systolic murmur at the upper sternal border. Gastrointestinal: Abdomen is soft, obese, nontender, and nondistended with positive bowel sounds. Skin: Warm and dry. Cheeks are flushed. Extremities: No cyanosis or clubbing. Trace jacy ankle edema bilaterally. Radial and pedal pulses intact. Neurological: Alert and oriented x1 at baseline. Cranial nerves 2-12 are grossly intact. Speech is clear. No facial asymmetry. He is generally weak without gross focal deficits. Psychiatric: Pleasantly confused and cooperative. Const: General: no acute distress HENMT: Mouth: Yes dry mucous membranes Eyes: General: appearance normal, both eyes and all related structures Pupils: Equal, round and reactive pupils present Neck: Neck: supple Resp: Auscultation: clear to auscultation bilaterally Cardio: Rate: regular rate Skin: General skin exam: normal color Neuro: Cranial nerves: Y
[2023-09-07 15:00] LABS: NT Pro B Type Natriuretic Pept 931 pg/mL (19.9-100)
--- NOTE | 2023-09-07 15:47 | PM.CNCAR ---
Assessment and Plan Assessment and plan (1) Chest pain: Code(s): R07.9 - Chest pain, unspecified Status: Acute Assessment and Plan: Ill-defined chest pain. Patient himself cannot further describe it as he does not remember having chest pain. Family at bedside stated that he had a brief episode of sharp chest pain that lasted a short period of time. EKG shows no acute ST or T-wave abnormalities. Troponins are minimally elevated which may be related to a multitude of etiologies including his recent viral illness from influenza a, CHF, underlying CAD and type 2 infarction or even related to the fall that he had a couple of days ago. Telemetry is already ordered by the hospitalist. Will continue his aspirin, atorvastatin, clopidogrel, Zetia, lisinopril, nebivolol. Chest x-ray did show some mild pulmonary vascular congestion will give a dose of IV furosemide in the form of 20 mg IV x1 as he may be slightly volume overloaded and he does have crackles on exam (2) Elevated troponin: Code(s): R79.89 - Other specified abnormal findings of blood chemistry Status: Acute Assessment and Plan: Will continue to trend every. Troponin to be repeated. If no significant change, no further troponins need to be repeated unless there is a change in his clinical status (3) Coronary artery disease: Code(s): I25.10 - Atherosclerotic heart disease of [place] coronary artery without angina pectoris Status: Acute Assessment and Plan: Continue current medical regimen as detailed above (4) History of left-sided carotid endarterectomy: Onset Date: 05/2020 Code(s): Z98.890 - Other specified postprocedural states Status: Acute (5) Vascular dementia: Qualifiers: Dementia behavioral or psychological symptom: without behavioral, psychotic, or mood disturbance or anxiety Dementia severity: unspecified severity Qualified Code(s): F01.50 - Vascular dementia, unspecified severity, without behavioral disturbance, psychotic disturbance, mood disturbance, and anxiety Code(s): F01.50 - Vascular dementia, unspecified severity, without behavioral disturbance, psychotic disturbance, mood disturbance, and anxiety Status: Acute Assessment and Plan: Severe (6) Influenza A: Code(s): J10.1 - Influenza due to other identified influenza virus with other respiratory manifestations Status: Acute Assessment and Plan: Treatment per hospitalist History of Present Illness History of Present Illness Consult date/time: 09/07/23 15:47 Requesting physician: Jose Norris MD Consult reason: chest pain Reason For Visit: Influenza A/Generalized Weak Narrative: Reason for consultation: Chest pain, elevated troponin Date of service 09/07/2023 Requesting provider: Dr. Norris History patient is an 88-year-old male who came to the hospital because of cough, congestion, weakness, fall. He was found to be influenza positive. Is said decreased level of consciousness, decreased appetite and was more non communicative than usual. He has a significant vascular history and follows with Dr. Cheung for vascular and aortic valve disease. He has a history of a stroke, CAD, dementia, hypertension, hyperlipidemia, diabetes. Reportedly, this afternoon patient spoke and said that he had some left lateral chest pain. Patient himself does not remember having chest pain [place] give me any details as to did chest pain. Family is at bedside he did state that he told them that it was brief and sharp in nature. This led to a EKG with results as below but in brief does not show any acute ST or T-wave abnormalities. Reflexively a troponin was also drawn which was minimally elevated at 0.1 and cardiology consultation was therefore requested. At present patient is lying comfortably in bed. He is reportedly tired but cannot communicate that to me. There is no shortness of breath, acti
[2023-09-07] MEDS: FUROSEMIDE INJ 40 MG/4 ML VIAL 20 MG IV PUSH (16:31)
[2023-09-07 16:35] LABS: Glucose Point of Care 166 mg/dl (65-105)
[2023-09-07 18:18] LABS: Troponin I 0.096 ng/mL (0.000-0.034)
[2023-09-07 23:56] LABS: Glucose Point of Care 163 mg/dl (65-105)
[2023-09-08] VITALS: PULSE 56
[2023-09-08 04:00] VITALS: PULSE 58
[2023-09-08 05:11] VITALS: BP 139/62; PULSE 61; RESP 16; TEMP 36.6; O2SAT 100
[2023-09-08 06:20] LABS: Basophils Absolute Auto 0.1 K/mm3 (0.0-0.1); Basophils Percent Auto 0.8 % (0.2-1.2); Eosinophils Absolute Auto 0.5 K/mm3 (0-0.3); Eosinophils Percent Auto 7.7 % (0-4.4); Hematocrit 42.8 % (42.0-52.0); Hemoglobin 13.9 g/dL (14.0-18.0); Immature Granulocyte Absolute 0.01 K/mm3 (0.00-0.031); Immature Granulocyte Percent A 0.2 % (0-0.5); Lymphocytes Absolute Auto 1.73 K/mm3 (0.9-3.2); Lymphocytes Percent Auto 26.6 % (18.3-44.2); Mean Corpuscular HGB Conc 32.5 g/dl (32-36); Mean Corpuscular Hemoglobin 32.1 pg (26-34); Mean Corpuscular Volume 98.8 fl (80-100); Mean Platelet Volume 10.2 fl (7.4-10.4); Monocytes Absolute Auto 0.8 K/mm3 (0.1-0.6); Neutrophils Absolute Auto 3.4 K/mm3 (1.3-6.7); Neutrophils Percent Auto 52.7 % (45.5-73.1); Platelet Count Result 145 k/mm3 (150-375); Red Blood Count 4.33 M/mm3 (4.6-6.20); Red Cell Distribution Width 13.6 % (11.5-14.5); White Blood Count 6.5 K/mm3 (4.5-10.0)
[2023-09-08 06:38] LABS: Alanine Aminotransferase 46 U/L (6-50); Albumin Level 3.4 g/dL (3.5-5.1); Alkaline Phosphatase 70 U/L (38-126); Anion Gap 8 mmol/L (8-16); Aspartate Amino Transferase 48 U/L (17-59); Bilirubin,Total 0.9 mg/dL (0.2-1.3); Blood Urea Nitrogen 31 mg/dL (9-20); Calcium 8.2 mg/dL (8.4-10.2); Carbon Dioxide 25 mmol/L (22-30); Chloride 111 mmol/L (98-107); Estimated CRCL calculation 51 ml/min; Estimated Glomerular Filt Rate > 60; Glucose 130 mg/dL (65-110); Potassium 3.6 mmol/L (3.4-5.0); Sodium 144 mmol/L (137-145)
[2023-09-08 07:43] LABS: Glucose Point of Care 152 mg/dl (65-105)
[2023-09-08] MEDS: lisinopriL 10 MG TABLET PO (09:08)
[2023-09-08 09:09] VITALS: PULSE 61
[2023-09-08] MEDS: POTASSIUM CHLORIDE 10 MEQ ER TABLET PO (09:09)
[2023-09-08] MEDS: FUROSEMIDE 40 MG TABLET PO (09:09)
[2023-09-08] MEDS: FOLIC ACID 0.4 MG TABLET PO (09:09)
[2023-09-08] MEDS: EZETIMIBE 10 MG TABLET PO (09:09)
[2023-09-08] MEDS: CLOPIDOGREL BISULFATE 75 MG TABLET PO (09:09)
[2023-09-08] MEDS: ATORVASTATIN 40 MG TABLET PO (09:09)
[2023-09-08] MEDS: NEBIVOLOL HCL 5 MG TABLET 10 MG PO (09:09)
[2023-09-08] MEDS: OSELTAMIVIR PHOSPHATE 75 MG CAPSULE PO (09:09)
[2023-09-08] MEDS: ASPIRIN 81 MG CHEWABLE TABLET PO (09:09)
[2023-09-08 11:40] LABS: Glucose Point of Care 168 mg/dl (65-105)
--- NOTE | 2023-09-08 13:06 | PM.DS ---
DS: Admitting Diagnosis Discharge Date 09/08/23 Admitting Diagnosis 1. Influenza A 2. Fatigue; Physical deconditioning 3. Chest pain. Probable ACS Per cardiology: EKG shows no acute ST or T-wave abnormalities.? Troponins are minimally elevated which may be related to a multitude of etiologies including his recent viral illness from influenza a, CHF, underlying CAD and type 2 infarction or even related to the fall that he had a couple of days ago.? Telemetry is already ordered by the hospitalist.? Will continue his aspirin, atorvastatin, clopidogrel, Zetia, lisinopril, nebivolol.? Chest x-ray did show some mild pulmonary vascular congestion will give a dose of IV furosemide in the form of 20 mg IV x1 as he may be slightly volume overloaded and he does have crackles on exam DS: Discharge Diagnosis Discharge Diagnosis (1) Influenza A: Code(s): J10.1 - Influenza due to other identified influenza virus with other respiratory manifestations Status: Acute (2) Elevated troponin: Code(s): R79.89 - Other specified abnormal findings of blood chemistry Status: Acute (3) Chest pain: Code(s): R07.9 - Chest pain, unspecified Status: Acute (4) Physical deconditioning: Code(s): R53.81 - Other malaise Status: Acute (5) Obesity: Qualifiers: Obesity type: unspecified obesity type Obesity classification: adult class 1 (BMI 30 - 34.9) Serious obesity comorbidity presence: with serious comorbidity Body mass index: BMI 34.0-34.9 Qualified Code(s): E66.9 - Obesity, unspecified; Z68.34 - Body mass index [BMI] 34.0-34.9, adult Code(s): E66.9 - Obesity, unspecified Status: Acute Plan Acute and principal conditions 1. Influenza A infection. Managed supportively with Oseltamivir, Anti-tussives, analgesia, optimize hydration and nutrition. 2. Physical deconditioning. Will be DC'd to SNF for physical rehabilitation. 3. Chest pain. probably ACS; Elevated NSTEMi 4. Probable fluid overload; BNP 931. on Lasix Chronic and stable conditions 1. CAD. on Plavix, Aspirin, Statin, BB 2. Dyslipidemia. on Statin 3. Obesity, BMI 28. Diet and lifestyle modification 4. Hypertension. On Lisinopril, Nebivolol 5. 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 on Furosemide 6. NIDDM. Basal+correctional insulin regimen Miscellaneous care. 1. Disposition. SNF @ discharge 2. VTE Prophylaxis. SCDs; Clopidogrel, Aspirin 3. Nutrition. Heart-healthy; Carb-controlled DS: Summary Hospital Course Reason for hospitalization: 1. Myalgias;Fatigue; Physical deconditioning 2. Influenza A infection Hospital Course: 1. Admitted, 08/15/23 Marco A Metcalf is a?88-year-old male with history of stroke, dementia, coronary artery disease, hypertension, hyperlipidemia, type 2 diabetes mellitus, and other comorbidities who presented to the emergency department via EMS for evaluation of cough, congestion, and weakness. He is not able to provide an accurate history and some of the following history is supplemented via a review of his EMR as well as information provided by family. He has not felt well for several days with a cough, congestion, and increasing weakness and is my understanding that he had a fall last night though no specifics were provided and there were no reports of injuries. His recently tested positive for influenza and he in fact tested positive for the same today. Initial plans were for discharge home however he was very unsteady on his feet with ambulatory challenge and family did not feel comfortable taking him home and he is being admitted in this setting. At the time my evaluation he is resting comfortably and complains of generalized malaise and body aches. He has no current complaints and he denies known fever, sore throat, chest pain, shortness a breath, abdominal pain, nausea, vomiting, and diarrhea. 2. Work-up findings: Chest X-Ray? 09/04/23: Clear lungs. Head CT? 09/04/23: No intracranial hem
[2023-09-08 13:37] LABS: SARS-CoV-2 RNA PCR Negative (Negative)
[2023-09-08 14:00] VITALS: BP 126/70; PULSE 67; RESP 17; TEMP 35.9; O2SAT 100
== END 2023-09-08 14:38 ==
LOC: ANHED 12:55 → ANH3MEDSUR 15:13
PROVIDERS: Internal Medicine Cardiovascular Disease; Physician Assistant; Admitting Provider Internal Medicine; Emergency Provider Emergency Medicine; PCP Family Medicine; Visit Provider Internal Medicine
DX: J10.1 Influenza due to other identified influenza virus with other respiratory manifestations (principal); R07.9 Chest pain, unspecified; I11.0 Hypertensive heart disease with heart failure; I50.40 Unspecified combined systolic (congestive) and diastolic (congestive) heart failure; R79.89 Other specified abnormal findings of blood chemistry; R53.1 Weakness; R53.81 Other malaise; E78.5 Hyperlipidemia, unspecified; I25.10 Atherosclerotic heart disease of native coronary artery without angina pectoris; E78.2 Mixed hyperlipidemia; Z86.73 Personal history of transient ischemic attack (TIA), and cerebral infarction without residual deficits; E11.51 Type 2 diabetes mellitus with diabetic peripheral angiopathy without gangrene; F01.50 Vascular dementia, unspecified severity, without behavioral disturbance, psychotic disturbance, mood disturbance, and anxiety; H90.6 Mixed conductive and sensorineural hearing loss, bilateral; Z95.1 Presence of aortocoronary bypass graft; Z20.822 Contact with and (suspected) exposure to COVID-19; Z79.82 Long term (current) use of aspirin; Z79.02 Long term (current) use of antithrombotics/antiplatelets; Z98.890 Other specified postprocedural states; E66.9 Obesity, unspecified; Z68.28 Body mass index [BMI] 28.0-28.9, adult
CPT/HCPCS: 36415; 70450; 71045; 80048; 80053; 81003; 82948; 83735; 83880; 84443; 84484; 85025; 85027; 85055; 87635; 87637; 93005; 96365; 97110; 97116; 97162; 97165; 97530; 97535; 99285; A9270; G0378; J1815; J1940